=== PATIENT | male | born 1955 | race Caucasian/White ===

== ENCOUNTER 2020-02-08 23:04 | Emergency (ER) | payer MEDICARE, BC, SELFPAY ==
[2020-02-08 23:09] VITALS: BP 148/80; PULSE 70; RESP 20; TEMP 36.4; O2SAT 95; BMI 46.0
--- NOTE | 2020-02-08 23:14 | ED_ITS ---
HPI - Neck Pain/Injury General: Chief Complaint: Neck Pain/Injury Stated Complaint: neck pain Time Seen by Provider: 02/08/20 23:12 Source: patient Mode of arrival: ambulatory Limitations: no limitations History of Present Illness: HPI Narrative: Patient comes in today with guarded neck pain and right-sided paracervical muscle tenderness and tightness. Patient reports that he woke up this morning with pain in his right side of neck. Patient took ibuprofen this morning and then this evening with minimal to no relief. Patient went to go to bed tonight but had worsening pain when he rolled over in bed. Patient appears well. Patient appears in no acute distress. Review of Systems General: Reports: 10 or more systems reviewed and unremarkable except in HPI and below Musc: Reports: neck pain PFSH ED PFSH: Family History (Updated 02/04/20 @ 15:53 by Sigrid Guillen RN) Father Diabetes Social History (Updated 02/04/20 @ 15:54 by Sigrid Guillen RN) Smoking and tobacco status: former smoker Household members: spouse Marital status: Physical Exam Const: COMMON NORMALS: no acute distress and patient oriented x3 GENERAL APPEARANCE: cooperative HENMT: COMMON NORMALS: normocephalic and Normal external nose present HEAD & SCALP: normal to inspection and normocephalic NOSE: Normal external nose present MOUTH: Normal oral and palatal mucosa present THROAT: posterior oropharynx normal Eye: GENERAL EYE: appearance normal, both eyes and all related structures Neck/C-Spine: CERVICAL SPINE: Yes Paracervical muscle tenderness right, Yes Paracervical spasm right and Yes Trapezius muscle tenderness right Lymph: LYMPHATIC: no lymphadenopathy noted Chest: COMMONS NORMALS: normal inspection of the chest Resp: COMMON NORMALS: normal respiratory effort EFFORT & INSPECTION: Yes able to speak in complete sentences Cardio: COMMON NORMALS: regular rate and regular rhythm RATE: regular rate RHYTHM: regular rhythm GI: COMMON NORMALS: non-tender Back/Pelvis: COMMON NORMALS: thoracic and lumbar spine normal to inspection Extremity: COMMON NORMALS: normal to inspection Neuro: COMMON NORMALS: patient oriented x3 and moves all extremities Psych: COMMON NORMALS: mental status grossly normal and cooperative Skin: COMMON NORMALS: no rashes or lesions noted GENERAL SKIN EXAM: no rashes or lesions noted Course Vital Signs: Vital signs: Vital Signs Temperature 97.6 F 02/08/20 23:09 Pulse Rate 62 02/09/20 00:37 Respiratory Rate 18 02/09/20 00:37 Blood Pressure 131/64 02/09/20 00:37 Pulse Oximetry 97 02/09/20 00:37 MDM - Neck Pain/Injury MDM Narrative: Medical decision making narrative: Patient comes in today for complaints of right side neck pain. Patient reports awakening with the pain that is worsened throughout the day. Patient reports that movement of his neck brings on the pain and exacerbates it. Exam notes muscle tenderness and muscle spasms to the right side of the neck. No point tenderness along the vertebral spine. No carotid bruits are noted on auscultation. No carotid tenderness is noted on palpation. Vital signs are normal. Differential diagnosis includes but not limited to intervertebral disc disease, facet arthropathy, strain of the muscle, torticollis. Reviewed exam with patient recommended treatment for muscle strain. Recommend tizanidine for muscle spasticity and then Tylenol and ibuprofen otherwise for pain. Patient was medicated with hydrocodone and orphenadrine and ketorolac in the ER with some relief. Patient was also given 1 dose of morphine IM due to persistent pain and request from patient. I did discuss with patient further exercises such as stretching and range of motion exercises for the neck to help relieve some of the pain. Patient reported understanding and agreed with plan. Discharge Plan Discharge Patient Disposition: Home, Self-Care Clinical Impression: Strain of neck muscle Qualifiers: Encounter type: initial encounter Qualified Code(s): S16.1XXA - Strain of muscle, fascia and tendon at neck level, initial encounter Condition: Stable Prescriptions: New tizanidine 4 mg tablet 4 mg PO Q6H PRN (Reason: muscle spasticity) Qty: 20 RF: 0 No Action metoprolol tartrate 25 mg tablet 25 mg PO BID RF: 0 spironolactone 25 mg tablet 25 mg PO DAILY RF: 0 furosemide 40 mg tablet 40 mg PO DAILY RF: 0 clopidogrel 75 mg tablet 75 mg PO DAILY RF: 0 losartan 100 mg tablet 100 mg PO DAILY RF: 0 simvastatin 40 mg tablet 40 mg PO DAILY RF: 0 Xarelto 15 mg tablet 15 mg PO DAILY RF: 0 Farxiga 5 mg tablet 5 mg PO DAILY RF: 0 Humulin R Regular U-100 Insuln 100 unit/mL solution 10 unit SUBCUT TID RF: 0 nitroglycerin [Nitrostat] 0.4 mg tablet, sublingual 0.4 mg SUBLINGUAL Q5M PRNRF: 0 colchicine 0.6 mg capsule 0.6 mg PO DAILY RF: 0 Discharge Orders: Discharge Order (Routine); Ordered 02/09/20 Ordered By: Mina Gonzalez Discharge Diet: Usual diet Discharge Activity: Increase activity as tolerated Patient Instructions: Cervical Spine Strain (ED) Activity Restrictions/Additional Instructions: Drink plenty of fluids. Use acetaminophen or ibuprofen as needed for pain. Take muscle relaxer 4 times a day to help with muscle tension. Gently use range of motion and stretching exercises to help relax the neck muscles. Use a towel roll under the neck while sleeping. Follow-up with primary care for further treatment. Return to the ER for difficulty breathing or new concerns. Discharge Date/Time: 02/09/20 00:39 Coding Level of Care Code ED Robotics Testing Technician for Rupa Monique Exam Comprehensive
[2020-02-08] MEDS: HYDROcodone-acetaminophen 7.5-325 mg Tablet 1 TAB PO (23:26)
[2020-02-08] MEDS: ketorolac 30 mg/mL INJ IM (23:27)
[2020-02-08] MEDS: orphenadrine 30 mg/mL Inj 2 mL 60 MG IM (23:27)
[2020-02-09 00:32] VITALS: RESP 18; O2SAT 97
[2020-02-09] MEDS: morphine 4 mg/mL SDV 1 mL IM (00:32)
[2020-02-09 00:33] VITALS: BP 131/64; PULSE 64; RESP 18; O2SAT 97
[2020-02-09 00:37] VITALS: BP 131/64; PULSE 62; RESP 18; O2SAT 97
== END 2020-02-09 00:39 | disposition home or self-care (01) ==
PROVIDERS: Emergency Provider Nurse Practitioner Family
DX: S16.1XXA Strain of muscle, fascia and tendon at neck level, initial encounter (principal); X58.XXXA Exposure to other specified factors, initial encounter; Z79.02 Long term (current) use of antithrombotics/antiplatelets; Z87.891 Personal history of nicotine dependence
CPT/HCPCS: 12345; 96372; 99281; 99283; J1885; J2270; J2360

== ENCOUNTER 2020-05-07 22:36 | Emergency (ER) | payer MEDICARE, BC, SELFPAY ==
[2020-05-07 22:45] VITALS: BP 153/91; PULSE 77; RESP 14; TEMP 36.5; O2SAT 96; BMI 47.5
[2020-05-07 23:36] VITALS: BP 151/71; PULSE 76; RESP 17; O2SAT 97
--- NOTE | 2020-05-07 23:36 | W.ED.EXTPRO ---
HPI - Extremity Problem General: Chief complaint: Extremity Problem,Nontraumatic Stated complaint: leg cramps Time Seen by Provider: 05/07/20 23:35 History of Present Illness: HPI Narrative: Patient is a 64-year-old male who comes to the ED with right lower extremity leg cramp. Patient has a past medical history of morbid obesity, diabetes, hypertension, CKD, A. fib and diastolic dysfunction. Patient is on Xarelto. Patient states that last night he woke up in the middle night with a painful leg cramp in his right calf. Pain has now migrated down into the lower leg just above the ankle. Patient also endorses having some right lower extremity edema. Patient has taken ibuprofen at home to help with pain. Patient rates pain in the leg at 10 and 10. Denies past medical history of blood clots. Patient denies any recent injury or trauma to leg. Associated symptoms: Deny chest pain, fever(s) or rash Review of Systems Const: Denies: fever(s), chills or fatigue Eyes: Denies: change in vision or eye discomfort ENMT: Denies: throat pain, odynophagia, nasal discharge or nasal congestion Card: Denies: chest pain, palpitations, edema, swelling of feet/ankles, dyspnea on exertion or orthopnea Resp: Denies: dyspnea, productive cough or non-productive cough GI: Denies: abdominal pain, nausea, vomiting, diarrhea, constipation or hematochezia : Denies: flank pain, difficulty urinating, dysuria or hematuria Musc: Reports: extremity pain (Right lower extremity), extremity swelling (Right lower extremity) and muscle cramps (right calf); Denies: neck pain or back pain Skin/Breast: Denies: rash or new lesions Neuro: Denies: headache(s), numbness in extremities or weakness in extremities PFSH ED PFSH: Medical History Anticoagulant long-term use Atrial fibrillation CKD (chronic kidney disease) Diabetes Diastolic dysfunction HTN (hypertension) Morbid obesity ARELY on CPAP Surgical History S/P gastric bypass S/P PTCA (percutaneous transluminal coronary angioplasty) Family History Father Diabetes Social History Smoking and tobacco status: former smoker Household members: spouse Marital status: Physical Exam Const: COMMON NORMALS: patient oriented x3 and alert GENERAL APPEARANCE: cooperative; not comfortable (Patient appears uncomfortable due to pain right leg.) NUTRITIONAL APPEARANCE: obese morbidly obese HENMT: COMMON NORMALS: normocephalic HEAD & SCALP: normocephalic MOUTH: Normal oral and palatal mucosa present THROAT: posterior oropharynx normal and uvula midline Eye: COMMON NORMALS: Equal, round and reactive pupils present PUPIL: Yes Equal, round and reactive pupils present Neck/C-Spine: COMMON NORMALS: supple GENERAL: Yes normal visual inspection Resp: COMMON NORMALS: normal respiratory effort, No retractions, No use of accessory muscles and clear to auscultation bilaterally AUSCULTATION: clear to auscultation bilaterally Cardio: COMMON NORMALS: regular rate, regular rhythm, S1 normal heart sound present, S2 normal heart sound present, No gallops present (Cardio), No clicks present (Cardio) and No murmurs present (Cardio) RATE: regular rate RHYTHM: regular rhythm HEART SOUNDS: S1 normal heart sound present and S2 normal heart sound present PERIPHERAL PULSES: radial pulses present positive bilateral 2+ and dorsalis pedis present positive bilateral 1+ GI: COMMON NORMALS: Normal to inspection, nondistended, normoactive bowel sounds present, Soft to palpation, non-tender and no masses PALPATION: Yes Soft to palpation : COMMON NORMALS: Yes no CVA tenderness BLADDER/KIDNEY EXAM: Yes no CVA tenderness Back/Pelvis: COMMON NORMALS: no CVA tenderness Extremity: GENERAL: Yes normal exam except as noted and Yes edema (Right lower extremity has 1+ nonpitting edema.) RIGHT LOWER EXTREMITY: Yes lower leg Right lower leg: Yes inspection (No erythema or visible deformity seen.), Yes palpation (Tenderness upon palpation of the inferior aspect of right calf.) and Yes neurovascular exam (Pedal pulse 2+) Neuro: COMMON NORMALS: patient oriented x3 and moves all extremities SENSORIUM/ORIENTATION: Yes alert Skin: GENERAL SKIN EXAM: dry skin Course Vital Signs: Vital signs: Vital Signs Temperature 97.7 F 05/08/20 01:46 Pulse Rate 71 05/08/20 01:46 Respiratory Rate 18 05/08/20 01:46 Blood Pressure 136/71 05/08/20 01:46 Pulse Oximetry 93 05/08/20 01:46 MDM - Extremity (Nontraumatic) MDM Narrative: Medical decision making narrative: Patient is a 64-year-old male who comes to the ED with a cramp in right lower extremity. Patient denies any injury or trauma to cause pain. Patient has some tenderness upon palpation of the right calf with some mild edema of the right leg as well. Ultrasound venous duplex of right lower extremity showed no blood clot or DVT seen. Patient was given a muscle relaxer and some morphine while here in the ED and symptoms did improve. Glucose of 313 and rest of CMP was unremarkable. Patient was given 5 units of insulin Novalog. Patient was discharged and told to follow-up with PCP 7 to 10 days for reevaluation. Sent patient home with a prescription for Robaxin. Return to ED precautions given. Patient understood and agreed with plan Lab Data: Attestation: I reviewed the patient's lab results. Labs: Lab Results 05/08/20 Range/Units 00:10 Sodium 135 L (136-145) mmol/L Potassium 4.1 (3.5-5.1) mmol/L Chloride 97 L (98-107) mmol/L Carbon Dioxide 24 (22-29) mmol/L Anion Gap 18.1 (5-19) BUN 32 H (8-23) mg/dL Creatinine 1.2 (0.7-1.2) mg/dL GFR Calculation 61.1 L (90-130) mL/min Glucose 313 H (65-115) mg/dL Calculated Osmolal ity 299 H (285-295) mOsm/k g Calcium 10.1 (8.5-10.5) mg/dL Total Bilirubin 0.6 (0.15-1.2) mg/dL AST 23 (0-40) U/L ALT 23 (0-41) U/L Alkaline Phosphata se 76 (40-130) IU/L Total Protein 7.2 (6.6-8.7) g/dL Albumin 4.5 (3.5-5.2) g/dL Globulin 2.7 (1.3-4.6) g/dL Imaging Data^: US Vascular: Attestation: I personally reviewed and interpreted this imaging study as follows: Radiologist's impression: Ultrasound venous duplex of right lower extremity?prelim report shows no DVTs or blood clots seen. Discharge Plan Discharge Patient Disposition: Home Clinical Impression: Cramp in lower leg Condition: Stable Prescriptions: New methocarbamol 750 mg tablet 750 mg PO Q8H Qty: 15 RF: 0 No Action Humulin R Regular U-100 Insuln 100 unit/mL solution 10 unit SUBCUT TID RF: 0 Farxiga 5 mg tablet 10 mg PO DAILY RF: 0 clopidogrel 75 mg tablet 75 mg PO DAILY 90 Days Qty: 90 RF: 3 furosemide 40 mg tablet 40 mg PO DAILY 90 Days Qty: 90 RF: 3 losartan 100 mg tablet 100 mg PO DAILY 90 Days Qty: 90 RF: 3 metoprolol tartrate 25 mg tablet 25 mg PO BID 90 Days Qty: 180 RF: 3 Xarelto 15 mg tablet 15 mg PO DAILY 90 Days Qty: 90 RF: 3 simvastatin 40 mg tablet 40 mg PO DAILY 90 Days Qty: 90 RF: 3 nitroglycerin [Nitrostat] 0.4 mg tablet, sublingual 0.4 mg SUBLINGUAL Q5M PRN (Reason: chest pain) 90 Days Qty: 25 RF: 3 spironolactone 25 mg tablet 25 mg PO DAILY Qty: 90 RF: 3 tizanidine 4 mg tablet 4 mg PO Q6H PRN (Reason: muscle spasticity) Qty: 20 RF: 0 Discharge Orders: Discharge Order (Routine); Ordered 05/08/20 Ordered By: Rustam Venegas Referrals: Nam Mazariegos MD [Primary Care Provider] - Discharge Diet: Regular Discharge Activity: Increase activity as tolerated Patient Instructions: Leg Cramps (ED) Activity Restrictions/Additional Instructions: Follow-up with medical provider as directed in about 7 days. Take medications as prescribed. Sending you home with a prescription for muscle relaxer (methocarbamol). Muscle relaxer can cause some drowsiness so take at night before bed. If you do take during the day use with caution. Do not take tizanidine your other muscle relaxer along with methocarbamol. Take [id number] Tylenol for pain. Stretch right lower leg in place cold pack on lying down for symptoms. Return to the ER or your medical provider if condition worsens. Please read and understand discharge instructions. If any questions, please ask. Discharge Date/Time: 05/08/20 01:46 Coding Level of Care Code ED Parking Technician for Chg Fwd Exam Comprehensive
[2020-05-07] MEDS: HYDROcodone-acetaminophen 7.5-325 mg Tablet 1 TAB PO (23:58)
[2020-05-08] VITALS: BP 139/63; PULSE 73; RESP 18; O2SAT 95
[2020-05-08 00:30] VITALS: BP 137/71; PULSE 79; RESP 17; O2SAT 95
[2020-05-08] MEDS: methocarbamol 750 mg Tablet PO (00:33)
[2020-05-08 00:44] VITALS: RESP 17; O2SAT 97
[2020-05-08] MEDS: morphine 4 mg/mL SDV 1 mL IM (00:44)
[2020-05-08 01:05] VITALS: RESP 18; O2SAT 93
[2020-05-08 01:46] VITALS: BP 136/71; PULSE 71; RESP 18; TEMP 36.5; O2SAT 93
--- NOTE | 2020-05-08 23:42 | USCV_ITS ---
Adrian Hernandez Age: 64 Gender: M : 1955 Exam Date: 05/08/2020 01:09 Ordering Phys: Rustam Venegas Technologist: Asher Mcintyre Exam Location: [facility] – [place]_ Indication: RT LEG PAIN AND SWELLING HISTORY: Lower extremity pain. PROCEDURES: Venous duplex imaging was performed in only the right lower extremity. The following venous structures were evaluated: common femoral vein, profunda vein, proximal portion of the greater saphenous vein, superficial femoral vein, and the popliteal vein. In addition, the posterior tibial and peroneal trunk were evaluated. On the right side, the common femoral, superficial femoral, profunda femoral, popliteal, posterior tibial, greater saphenous veins and the peroneal trunk were identified and interrogated in the standard fashion. These veins were found to be easily compressible with spontaneous blood flow. No evidence of insufficiency or thrombus noted. FINDINGS: Normal 2-D Doppler and augmentation and compressibility throughout the lower extremity venous structures. Additional imaging through the proximal calf veins also reveals no thrombus. Limited evaluation of the greater saphenous vein is patent with no thrombus.. The veins were found to be easily compressible with spontaneous blood flow. Non pulsatile flow pattern. CONCLUSIONS No evidence of DVT in the above-mentioned identifiable veins. Dr Keesha Alfaro MD [facility] (Electronically Signed) Final Date: 08 May 2020 18:43 S
== END 2020-05-08 01:46 | disposition home or self-care (01) ==
PROVIDERS: Emergency Provider Physician Assistant; PCP Family Medicine
DX: R25.2 Cramp and spasm (principal); Z79.02 Long term (current) use of antithrombotics/antiplatelets; Z79.4 Long term (current) use of insulin; I48.91 Unspecified atrial fibrillation; I10 Essential (primary) hypertension; E11.9 Type 2 diabetes mellitus without complications; Z87.891 Personal history of nicotine dependence; M79.604 Pain in right leg
CPT/HCPCS: 12345; 80053; 93971; 96372; 99281; 99283; J1815; J2270

== ENCOUNTER 2021-01-21 16:18 | Emergency (ER) | payer MEDICARE, BC, SELFPAY ==
[2021-01-21 16:48] VITALS: BP 122/76; PULSE 77; RESP 16; TEMP 36.8; O2SAT 96; BMI 44.7
--- NOTE | 2021-01-21 17:48 | XRR_ITS ---
PROCEDURE INFORMATION: Exam: XR Right Foot Exam date and time: 01/21/2021 5:48 PM Age: 65 years old Clinical indication: Pain; Foot; Left; Prior surgery; Surgery date: 3-7 days post-operative; Additional info: Foot pain TECHNIQUE: Imaging protocol: XR Right foot. Views: 3 or more views. COMPARISON: No relevant prior studies available. FINDINGS: Bones/joints: Surgical resection at the level of the 3rd metatarsal head with expected postsurgical changes. Chronic bony remodeling and absence of the 1st metatarsal distally and 1st proximal phalanx proximally may reflect postsurgical changes. Medial subluxation of the 2nd proximal phalanx relative to the metatarsal head with severe osteoarthritis is likely chronic. 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 Moderate tibial talar joint osteoarthritis. Soft tissues: Soft tissue swelling about the forefoot. XR/XR foot RT min 3V* [id number] IMPRESSION: 1. Surgical resection at the level of the 3rd metatarsal head with expected postsurgical changes. 2. Chronic bony remodeling and absence of the 1st metatarsal distally and 1st proximal phalanx proximally may reflect postsurgical changes. 3. Medial subluxation of the 2nd proximal phalanx relative to the metatarsal head with severe osteoarthritis is likely chronic. 4. 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 5. Moderate tibial talar joint osteoarthritis. 6. Soft tissue swelling about the forefoot.
--- NOTE | 2021-01-21 18:01 | W.ED.EXTPRO ---
HPI - Extremity Problem General: Chief complaint: Extremity Injury, Lower Stated complaint: Left foot injury s/p surgery Time Seen by Provider: 01/21/21 17:47 Source: patient Mode of arrival: ambulatory Limitations: no limitations History of Present Illness: HPI Narrative: 65-year-old male who had surgery 2 days ago to have his second toe removed on his left foot. He states that his grandsons wrestling today and struck his foot and he noticed it was bleeding underneath the dressings. He has not taken his dressings off and is unsure what exactly happened. He denies any pain currently. Denies any worsening improving factors. Associated symptoms: Deny chest pain, fever(s) or rash Review of Systems Const: Denies: fever(s), chills, body aches or change in appetite Eyes: Denies: blurry vision or eye discomfort ENMT: Denies: throat pain or dental pain Card: Denies: chest pain Resp: Denies: dyspnea GI: Denies: abdominal pain, nausea, vomiting or diarrhea : Denies: dysuria Musc: Denies: neck pain or back pain Skin/Breast: Denies: rash Neuro: Denies: headache(s) Psych: Denies: depression Mateo/Lymph: Denies: easy bruising All/Imm: Denies: urticaria PFSH ED PFSH: Medical History (Updated 01/21/21 @ 18:02 by Luz Marina Ojeda MD) Anticoagulant long-term use Atrial fibrillation CKD (chronic kidney disease) Diabetes Diastolic dysfunction HTN (hypertension) Morbid obesity ARELY on CPAP Surgical History S/P gastric bypass S/P PTCA (percutaneous transluminal coronary angioplasty) Family History Father Diabetes Social History Smoking and tobacco status: former smoker Household members: spouse Marital status: Physical Exam Const: COMMON NORMALS: no acute distress, patient oriented x3 and healthy appearing HENMT: COMMON NORMALS: normocephalic and atraumatic HEAD & SCALP: normocephalic and atraumatic Eye: COMMON NORMALS: Equal, round and reactive pupils present and EOMs intact bilaterally PUPIL: Yes Equal, round and reactive pupils present Neck/C-Spine: COMMON NORMALS: full ROM and supple Chest: COMMONS NORMALS: normal inspection of the chest and normal palpation of entire chest wall Resp: COMMON NORMALS: normal respiratory effort, No retractions, No use of accessory muscles and clear to auscultation bilaterally AUSCULTATION: clear to auscultation bilaterally Cardio: COMMON NORMALS: regular rate, regular rhythm and No murmurs present (Cardio) RATE: regular rate RHYTHM: regular rhythm GI: COMMON NORMALS: Normal to inspection, nondistended, normoactive bowel sounds present, Soft to palpation, non-tender and no masses PALPATION: Yes Soft to palpation Extremity: COMMON NORMALS: full ROM NARRATIVE EXTREMITY EXAM: Post surgery for second toe removal on the left wound is clean dry and intact he has no bleeding at this time. Parents of may have popped one suture but is not entirely evident. Wound is not gaping and is not bleeding. Neuro: COMMON NORMALS: patient oriented x3, moves all extremities and no focal motor deficits Psych: COMMON NORMALS: mental status grossly normal, Normal thought process present and cooperative THOUGHT PROCESS: Normal thought process present Skin: COMMON NORMALS: no rashes or lesions noted and no wounds GENERAL SKIN EXAM: no rashes or lesions noted Course Vital Signs: Vital signs: Vital Signs Temperature 98.3 F 01/21/21 16:48 Pulse Rate 77 01/21/21 16:48 Respiratory Rate 16 01/21/21 16:48 Blood Pressure 122/76 01/21/21 16:48 Pulse Oximetry 96 01/21/21 16:48 MDM - Extremity (Nontraumatic) MDM Narrative: Medical decision making narrative: Patient presents with injury to his foot. He has had surgery on that foot 2 days ago appears like he may have popped one suture but wound is still held together very well and is no longer bleeding. We will place a Steri-Strip across and redress needs to follow-up with his foot surgeon next week as scheduled. Discharge Plan Discharge Patient Disposition: Home Clinical Impression: Visit for wound check Condition: Stable Prescriptions: No Action Humulin R Regular U-100 Insuln 100 unit/mL solution 10 unit SUBCUT TID RF: 0 Farxiga 5 mg tablet 10 mg PO DAILY RF: 0 clopidogrel 75 mg tablet 75 mg PO DAILY 90 Days Qty: 90 RF: 3 losartan 100 mg tablet 100 mg PO DAILY 90 Days Qty: 90 RF: 3 metoprolol tartrate 25 mg tablet 25 mg PO BID 90 Days Qty: 180 RF: 3 simvastatin 40 mg tablet 40 mg PO DAILY 90 Days Qty: 90 RF: 3 nitroglycerin [Nitrostat] 0.4 mg tablet, sublingual 0.4 mg SUBLINGUAL Q5M PRN (Reason: chest pain) 90 Days Qty: 25 RF: 3 allopurinol 100 mg tablet 100 mg PO DAILY RF: 0 Xarelto 15 mg tablet 15 mg PO DAILY 90 Days Qty: 90 RF: 3 furosemide 40 mg tablet 40 mg PO DAILY 90 Days Qty: 90 RF: 3 spironolactone 25 mg tablet 25 mg PO DAILY Qty: 90 RF: 3 tizanidine 4 mg tablet 4 mg PO Q6H PRN (Reason: muscle spasticity) Qty: 20 RF: 0 methocarbamol 750 mg tablet 750 mg PO Q8H Qty: 15 RF: 0 Discharge Orders: Discharge ED (Routine); Ordered 01/21/21 Ordered By: Luz Marina Ojeda Referrals: Nam Mazariegos MD [Primary Care Provider] - Discharge Diet: Advance as tolerated Discharge Activity: Resume usual activity Patient Instructions: Suture Care (ED) Coding Level of Care Code ED Party Plan Sales Consultant for Rupa Monique
[2021-01-21 19:29] VITALS: PULSE 62
[2021-01-21 19:34] VITALS: BP 117/76; PULSE 69; RESP 18; O2SAT 97
[2021-01-21 20:14] VITALS: BP 117/76; PULSE 80; RESP 18; O2SAT 99
--- NOTE | 2021-01-21 20:15 | PC.NURSE ---
Surgical wound cleaned and 3 steri stripes applied to open section wrapped with kerlex and all SMCs intact post and prior to dressing.
== END 2021-01-21 20:18 | disposition home or self-care (01) ==
PROVIDERS: Emergency Provider Emergency Medicine; PCP Family Medicine
DX: S99.922A Unspecified injury of left foot, initial encounter (principal); X58.XXXA Exposure to other specified factors, initial encounter
CPT/HCPCS: 73630; 99283

== ENCOUNTER 2021-04-07 12:19 | Outpatient (CLI) | payer MEDICARE, BC, SELFPAY ==
--- NOTE | 2021-04-07 12:45 | USCV_ITS ---
Adrian Hernandez Age: 65 Gender: M : 1955 Exam Date: 04/07/2021 12:34 Ordering Phys: Violeta Vacne MD ([email or web address]) Technologist: Exam Location: [facility] [place] Indication: LT TOE REMOVED Risk Factors: None Previous Vascular Surgery: RIGHT LEFT BP: 140.0 / 80.00 BP: 140.0/ 80.00 0 0 Waveform Velocity (cm/s) Velocity (cm/s) Waveform Triphasic 81.6 Iliac Prox 92.5 Triphasic Triphasic 85.3 Iliac Mid 76.7 Triphasic Triphasic 73.2 Iliac Distal 83.3 Triphasic Triphasic 61.9 WELDING MACHINE ASSEMBLER 93.8 Triphasic Triphasic 60.0 SFA Prox 84.6 Triphasic Biphasic 73.2 SFA Mid 70.0 Triphasic Triphasic 83.5 SFA Dist 73.3 Triphasic Triphasic 68.5 POP 54.2 Triphasic Triphasic 79.7 CHIEF OPERATING OFFICER 100.4 Triphasic Triphasic 54.0 DPA 64.7 Triphasic DARÍO 1.1 1.1 FINDINGS Normal resting ABIs bilaterally Normal Doppler flow velocities and Doppler waveforms. Intimal thickening and minimal plaques in the iliac and femoral arteries bilaterally CONCLUSIONS Intimal thickening and minimal plaques in the iliac and femoral arteries bilaterally. Normal resting ABIs bilaterally suggesting no significant stenosis. Dr Keesha Alfaro MD [facility] (Electronically Signed) Final Date: 10 April 2021 09:16 S
== END 2021-04-07 12:20 | disposition home or self-care (01) ==
LOC: RAD 12:25
PROVIDERS: PCP Family Medicine; Visit Provider Internal Medicine Cardiovascular Disease
DX: I73.9 Peripheral vascular disease, unspecified (principal); Z89.422 Acquired absence of other left toe(s)
CPT/HCPCS: 93925

== ENCOUNTER 2021-12-27 11:00 | Emergency (ER) | payer MEDICARE, SELFPAY ==
--- NOTE | 2021-12-27 11:05 | W.ED.GENADLT ---
Documented by User: Doroteo Levy DO 12/27/21 11:44 HPI - General Adult General: Chief complaint: Chest Pain Stated complaint: dizziness Time Seen by Provider: 12/27/21 11:03 Source: patient Mode of arrival: ambulatory Limitations: no limitations PFSH ED PFSH: Medical History (Updated 12/27/21 @ 13:48 by Sai Aponte) Anticoagulant long-term use Atrial fibrillation CKD (chronic kidney disease) Diabetes Diastolic dysfunction HTN (hypertension) Morbid obesity ARELY on CPAP Surgical History S/P gastric bypass S/P PTCA (percutaneous transluminal coronary angioplasty) Family History Father Diabetes Social History Household members: spouse Marital status: Course Vital Signs: Vital signs: Vital Signs Temperature 97.6 F 12/27/21 11:44 Pulse Rate 60 12/27/21 11:44 Respiratory Rate 18 12/27/21 11:44 Blood Pressure 143/74 12/27/21 11:44 Pulse Oximetry 100 12/27/21 11:44 MDM - General Adult Medical Decision Making Initially signed up for this patient he was instead placed in another physician spot it did not see the patient or participate in his care. Due to the patient's symptom condition IV was established lab work and imaging will be obtained we will continue to follow. Underlying concerns of benign positional vertigo versus other prominent we will continue to follow CT of the head without contrast will be obtained due to patient being having a known history atrial fibrillation anticoagulation due to underlying concerns of potential small stroke however that is less common especially with the patient has no other focal neurodeficits or any other associated symptoms. We will continue to follow. Lab Data : 12/27/21 11:36 12/27/21 11:36 Radiology Impressions Chest X-Ray 12/27/21 11:19 Impression: Cardiomegaly and atherosclerosis. Head CT 12/27/21 11:19 IMPRESSION: 1. No evidence of intracranial hemorrhage or mass effect. 2. Mild small vessel changes. Moderate parenchymal volume loss. 3. Intracranial vascular calcification. 4. No acute intracranial findings. Laboratory Results WBC 6.2 10^3/uL (4.0-10.0) 12/27/21 11:36 RBC 5.41 10^6/uL (4.1-5.3) H 12/27/21 11:36 Hgb 15.3 g/dL (11.7-16.6) 12/27/21 11:36 Hct 44.6 % (42.0-52.0) 12/27/21 11:36 MCV 82.4 fl (80-94) 12/27/21 11:36 MCH 28.3 pg (28.0-34.0) 12/27/21 11:36 MCHC 34.3 g/dL (30.0-36.0) 12/27/21 11:36 RDW 13.7 % (12.1-15.1) 12/27/21 11:36 Plt Count 174 10^3/cmm (130-400) 12/27/21 11:36 MPV 11.9 fL (7.4-10.4) H 12/27/21 11:36 Neut % (Auto) 51.4 % 12/27/21 11:36 Lymph % (Auto) 35.5 % 12/27/21 11:36 [place] % (Auto) 8.7 % 12/27/21 11:36 Eos % (Auto) 2.9 % 12/27/21 11:36 Baso % (Auto) 1.3 % 12/27/21 11:36 Neut # (Auto) 3.19 10^3/uL (1.8-7.7) 12/27/21 11:36 Lymph # (Auto) 2.2 10^3/uL (0.8-4.8) 12/27/21 11:36 [place] # (Auto) 0.5 10^3/uL (0.2-0.9) 12/27/21 11:36 Eos # (Auto) 0.2 10^3/uL (0.0-0.8) 12/27/21 11:36 Baso # (Auto) 0.1 10^3/uL (0.0-0.1) 12/27/21 11:36 Nucleated RBC % (auto) 0 % 12/27/21 11:36 Nucleated RBCs # 0.0 /100WBC 12/27/21 11:36 Sodium 139 mmol/L (136-145) 12/27/21 11:36 Potassium 4.2 mmol/L (3.5-5.1) 12/27/21 11:36 Chloride 101 mmol/L (98-107) 12/27/21 11:36 Carbon Dioxide 23 mmol/L (22-29) 12/27/21 11:36 Anion Gap 19.2 (5-19) H 12/27/21 11:36 BUN 15 mg/dL (8-23) 12/27/21 11:36 Creatinine 0.6 mg/dL (0.7-1.2) L 12/27/21 11:36 GFR Calculation 135.2 mL/min (90-130) H 12/27/21 11:36 Glucose 146 mg/dL (65-115) H 12/27/21 11:36 Calculated Osmolality 291 mOsm/kg (285-295) 12/27/21 11:36 Calcium 9.0 mg/dL (8.5-10.5) 12/27/21 11:36 Total Bilirubin 0.7 mg/dL (0.15-1.2) 12/27/21 11:36 AST 11 U/L (0-40) 12/27/21 11:36 ALT 13 U/L (0-41) 12/27/21 11:36 Alkaline Phosphatase 69 IU/L (40-130) 12/27/21 11:36 Troponin T Baseline 14 ng/L (0-15) 12/27/21 11:36 Troponin T 120 Minute 12.17 ng/L (0-15) 12/27/21 13:27 Total Protein 7.1 g/dL (6.6-8.7) 12/27/21 11:36 Albumin 4.4 g/dL (3.5-5.2) 12/27/21 11:36 Globulin 2.7 g/dL (1.3-4.6) 12/27/21 11:36 Urine Color Yellow (Yellow) 12/27/21 13:50 Urine Appearance Clear (CLEAR) 12/27/21 13:50 Urine pH 7 (5-7) 12/27/21 13:50 Ur Specific [place] 1.005 (1.005-1.030) 12/27/21 13:50 Urine Protein Neg (Negative) 12/27/21 13:50 Urine Glucose (UA) 2+ (Normal) H 12/27/21 13:50 Urine Ketones Negative (Negative) 12/27/21 13:50 Urine Blood Neg (Negative) 12/27/21 13:50 Urine Nitrate Negative (Negative) 12/27/21 13:50 Urine Bilirubin Neg (Negative) 12/27/21 13:50 Urine Urobilinogen Norm mg/dL (Negative) 12/27/21 13:50 Ur Leukocyte Esterase Negative (Negative) 12/27/21 13:50 Discharge Plan Discharge Clinical Impression: Vertigo, Nausea & vomiting Condition: Stable Prescriptions: New meclizine 25 mg tablet 25 mg PO QID PRN (Reason: vertigo) Qty: 30 0RF ondansetron 4 mg tablet,disintegrating 4 mg PO Q8H PRN (Reason: nausea and vomiting) Qty: 20 0RF prednisone 20 mg tablet 20 mg PO DAILY 3 Days Qty: 3 0RF No Action allopurinol 100 mg tablet 100 mg PO DAILY PRN (Reason: gout) 0RF nitroglycerin [Nitrostat] 0.4 mg tablet, sublingual 0.4 mg SUBLINGUAL Q5M PRN (Reason: chest pain) 90 Days Qty: 25 3RF Rx Instructions: do not exceed 3 doses per episode Ozempic 1 mg/dose (4 mg/3 mL) pen injector 1 mg SUBCUT Q7D 0RF Rx Instructions: on saturday multivitamin Tablet 1 tab PO DAILY 0RF Humulin R U-500 (Conc) Insulin 500 unit/mL solution See Rx Instructions .ROUTE .COMPLEX 0RF Rx Instructions: 90 units in the am and 50 units at bedtime Farxiga 10 mg tablet 10 mg PO QAM 0RF furosemide 40 mg tablet 40 mg PO QAM 0RF clopidogrel 75 mg tablet 75 mg PO QAM 0RF spironolactone 25 mg tablet 25 mg PO QAM 0RF simvastatin 40 mg tablet 40 mg PO QAM 0RF losartan 100 mg tablet 100 mg PO QAM 0RF metoprolol tartrate 25 mg tablet 25 mg PO QAM 0RF Xarelto 15 mg tablet 15 mg PO QAM 0RF Rx Instructions: must administer with evening meal Discharge Orders: Discharge ED (Routine); Ordered 12/27/21 Ordered By: Sai Aponte Referrals: Nam Mazariegos MD [Primary Care Provider] - 1-3 days Discharge Diet: Advance as tolerated Discharge Activity: Increase activity as tolerated Patient Instructions: Vertigo (ED), Acute Nausea and Vomiting (ED), Benign Paroxysmal Positional Vertigo (ED) Activity Restrictions/Additional Instructions: Follow-up with your primary care doctor in 2 to 3 days, take medications provided, return the interim if any of your symptoms persist or worse. Coding Level of Care Code ED Cage Maker Machine for Chg Fwd Exam Comprehensive Documented by User: Sai Aponte 12/27/21 14:24 HPI - General Adult General: Chief complaint: Chest Pain Stated complaint: dizziness Time Seen by Provider: 12/27/21 11:03 History of Present Illness: 66-year-old male presents to emergency department chief complaint of vertigo and dizziness is this been ongoing for about 630 this morning patient reports he has had significant spinning of the room when he opens his eyes he reports a known history of atrial fibrillation he is on Xarelto for. Patient reports no chest pain palpitations shortness of breath associated with his dizziness he reports he has a moderate nausea with no vomiting associated with it. Patient per his reports having a known history of vertigo previously. However it has been several years patient does not recall any other associated symptoms besides nausea and vomiting associated with his vertigo. Patient does not report any prior or recent head injuries reporting no other associated symptoms. Associated symptoms: Deny chest pain, dyspnea, malaise, nausea, rash, palpitations or vomiting Review of Systems General: Reports: 10 or more systems reviewed and unremarkable except in HPI and below Const: Denies: fever(s), chills, fatigue or malaise Eyes: Reports: blurry vision (Vertigo) Card: Denies: chest pain or palpitations Resp: Denies: dyspnea or productive cough GI: Denies: abdominal pain, nausea or vomiting : Denies: flank pain Musc: Denies: extremity pain or extremity swelling Skin/Breast: Denies: rash or pruritus Neuro: Reports: dizziness and vertigo Psych: Denies: anxiety or depression [place]/Lymph: Denies: easy bleeding All/Imm: Denies: urticaria, throat swelling or facial swelling PFSH ED PFSH: Medical History (Updated 12/27/21 @ 13:48 by Sai Aponte) Anticoagulant long-term use Atrial fibrillation CKD (chronic kidney disease) Diabetes Diastolic dysfunction HTN (hypertension) Morbid obesity ARELY on CPAP Surgical History S/P gastric bypass S/P PTCA (percutaneous transluminal coronary angioplasty) Family History Father Diabetes Social History Household members: spouse Marital status: Physical Exam Const: COMMON NORMALS: no acute distress, patient oriented x3 and healthy appearing HENMT: COMMON NORMALS: normocephalic and atraumatic HEAD & SCALP: normocephalic and atraumatic Eye: OTHER: Horizontal nystagmus noted to both eyes. Neck/C-Spine: COMMON NORMALS: full ROM, supple and no JVD Lymph: LYMPHATIC: no lymphadenopathy noted Chest: COMMONS NORMALS: normal inspection of the chest and normal palpation of entire chest wall Resp: COMMON NORMALS: normal respiratory effort, No retractions and clear to auscultation bilaterally EFFORT & INSPECTION: Yes able to speak in complete sentences and Yes symmetric chest movement AUSCULTATION: clear to auscultation bilaterally Cardio: COMMON NORMALS: no JVD, regular rate and regular rhythm RATE: regular rate RHYTHM: regular rhythm GI: COMMON NORMALS: Normal to inspection, nondistended, normoactive bowel sounds present, Soft to palpation and non-tender INSPECTION: Yes normal to inspection PALPATION: Yes Soft to palpation : COMMON NORMALS: Yes no CVA tenderness BLADDER/KIDNEY EXAM: Yes no CVA tenderness Back/Pelvis: COMMON NORMALS: no CVA tenderness Extremity: COMMON NORMALS: normal to inspection and full ROM Neuro: COMMON NORMALS: patient oriented x3, CN's II-XII intact bilaterally, moves all extremities and no focal motor deficits Psych: COMMON NORMALS: mental status grossly normal, Normal thought process present, cooperative and normal affect THOUGHT PROCESS: Normal thought process present Skin: COMMON NORMALS: no rashes or lesions noted GENERAL SKIN EXAM: no rashes or lesions noted Course Vital Signs: Vital signs: Vital Signs Temperature 97.6 F 12/27/21 11:44 Pulse Rate 60 12/27/21 11:44 Respiratory Rate 18 12/27/21 11:44 Blood Pressure 143/74 12/27/21 11:44 Pulse Oximetry 100 12/27/21 11:44 [facility] - General Adult Medical Decision Making Initially signed up for this patient he was instead placed in another physician spot it did not see the patient or participate in his care. Due to the patient's symptom condition IV was established lab work and imaging will be obtained we will continue to follow. Underlying concerns of benign positional vertigo versus other prominent we will continue to follow CT of the head without contrast will be obtained due to patient being having a known history atrial fibrillation anticoagulation due to underlying concerns of potential small stroke however that is less common especially with the patient has no other focal neurodeficits or any other associated symptoms. We will continue to follow. Patient's lab work imaging came back reassuring signatory troponin also came back unremarkable the patient be started on additional medication for the associated symptoms advised further follow-up primary care in 2 to 3 days in which is advised to return the interim if any of his symptoms persist or worse. Lab Data : 12/27/21 11:36 12/27/21 11:36 Radiology Impressions Chest X-Ray 12/27/21 11:19 Impression: Cardiomegaly and atherosclerosis. Head CT 12/27/21 11:19 IMPRESSION: 1. No evidence of intracranial hemorrhage or mass effect. 2. Mild small vessel changes. Moderate parenchymal volume loss. 3. Intracranial vascular calcification. 4. No acute intracranial findings. Laboratory Results WBC 6.2 10^3/uL (4.0-10.0) 12/27/21 11:36 RBC 5.41 10^6/uL (4.1-5.3) H 12/27/21 11:36 Hgb 15.3 g/dL (11.7-16.6) 12/27/21 11:36 Hct 44.6 % (42.0-52.0) 12/27/21 11:36 MCV 82.4 fl (80-94) 12/27/21 11:36 MCH 28.3 pg (28.0-34.0) 12/27/21 11:36 MCHC 34.3 g/dL (30.0-36.0) 12/27/21 11:36 RDW 13.7 % (12.1-15.1) 12/27/21 11:36 Plt Count 174 10^3/cmm (130-400) 12/27/21 11:36 MPV 11.9 fL (7.4-10.4) H 12/27/21 11:36 Neut % (Auto) 51.4 % 12/27/21 11:36 Lymph % (Auto) 35.5 % 12/27/21 11:36 [place] % (Auto) 8.7 % 12/27/21 11:36 Eos % (Auto) 2.9 % 12/27/21 11:36 Baso % (Auto) 1.3 % 12/27/21 11:36 Neut # (Auto) 3.19 10^3/uL (1.8-7.7) 12/27/21 11:36 Lymph # (Auto) 2.2 10^3/uL (0.8-4.8) 12/27/21 11:36 [place] # (Auto) 0.5 10^3/uL (0.2-0.9) 12/27/21 11:36 Eos # (Auto) 0.2 10^3/uL (0.0-0.8) 12/27/21 11:36 Baso # (Auto) 0.1 10^3/uL (0.0-0.1) 12/27/21 11:36 Nucleated RBC % (auto) 0 % 12/27/21 11:36 Nucleated RBCs # 0.0 /100WBC 12/27/21 11:36 Sodium 139 mmol/L (136-145) 12/27/21 11:36 Potassium 4.2 mmol/L (3.5-5.1) 12/27/21 11:36 Chloride 101 mmol/L (98-107) 12/27/21 11:36 Carbon Dioxide 23 mmol/L (22-29) 12/27/21 11:36 Anion Gap 19.2 (5-19) H 12/27/21 11:36 BUN 15 mg/dL (8-23) 12/27/21 11:36 Creatinine 0.6 mg/dL (0.7-1.2) L 12/27/21 11:36 GFR Calculation 135.2 mL/min (90-130) H 12/27/21 11:36 Glucose 146 mg/dL (65-115) H 12/27/21 11:36 Calculated Osmolality 291 mOsm/kg (285-295) 12/27/21 11:36 Calcium 9.0 mg/dL (8.5-10.5) 12/27/21 11:36 Total Bilirubin 0.7 mg/dL (0.15-1.2) 12/27/21 11:36 AST 11 U/L (0-40) 12/27/21 11:36 ALT 13 U/L (0-41) 12/27/21 11:36 Alkaline Phosphatase 69 IU/L (40-130) 12/27/21 11:36 Troponin T Baseline 14 ng/L (0-15) 12/27/21 11:36 Troponin T 120 Minute 12.17 ng/L (0-15) 12/27/21 13:27 Total Protein 7.1 g/dL (6.6-8.7) 12/27/21 11:36 Albumin 4.4 g/dL (3.5-5.2) 12/27/21 11:36 Globulin 2.7 g/dL (1.3-4.6) 12/27/21 11:36 Urine Color Yellow (Yellow) 12/27/21 13:50 Urine Appearance Clear (CLEAR) 12/27/21 13:50 Urine pH 7 (5-7) 12/27/21 13:50 Ur Specific [place] 1.005 (1.005-1.030) 12/27/21 13:50 Urine Protein Neg (Negative) 12/27/21 13:50 Urine Glucose (UA) 2+ (Normal) H 12/27/21 13:50 Urine Ketones Negative (Negative) 12/27/21 13:50 Urine Blood Neg (Negative) 12/27/21 13:50 Urine Nitrate Negative (Negative) 12/27/21 13:50 Urine Bilirubin Neg (Negative) 12/27/21 13:50 Urine Urobilinogen Norm mg/dL (Negative) 12/27/21 13:50 Ur Leukocyte Esterase Negative (Negative) 12/27/21 13:50 Discharge Plan Discharge Clinical Impression: Vertigo, Nausea & vomiting Condition: Stable Prescriptions: New meclizine 25 mg tablet 25 mg PO QID PRN (Reason: vertigo) Qty: 30 0RF ondansetron 4 mg tablet,disintegrating 4 mg PO Q8H PRN (Reason: nausea and vomiting) Qty: 20 0RF prednisone 20 mg tablet 20 mg PO DAILY 3 Days Qty: 3 0RF No Action allopurinol 100 mg tablet 100 mg PO DAILY PRN (Reason: gout) 0RF nitroglycerin [Nitrostat] 0.4 mg tablet, sublingual 0.4 mg SUBLINGUAL Q5M PRN (Reason: chest pain) 90 Days Qty: 25 3RF Rx Instructions: do not exceed 3 doses per episode Ozempic 1 mg/dose (4 mg/3 mL) pen injector 1 mg SUBCUT Q7D 0RF Rx Instructions: on saturday multivitamin Tablet 1 tab PO DAILY 0RF Humulin R U-500 (Conc) Insulin 500 unit/mL solution See Rx Instructions .ROUTE .COMPLEX 0RF Rx Instructions: 90 units in the am and 50 units at bedtime Farxiga 10 mg tablet 10 mg PO QAM 0RF furosemide 40 mg tablet 40 mg PO QAM 0RF clopidogrel 75 mg tablet 75 mg PO QAM 0RF spironolactone 25 mg tablet 25 mg PO QAM 0RF simvastatin 40 mg tablet 40 mg PO QAM 0RF losartan 100 mg tablet 100 mg PO QAM 0RF metoprolol tartrate 25 mg tablet 25 mg PO QAM 0RF Xarelto 15 mg tablet 15 mg PO QAM 0RF Rx Instructions: must administer with evening meal Discharge Orders: Discharge ED (Routine); Ordered 12/27/21 Ordered By: Sai Aponte Referrals: Nam Mazariegos MD [Primary Care Provider] - 1-3 days Discharge Diet: Advance as tolerated Discharge Activity: Increase activity as tolerated Patient Instructions: Vertigo (ED), Acute Nausea and Vomiting (ED), Benign Paroxysmal Positional Vertigo (ED) Activity Restrictions/Additional Instructions: Follow-up with your primary care doctor in 2 to 3 days, take medications provided, return the interim if any of your symptoms persist or worse. Coding Level of Care Code ED Cage Maker Machine for Rupa Fwd Exam Comprehensive
--- NOTE | 2021-12-27 11:19 | XR_ITS ---
WS: [id number] Portable AP upright chest, 12/27/2021 Clinical Data: dizziness Comparison: Portable chest, 07/04/2017. Findings: No nodules, masses or effusions are seen. The heart is slightly enlarged. The pulmonary vas cularity is not increased. No pneumonia or pneumothorax is seen. The aortic arch and descending thora cic aorta show calcification and tortuosity. Monitor leads are on the chest wall. XR/XR chest 1V portable [id number] Impression: Cardiomegaly and atherosclerosis.
--- NOTE | 2021-12-27 11:19 | CT_ITS ---
WS: [id number] CT HEAD TECHNIQUE: Noncontrast CT of the head obtained from the skullbase to the vertex. CLINICAL INFORMATION: dizziness COMPARISON: CT February 2017 DLP: 1030.[address] scans at [facility] use at least one of these dose optimization techniques: automated e xposure control; mA and/or kV adjustment per patient size (includes targeted exams where dose is matc hed to clinical indication); or iterative reconstruction. FINDINGS: No evidence of intracranial hemorrhage or mass effect. Ventricular system and basal cisterns are collazo nt. Mild small vessel changes with moderate parenchymal volume loss. No extra-axial fluid collections . No evidence of mass or mass effect. Incidental cavum septum pellucidum and vergae. Paranasal sinuses and mastoid air cells are well aerated. .Normal visualized soft tissues. CT/CT head wo con* [id number] IMPRESSION: 1. No evidence of intracranial hemorrhage or mass effect. 2. Mild small vessel changes. Moderate parenchymal volume loss. 3. Intracranial vascular calcification. 4. No acute intracranial findings.
--- NOTE | 2021-12-27 11:22 | ECG_ITS ---
[facility] Test Date: 2021-12-27 Pat Name: Adrian Hernandez Department: Room: Gender: Male Director Of Quality: : 1955 Requested By: Sai Aponte Order Number: [id number] Taurus MD: Violeta Vance M.D. Measurements Intervals [place] Rate: 62 P: [place]: QRS: 63 QRSD: 89 T: 56 QT: 411 QTc: 419 Interpretive Statements ATRIAL FIBRILLATION LOW QRS VOLTAGE IN PRECORDIAL LEADS [QRS DEFLECTION < 1.0 mV IN CHEST LEADS] NONSPECIFIC T-WAVE ABNORMALITY Compared to ECG 07/04/2017 21:32:29 Low QRS voltage now present T-wave abnormality now present Electronically Signed On 12-27-2021 20:19:21 CDT by Violeta Vance M.D. [id number]
[2021-12-27 11:42] LABS: Basophils # 0.1 10^3/uL (0.0-0.1); Basophils % 1.3 %; Eosinophils # 0.2 10^3/uL (0.0-0.8); Eosinophils % 2.9 %; Hematocrit 44.6 % (42.0-52.0); Hemoglobin 15.3 g/dL (11.7-16.6); Lymphocytes # 2.2 10^3/uL (0.8-4.8); Lymphocytes % 35.5 %; Mean Corpuscular HGB Conc 34.3 g/dL (30.0-36.0); Mean Corpuscular Hemoglobin 28.3 pg (28.0-34.0); Mean Corpuscular Volume 82.4 fl (80-94); Mean Platelet Volume 11.9 fL (7.4-10.4); Monocytes # 0.5 10^3/uL (0.2-0.9); Monocytes % 8.7 %; Neutrophils # 3.19 10^3/uL (1.8-7.7); Neutrophils % 51.4 %; Nucleated Red Blood Cells % 0 %; Platelet Count 174 10^3/cmm (130-400); Red Blood Count 5.41 10^6/uL (4.1-5.3); Red Cell Distribution Width 13.7 % (12.1-15.1); White Blood Count 6.2 10^3/uL (4.0-10.0)
[2021-12-27 11:44] VITALS: BP 143/74; PULSE 60; RESP 18; TEMP 36.4; O2SAT 100; BMI 42.5
[2021-12-27] MEDS: sodium chloride 0.9% 1,000 ML 999 ML IV (11:54)
[2021-12-27] MEDS: ondansetron 2 mg/ML SDV 2 mL 4 MG IVP (11:54)
[2021-12-27] MEDS: meclizine 25 mg tablet 50 MG PO (11:54)
[2021-12-27] MEDS: dexamethasone 10 mg/mL INJ IVP (11:54)
[2021-12-27 12:05] LABS: Troponin(5th) Baseline 14 ng/L (0-15)
[2021-12-27 12:07] LABS: Alanine Aminotransferase 13 U/L (0-41); Albumin Level 4.4 g/dL (3.5-5.2); Alkaline Phosphatase 69 IU/L (40-130); Anion Gap 19.2 (5-19); Aspartate Amino Transferase 11 U/L (0-40); Blood Urea Nitrogen 15 mg/dL (8-23); Carbon Dioxide 23 mmol/L (22-29); Chloride 101 mmol/L (98-107); Globulin 2.7 g/dL (1.3-4.6); Glomerular Filtration Rate 135.2 mL/min (90-130); Glucose 146 mg/dL (65-115); Osmolality Calculated 291 mOsm/kg (285-295); Potassium 4.2 mmol/L (3.5-5.1); Sodium 139 mmol/L (136-145); Total Bilirubin 0.7 mg/dL (0.15-1.2); Total Protein 7.1 g/dL (6.6-8.7)
[2021-12-27] MEDS: LORazepam 2 mg/mL INJ 1 mL 1 MG IVP (12:35)
--- NOTE | 2021-12-27 13:22 | ECG_ITS ---
[facility] Test Date: 2021-12-27 Pat Name: Adrian Hernandez Department: Room: Gender: Male Forming Roll Operator: : 1955 Requested By: Sai Aponte Order Number: [id number] Taurus MD: Violeta Vance M.D. Measurements Intervals [place] Rate: 57 P: [place]: QRS: 66 QRSD: 106 T: 46 QT: 424 QTc: 415 Interpretive Statements ATRIAL FIBRILLATION WITH SLOW VENTRICULAR RESPONSE LOW QRS VOLTAGE IN PRECORDIAL LEADS [QRS DEFLECTION < 1.0 mV IN CHEST LEADS] SEPTAL MYOCARDIAL INFARCTION , PROBABLY OLD [40+ ms Q WAVE IN V1/V2] Compared to ECG 12/27/2021 11:55:14 Myocardial infarct finding now present T-wave abnormality no longer present Electronically Signed On 12-27-2021 20:27:23 CDT by Violeta Vance M.D. [id number]
[2021-12-27 13:55] LABS: Add Urine Microscopic? NO; Charge for UA Resulting for Rev
[2021-12-27 13:59] LABS: Troponin 5 2HR 12.17 ng/L (0-15)
[2021-12-27 13:59] LABS: Bilirubin Urine Neg (Negative); Blood Urine Neg (Negative); Glucose Urine UA 2+ (Normal); Ketones Urine Negative (Negative); Leukocyte Esterase Urine Negative (Negative); Nitrate Urine Negative (Negative); Protein Urine Neg (Negative); Specific Gravity, Urine 1.005 (1.005-1.030); Urine Appearance Clear (CLEAR); Urine Color Yellow (Yellow); Urobilinogen Urine Norm (Negative); pH Urine 7 (5-7)
[2021-12-27 14:29] LABS: Troponin 5 2HR Delta -1.3 ABS# (0-10)
[2021-12-27 14:40] VITALS: BP 118/73; PULSE 77; RESP 20; O2SAT 97
== END 2021-12-27 14:42 | disposition home or self-care (01) ==
PROVIDERS: Emergency Provider Emergency Medicine; PCP Family Medicine
DX: R42 Dizziness and giddiness (principal); R11.2 Nausea with vomiting, unspecified; I51.7 Cardiomegaly; I48.91 Unspecified atrial fibrillation; I12.9 Hypertensive chronic kidney disease with stage 1 through stage 4 chronic kidney disease, or unspecified chronic kidney disease; E11.22 Type 2 diabetes mellitus with diabetic chronic kidney disease; N18.9 Chronic kidney disease, unspecified; E66.01 Morbid (severe) obesity due to excess calories; Z68.41 Body mass index [BMI] 40.0-44.9, adult
CPT/HCPCS: 36415; 70450; 71045; 80053; 81003; 84484; 85025; 93005; 96361; 96374; 96375; 99285; J1100; J2060; J2405; J7030; J8597

== ENCOUNTER → 2022-03-28 14:54 | Outpatient (BNVA) | payer MEDICARE, SELFPAY | PROVIDERS: PCP Family Medicine; Visit Provider Internal Medicine Cardiovascular Disease | DX: I25.10 Atherosclerotic heart disease of native coronary artery without angina pectoris (principal); I48.11 Longstanding persistent atrial fibrillation; Z79.01 Long term (current) use of anticoagulants; I13.10 Hypertensive heart and chronic kidney disease without heart failure, with stage 1 through stage 4 chronic kidney disease, or unspecified chronic kidney disease; E11.22 Type 2 diabetes mellitus with diabetic chronic kidney disease; N18.9 Chronic kidney disease, unspecified; Z79.4 Long term (current) use of insulin; Z87.891 Personal history of nicotine dependence | CPT/HCPCS: 99214 ==

== ENCOUNTER → 2022-07-18 12:12 | Outpatient (BNVA) | payer MEDICARE, SELFPAY | PROVIDERS: PCP Family Medicine; Visit Provider Family Medicine | DX: N40.0 Benign prostatic hyperplasia without lower urinary tract symptoms (principal) | CPT/HCPCS: 84153 ==

== ENCOUNTER 2022-08-18 09:56 | Emergency (ER) | payer MEDICARE, SELFPAY ==
[2022-08-18 10:07] VITALS: BP 155/85; PULSE 87; RESP 14; O2SAT 96
--- NOTE | 2022-08-18 10:10 | XRR_ITS ---
PROCEDURE INFORMATION: Exam: XR Right Shoulder Exam date and time: 08/18/2022 10:18 AM Age: 67 years old Clinical indication: Injury or trauma; Fall; Blunt trauma (contusions or hematomas); Shoulder; Right; Additional info: Fall with pain TECHNIQUE: Imaging protocol: Radiologic exam of the Right shoulder. Views: 2 or more views. AP INT/ EXT ROTATION, SCAPULAR Y COMPARISON: CR XR chest 1V portable [id number] 12/27/2021 11:33 AM FINDINGS: Bones/joints: There is normal alignment at the glenohumeral joint. Mild glenohumeral joint space narrowing is seen with small osteophytes, suggestive of osteoarthritic change. There are no fractures or dislocations. Moderate acromioclavicular degenerative changes. The visualized scapula and clavicle are unremarkable. There is osteopenia. Soft tissues: There are no radiopaque foreign bodies or soft tissue swelling. Notes: If there is further concern, follow-up radiographs or MRI of the shoulder may be performed for complete assessment. XR/XR shoulder RT min 2V* [id number] IMPRESSION: No fractures or dislocations of right shoulder. Degenerative changes, as noted above.
--- NOTE | 2022-08-18 10:10 | XRR_ITS ---
PROCEDURE INFORMATION: Exam: XR Right Humerus Exam date and time: 08/18/2022 10:18 AM Age: 67 years old Clinical indication: Injury or trauma; Fall; Blunt trauma (contusions or hematomas); Arm, upper; Right; Additional info: Fall with pain and swelling TECHNIQUE: Imaging protocol: Radiologic exam of the Right humerus. Views: 2 or more views. AP and Lateral COMPARISON: CR XR chest 1V portable [id number] 12/27/2021 11:33 AM FINDINGS: Bones/joints: The limited right humeral radiographs show no definite fracture deformities. Mild glenohumeral joint degenerative changes are seen. Degenerative changes of the elbow are seen with medium-sized degenerative osteophytes. Elbow joint space narrowing is seen, suggestive of osteoarthritic change. Soft tissues: Mild elbow region soft tissue swelling. No definite elbow joint effusion. Notes: Followup radiographs may be obtained for complete assessment. XR/[place] [id number] IMPRESSION: No definite fractures seen on the limited humerus radiographs. Degenerative changes, as noted above.
[2022-08-18 10:13] VITALS: BP 155/85; PULSE 108; RESP 14; O2SAT 98
--- NOTE | 2022-08-18 10:18 | W.ED.EXTPRO ---
Documented by User: MICHELLE Redd 08/18/22 13:34 HPI - Extremity Problem General: Chief complaint: Extremity Injury, Upper Stated complaint: fall, arm pain Time Seen by Provider: 08/18/22 09:57 History of Present Illness: Patient is in today for right arm pain. 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 He reports that he hit the ground on his right shoulder and arm. He thought yesterday it was just banged up but it started bruising today and so he thought he should come in. He reports pain 9 out of 10 on a 0-to-10 scale in his right arm. He denies that he hit his head in the fall. He denies loss of consciousness. He denies injury anywhere else on his body. Associated symptoms: Deny chest pain or fever(s) Review of Systems Const: Denies: fever(s) or chills Card: Denies: chest pain, palpitations or irregular heart rhythm Resp: Denies: dyspnea, productive cough or non-productive cough GI: Denies: abdominal pain, nausea or vomiting : Denies: flank pain, difficulty urinating or dysuria Musc: Reports: extremity pain, extremity swelling and joint pain Neuro: Denies: headache(s), numbness in extremities, weakness in extremities, sensory changes, lack of coordination or difficulty walking [facility] ED PFSH: Medical History (Updated 08/18/22 @ 12:07 by MICHELLE Redd) Anticoagulant long-term use Atrial fibrillation CKD (chronic kidney disease) Diabetes Diastolic dysfunction HTN (hypertension) Morbid obesity ARELY on CPAP Surgical History S/P gastric bypass S/P PTCA (percutaneous transluminal coronary angioplasty) Family History Father Diabetes Social History Smoking and tobacco status: former smoker Household members: spouse Marital status: Physical Exam Const: COMMON NORMALS: patient oriented x3 and alert OTHER: Patient is in obvious pain however pleasant and cooperative Neck/C-Spine: COMMON NORMALS: no JVD Resp: COMMON NORMALS: normal respiratory effort, No use of accessory muscles and clear to auscultation bilaterally AUSCULTATION: clear to auscultation bilaterally Cardio: COMMON NORMALS: no JVD, regular rate, regular rhythm, S1 normal heart sound present, S2 normal heart sound present and No murmurs present (Cardio) RATE: regular rate RHYTHM: regular rhythm HEART SOUNDS: S1 normal heart sound present and S2 normal heart sound present Extremity: NARRATIVE EXTREMITY EXAM: Right shoulder and upper arm tender to palpation. No obvious bony deformity. There is some bruising just above the medial AC s. range of motion limited by pain. Distal fingers CSM intact. Patient reports he is not able to abduct the arm laterally or frontally. There is tenderness to palpation to the anterior shoulder. Neuro: COMMON NORMALS: patient oriented x3 SENSORIUM/ORIENTATION: Yes alert Course Vital Signs: Vital signs: Vital Signs Pulse Rate 73 08/18/22 12:34 Respiratory Rate 14 08/18/22 12:34 Blood Pressure 129/81 08/18/22 12:34 Pulse Oximetry 96 08/18/22 12:34 Oxygen Delivery Me thod 08/18/22 10:13 MDM - Extremity (Nontraumatic) Medical Decision Making Consider contusion, strain, fracture, traumatic rotator cuff injury of the right shoulder and arm. Pain medication is administered X-ray shoulder, humerus, and elbow negative for acute osseous deformity Sent referral to case management to set patient up for an outpatient MRI of the shoulder to evaluate for traumatic rotator cuff injury. Advised patient of conservative treatment at home. Consulted with Dr. Levy for outpatient pain control. [place] 5 mg / 325 mg 1 p.o. every 6 hours as needed pain #20 no refills provided by Dr. Cruz. Follow-up with primary care provider. Return to ER as needed for new or worsening symptoms Lab Data Radiology Impressions Humerus X-Ray 08/18/22 10:10 IMPRESSION: No definite fractures seen on the limited humerus radiographs. Degenerative changes, as noted above. Shoulder X-Ray 08/18/22 10:10 IMPRESSION: No fractures or dislocations of right shoulder. Degenerative changes, as noted above. Elbow X-Ray 08/18/22 10:55 IMPRESSION: No acute findings. Bone spur posterior olecranon Discharge Plan Discharge Patient Disposition: Home Clinical Impression: Right shoulder injury, Contusion of arm, right Condition: Stable Prescriptions: No Action aspirin [Adult Aspirin Regimen] 81 mg tablet,delayed release (DR/EC) 81 mg PO DAILY Qty: 90 3RF allopurinol 100 mg tablet 100 mg PO DAILY PRN (Reason: gout) nitroglycerin [Nitrostat] 0.4 mg tablet, sublingual 0.4 mg SUBLINGUAL Q5M PRN (Reason: chest pain) 90 Days Qty: 25 3RF Rx Instructions: do not exceed 3 doses per episode Farxiga 10 mg tablet 10 mg PO QAM 30 Days Qty: 90 1RF Ozempic 1 mg/dose (4 mg/3 mL) pen injector 0.5 mg SUBCUT ONCE Qty: 3 5RF Rx Instructions: 0.5mg sub-q weekly x 4 weeks, then increase to 1mg weekly. Humulin R U-500 (Conc) Insulin 500 unit/mL solution See Rx Instructions .ROUTE .COMPLEX Qty: 20 6RF Rx Instructions: 90 units in the am, 20 units at noon and 90 units at bedtime furosemide 40 mg tablet 40 mg PO QAM Qty: 90 1RF miscellaneous medical supply Misc See Rx Instructions miscellaneous .COMPLEX Qty: 1 4RF Rx Instructions: Please issue CPAP supplies including mask, tubing, filters, water reservoirs, and any other necessary supplies. Xarelto 20 mg tablet 20 mg PO DAILY Qty: 90 3RF Rx Instructions: must administer with evening meal multivitamin Tablet 1 tab PO DAILY spironolactone 25 mg tablet 25 mg PO QAM simvastatin 40 mg tablet 40 mg PO QAM losartan 100 mg tablet 100 mg PO QAM metoprolol tartrate 25 mg tablet 25 mg PO QAM ondansetron 4 mg tablet,disintegrating 4 mg PO Q8H PRN (Reason: nausea and vomiting) Qty: 20 0RF meclizine 25 mg tablet 25 mg PO QID PRN (Reason: vertigo) Qty: 30 0RF Discharge Orders: Discharge ED (Routine); Ordered 08/18/22 Ordered By: Aaliyah Miranda Referrals: Kermit Fields DO [Primary Care Provider] - Discharge Diet: Usual diet Discharge Activity: Increase activity as tolerated Patient Instructions: Contusion in Adults (ED), Shoulder Pain (ED), Opioid Safety, Pain Management Activity Restrictions/Additional Instructions: Order was sent to case management to arrange an MRI outpatient for your right shoulder as I suspect that you have a traumatic injury to your rotator cuff. I recommend conservative treatment at home including ice, rest, elevation of the extremity. Use pain medication hydrocodone as prescribed as needed. Do not drive after taking this medication. Do not take any other medication that makes you sleepy with this medication. Follow-up with your primary care provider. Return to the ER as needed for new or worsening symptoms Coding Level of Care Code ED Dispatcher Automobile Rental for Chg Fwd Exam Expanded Problem Focused Documented by User: Doroteo Levy DO 08/18/22 14:06 HPI - Extremity Problem General: Chief complaint: Extremity Injury, Upper Stated complaint: fall, arm pain Time Seen by Provider: 08/18/22 09:57 [facility] ED PFSH: Medical History (Updated 08/18/22 @ 12:07 by MICHELLE Redd) Anticoagulant long-term use Atrial fibrillation CKD (chronic kidney disease) Diabetes Diastolic dysfunction HTN (hypertension) Morbid obesity ARELY on CPAP Surgical History S/P gastric bypass S/P PTCA (percutaneous transluminal coronary angioplasty) Family History Father Diabetes Social History Smoking and tobacco status: former smoker Household members: spouse Marital status: Course Vital Signs: Vital signs: Vital Signs Pulse Rate 73 08/18/22 12:34 Respiratory Rate 14 08/18/22 12:34 Blood Pressure 129/81 08/18/22 12:34 Pulse Oximetry 96 08/18/22 12:34 Oxygen Delivery Me thod 08/18/22 10:13 MDM - Extremity (Nontraumatic) Medical Decision Making Consider contusion, strain, fracture, traumatic rotator cuff injury of the right shoulder and arm. Pain medication is administered X-ray shoulder, humerus, and elbow negative for acute osseous deformity Sent referral to case management to set patient up for an outpatient MRI of the shoulder to evaluate for traumatic rotator cuff injury. Advised patient of conservative treatment at home. Consulted with Dr. Levy for outpatient pain control. [place] 5 mg / 325 mg 1 p.o. every 6 hours as needed pain #20 no refills provided by Dr. Cruz. Follow-up with primary care provider. Return to ER as needed for new or worsening symptoms Chart reviewed and patient discussed with midlevel. Agree with assessment and plan. Lab Data Radiology Impressions Humerus X-Ray 08/18/22 10:10 IMPRESSION: No definite fractures seen on the limited humerus radiographs. Degenerative changes, as noted above. Shoulder X-Ray 08/18/22 10:10 IMPRESSION: No fractures or dislocations of right shoulder. Degenerative changes, as noted above. Elbow X-Ray 08/18/22 10:55 IMPRESSION: No acute findings. Bone spur posterior olecranon Discharge Plan Discharge Patient Disposition: Home Clinical Impression: Right shoulder injury, Contusion of arm, right Condition: Stable Prescriptions: No Action aspirin [Adult Aspirin Regimen] 81 mg tablet,delayed release (DR/EC) 81 mg PO DAILY Qty: 90 3RF allopurinol 100 mg tablet 100 mg PO DAILY PRN (Reason: gout) nitroglycerin [Nitrostat] 0.4 mg tablet, sublingual 0.4 mg SUBLINGUAL Q5M PRN (Reason: chest pain) 90 Days Qty: 25 3RF Rx Instructions: do not exceed 3 doses per episode Farxiga 10 mg tablet 10 mg PO QAM 30 Days Qty: 90 1RF Ozempic 1 mg/dose (4 mg/3 mL) pen injector 0.5 mg SUBCUT ONCE Qty: 3 5RF Rx Instructions: 0.5mg sub-q weekly x 4 weeks, then increase to 1mg weekly. Humulin R U-500 (Conc) Insulin 500 unit/mL solution See Rx Instructions .ROUTE .COMPLEX Qty: 20 6RF Rx Instructions: 90 units in the am, 20 units at noon and 90 units at bedtime furosemide 40 mg tablet 40 mg PO QAM Qty: 90 1RF miscellaneous medical supply Misc See Rx Instructions miscellaneous .COMPLEX Qty: 1 4RF Rx Instructions: Please issue CPAP supplies including mask, tubing, filters, water reservoirs, and any other necessary supplies. Xarelto 20 mg tablet 20 mg PO DAILY Qty: 90 3RF Rx Instructions: must administer with evening meal multivitamin Tablet 1 tab PO DAILY spironolactone 25 mg tablet 25 mg PO QAM simvastatin 40 mg tablet 40 mg PO QAM losartan 100 mg tablet 100 mg PO QAM metoprolol tartrate 25 mg tablet 25 mg PO QAM ondansetron 4 mg tablet,disintegrating 4 mg PO Q8H PRN (Reason: nausea and vomiting) Qty: 20 0RF meclizine 25 mg tablet 25 mg PO QID PRN (Reason: vertigo) Qty: 30 0RF Discharge Orders: Discharge ED (Routine); Ordered 08/18/22 Ordered By: Aaliyah Miranda Referrals: Kermit Fields DO [Primary Care Provider] - Discharge Diet: Usual diet Discharge Activity: Increase activity as tolerated Patient Instructions: Contusion in Adults (ED), Shoulder Pain (ED), Opioid Safety, Pain Management Activity Restrictions/Additional Instructions: Order was sent to case management to arrange an MRI outpatient for your right shoulder as I suspect that you have a traumatic injury to your rotator cuff. I recommend conservative treatment at home including ice, rest, elevation of the extremity. Use pain medication hydrocodone as prescribed as needed. Do not drive after taking this medication. Do not take any other medication that makes you sleepy with this medication. Follow-up with your primary care provider. Return to the ER as needed for new or worsening symptoms Coding Level of Care Code ED Dispatcher Automobile Rental for Rupa Monique Exam Expanded Problem Focused
[2022-08-18 10:26] VITALS: RESP 16; O2SAT 98
[2022-08-18] MEDS: morphine 4 mg/mL SDV 1 mL IM (10:26)
[2022-08-18] MEDS: ondansetron 4 MG Tablet PO (10:26)
--- NOTE | 2022-08-18 10:55 | XRR_ITS ---
PROCEDURE INFORMATION: Exam: XR Right Elbow Exam date and time: 08/18/2022 10:58 AM Age: 67 years old Clinical indication: Injury or trauma; Fall; Blunt trauma (contusions or hematomas); Elbow; Right; Additional info: Pain and swelling TECHNIQUE: Imaging protocol: Radiologic exam of the Right elbow. Views: 1 or 2 views. COMPARISON: CR (CHEST, ) 08/18/2022 10:18 AM FINDINGS: Bones/joints: Negative for acute bony abnormality.. A bone spurs present on the inferior aspect of the olecranon Soft tissues: Unremarkable XR/XR elbow RT 2V [id number] IMPRESSION: No acute findings. Bone spur posterior olecranon
[2022-08-18 11:08] VITALS: RESP 14; O2SAT 98
[2022-08-18] MEDS: oxyCODONE-APAP 5-325 mg Tablet 1 TAB PO (11:08)
[2022-08-18 12:34] VITALS: BP 129/81; PULSE 73; RESP 14; O2SAT 96
--- NOTE | 2022-08-22 10:18 | DCPLANNER ---
Addendum entered by Tatiana Jones 08/31/22 14:23: Patient had an out patient MRI scheduled - patient did attend appointment. Addendum entered by Tatiana Jones 08/23/22 12:40: Patient has an outpatient MRI scheduled for Sunday, August 28, 2022 at 11:00. Centralized scheduling will call patient with appointment information. Original Note: human resources project manager had message to schedule an outpatient MRI for patient. human resources project manager faxed signed order to centralized scheduling, who will call patient with appointment information.
== END 2022-08-18 12:36 | disposition home or self-care (01) ==
PROVIDERS: Emergency Provider Nurse Practitioner Family; PCP Family Medicine
DX: S40.021A Contusion of right upper arm, initial encounter (principal); S46.001A Unspecified injury of muscle(s) and tendon(s) of the rotator cuff of right shoulder, initial encounter; Z79.82 Long term (current) use of aspirin; Z79.4 Long term (current) use of insulin; E11.22 Type 2 diabetes mellitus with diabetic chronic kidney disease; I12.9 Hypertensive chronic kidney disease with stage 1 through stage 4 chronic kidney disease, or unspecified chronic kidney disease; N18.9 Chronic kidney disease, unspecified; Z87.891 Personal history of nicotine dependence; W19.XXXA Unspecified fall, initial encounter
CPT/HCPCS: 73030; 73060; 73070; 96372; 99284; J2270; Q0162

== ENCOUNTER 2022-09-12 09:08 | Outpatient (CLI) | payer MEDICARE, SELFPAY ==
[2022-09-12 09:40] LABS: Basophils # 0.1 10^3/uL (0.0-0.1); Basophils % 0.9 %; Eosinophils # 0.2 10^3/uL (0.0-0.8); Eosinophils % 2.3 %; Hematocrit 45.9 % (42.0-52.0); Hemoglobin 15.5 g/dL (11.7-16.6); Lymphocytes # 1.8 10^3/uL (0.8-4.8); Mean Corpuscular HGB Conc 33.8 g/dL (30.0-36.0); Mean Corpuscular Hemoglobin 28.3 pg (28.0-34.0); Mean Corpuscular Volume 83.8 fl (80-94); Mean Platelet Volume 12.4 fL (7.4-10.4); Monocytes # 0.5 10^3/uL (0.2-0.9); Monocytes % 6.3 %; Neutrophils % 66.1 %; Nucleated Red Blood Cells % 0 %; Platelet Count 157 10^3/cmm (130-400); Red Blood Count 5.48 10^6/uL (4.1-5.3); Red Cell Distribution Width 13.1 % (12.1-15.1); White Blood Count 7.4 10^3/uL (4.0-10.0)
[2022-09-12 09:59] LABS: Troponin T (5th) Once 15 ng/L (0-15)
[2022-09-12 10:01] LABS: Estmated Average Glucose 197; Hemoglobin A1C 8.5 % (4.0-6.0)
[2022-09-12 10:08] LABS: Alanine Aminotransferase 18 U/L (0-41); Albumin Level 4.2 g/dL (3.5-5.2); Alkaline Phosphatase 69 U/L (40-130); Anion Gap 14.8 (5-19); Aspartate Amino Transferase 22 U/L (0-40); Blood Urea Nitrogen 22 mg/dL (8-23); Calcium 9.3 mg/dL (8.5-10.5); Carbon Dioxide 24 mmol/L (22-29); Chloride 100 mmol/L (98-107); Chol HDL Ratio 2.87 mg/dL (1.0-5.00); Cholesterol 112 mg/dL (0-200); Globulin 2.9 g/dL (1.3-4.6); Glomerular Filtration Rate 112.8 mL/min (90-130); Glucose 328 mg/dL (65-115); HDL Cholesterol 39 mg/dL (60-100); LDL Cholesterol Calculated 41 mg/dL (50-129); LDL HDL Ratio 1.05 RATIO (0.00-3.22); NT Pro B Type Natriuretic Pept 489 pg/mL (0-125); Osmolality Calculated 296 mOsm/kg (285-295); Potassium 3.8 mmol/L (3.5-5.1); Sodium 135 mmol/L (136-145); Total Bilirubin 0.7 mg/dL (0.15-1.2); Total Protein 7.1 g/dL (6.6-8.7); Triglycerides 162 mg/dL (0-150)
== END 2022-09-12 09:09 | disposition home or self-care (01) ==
LOC: RAD 09:13 → LAB 09:29
PROVIDERS: PCP Family Medicine; Visit Provider Family Medicine
DX: I48.11 Longstanding persistent atrial fibrillation (principal); R07.9 Chest pain, unspecified; Z98.61 Coronary angioplasty status; E11.9 Type 2 diabetes mellitus without complications
CPT/HCPCS: 36415; 80053; 80061; 83036; 83880; 84484; 85025

== ENCOUNTER → 2022-09-21 08:55 | Outpatient (BNVA) | payer MEDICARE, SELFPAY | PROVIDERS: PCP Family Medicine; Visit Provider Internal Medicine Cardiovascular Disease | DX: I20.0 Unstable angina (principal); Z98.61 Coronary angioplasty status; E66.01 Morbid (severe) obesity due to excess calories; Z68.41 Body mass index [BMI] 40.0-44.9, adult; I48.11 Longstanding persistent atrial fibrillation; Z79.01 Long term (current) use of anticoagulants; Z98.84 Bariatric surgery status; I12.9 Hypertensive chronic kidney disease with stage 1 through stage 4 chronic kidney disease, or unspecified chronic kidney disease; E11.22 Type 2 diabetes mellitus with diabetic chronic kidney disease; E11.65 Type 2 diabetes mellitus with hyperglycemia; N18.9 Chronic kidney disease, unspecified; Z87.891 Personal history of nicotine dependence; Z79.4 Long term (current) use of insulin | CPT/HCPCS: 99213 ==

== ENCOUNTER 2022-10-01 05:48 | Outpatient (CLI) | payer MEDICARE, SELFPAY ==
[2022-10-01] VITALS (14 sets, daily range): BP systolic 113–146; BP diastolic 62–90; PULSE 56–75; RESP 6–22; TEMP 36.7; O2SAT 93–99; BMI 40.9
--- NOTE | 2022-10-01 06:00 | XACV_ITS ---
Ht: 183 cm Wt: 137 kg BSA: 2.70 m2 Gender: Male : 1955 Any Known Allergies: No known allergies Exam Priority: Routine Indication(s): - Angina Procedure(s): Procedure Description: Diagnostic procedure Procedure Description: Left Heart Catheterization Procedure Description: Left ventriculography Procedure Description: Coronary Angiography Jules BRADLEY; Diagnostic Cath Status: Elective Diagnostic Findings * No significant disease noted in the Left Main, Left Anterior Descending, Right, or Circumflex coronary arteries. * Small sized diagonal artery has ostial 70% stenosis. * Coronary angiography shows left dominance. Conclusions 1. No significant disease noted in the Left Main, Left Anterior Descending, Right, or Circumflex coronary arteries. 2. Normal left ventricular systolic function. Ejection fraction of 50%. Recommendations * Aggressive risk factor modification. * Outpatient cardiology follow up in 4 weeks. Interventional RX Recommendation: medical therapy and/or counseling Diagnostic RX Recommendation: medical therapy and/or counseling Anticoagulation: Heparin Ventriculography Ejection Fraction: 50.0 % Pressures Phase:Rest AO : 113 / 76 ( 95 ) @ 7:14:00 AM 105 / 73 ( 89 ) @ 7:16:00 AM 130 / 65 ( 99 ) @ 7:23:00 AM 129 / 72 ( 95 ) @ 7:23:00 AM LV : 129 / 1 / 21 @ 7:22:00 AM 137 / 2 / 21 @ 7:22:00 AM 140 / -2 / 22 @ 7:23:00 AM Valves Phase:DefaultPhase AV : 9.0 @ 8:16:28 AM 9.0 @ 8:16:28 AM AV Mean Gradient: 20.0 @ 8:16:28 AM 20.0 @ 8:16:28 AM Clinical Evaluation EBL: 5mL-10mL Procedural Details Pre-Procedure Time Out. Identified patient by full name and date of as verbalized by the patient/guarantor. Does the consent match the physician's order: Yes. Accurate & Complete Informed Consent: Yes. Inpatient/Outpatient History & Physical on Chart: Yes. If H&P is completed, is and addenduem needed: No; If yes, is the addendum complete: N/A. Visualize and Verify Site with Patient/Guarantor: N/A. Relevant Radiology Images available: N/A. Pre-op teaching completed and patient verbalized understanding. The risks, benefits, and alternatives of sedation and/or procedure were discussed by physician. The patient agrees to continue. Procedure started. [facility] Clinical Fraility Score: 3: Managing Well. 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 Chest Pain Symptom Assessment: Typical Angina Symptoms. Cardiovascular Instability: No, stable. Correct patient, site and procedure confirmed by cath team. Current diagnosis: Chest Pain; Worsening Angina. PERRLA. Strong, equal hand sugar trucker bilaterally. Lungs clear x 5 lobes. IV Site on Arrival: 20 gauge in the right forearm. IV Fluids: 0.9% NaCl at KVO. 0 mL infused prior to receiver/laborer. Pre Procedural Pulses: bilateral radial was 3+. Pre Procedural Pulses: bilateral posterior tibial was 2+. Pre Procedural Pulses: bilateral dorsalis pedis was 2+. Oxygen started at 3liters/min via nasal canula. right groin was prepped with chloroprep then draped in the usual sterile fashion. right radial was prepped with chloroprep then draped in the usual sterile fashion. Physician notified. Baseline sample Acquired. HR: 60 BPM. Family updated by MD prior to the start of the procedure. Physician arrived. Physician scrubbed in. Current Diagnosis : Chest Pain. Equipment: 6F - Radial. Cardiac Cath Pack. ACIST Manifold Kit Model BT 2000. Heparinized Saline (2 units/mL), 1000 mL bag. Equipment: 5F - Femoral. Equipment: 6F - Femoral. Immediate Pre-Procedure Time Out. Correct Patient: Yes; Correct Procedure: Yes; Correct Site: Yes; Correct Patient Position: Yes; Correct Supplies: Yes; Dried Flammable Prep: Yes; Blood Products Available: N/A;. Lidocaine 1% infiltrated to the right radial. Arterial access obtained. A 5 nigerien TIG catheter in over wire. Multiple views taken of right coronary artery. Catheter redirected to the LCA. Multiple views taken of left coronary artery. Catheter removed over the exchange wire. A 5 nigerien Angled Pig catheter in over wire. EDP Sample taken: LV 129/1,21; HR: 65 BPM; SpO2: 96%. LV gram performed in HUTSON @ 10 mL/second for a total of 30 mL. Patient EF: Normal. EDP Sample taken: LV 137/2,21; HR: 71 BPM; SpO2: 97%. Pullback taken: LV 140/-3,22; AO 130/65(99); Mean: 20mmHg, Peak to Peak: 9mmHg, SEP: 8sec/min; HR: 70 BPM; SpO2: 97%. Catheter removed over the exchange wire. Physician review of films. Physician scrubbed out. A TR Band was successful obtaining hemostatsis at the Right Radial artery insertion site. TR band placed. Hemostasis obtained. Post Procedure: Pulses reassessed and unchanged. PERRLA. Strong, equal hand sugar trucker bilaterally. No VTE prophylaxis required. Medication waste: Fentanyl- 50 mcg, Heparin- 1000 units, Nitro- 49.8 mg. Total IV fluids: 25.2 mL. Fluoro: 2:09. Contrast type used: Omnipaque 300 mg/mL, 150 mL bottle. [id number]. Post-op diagnosis: Severe Significant Ostial Diagol stenosis; Small caliber vessel to be managed by Medication. Complications: None. Estimated blood loss: 5mL-10mL. Responsiveness - Normal response to verbal stimuli; alert and oriented, PERRLA. Airway - Unaffected, no intervention required; spontaneous ventilation. Circulation: W/N/L, pulses unchanged. Nausea/Vomiting: No. Procedure completed. Patient transferred by wheelchair to CPRU. Vital chart was stopped. Procedure started. Access Site Site: Right Radial artery Sheath Size: 5 Fr Hemostasis Method: TR Band Hemostasis Success: Successful Procedure Medications Start: 7:08 AM Stop: 7:08 AM Medication: Versed Amount: 1 mg Route: I.V. Start: 7:08 AM Stop: 7:08 AM Medication: Fentanyl Amount: 50 mcg Route: I.V. Start: 7:11 AM Stop: 7:11 AM Medication: Versed Amount: 1 mg Route: I.V. Start: 7:12 AM Stop: 7:12 AM Medication: Nitrogylcerin Amount: 200 mcg Route: I.A. Start: 7:13 AM Stop: 7:13 AM Medication: Heparin Amount: 5000 units Route: I.V. I, the attending physician, have reviewed and verified all procedure medications. Yes, all medications given per verbal order History/Risk Factors Hypertension: Yes Dyslipidemia: No Peripheral Arterial Disease (PAD): No Myocardial Infarction (RI): No Obesity: No Renal Disease: No Prior Interventions PCI: Yes CABG: No Valve Surgery: No Date of PCI: 06/21/2014 Report Signatures Finalized by Jayjay Smith MD on 10/07/2022 01:28 PM
[2022-10-01] MEDS: aspirin 325 mg Tablet PO (06:30)
[2022-10-01] MEDS: diphenhydrAMINE 50 mg Capsule PO (06:30)
--- NOTE | 2022-10-01 06:59 | P.HPUD_ITS ---
Surgery/Procedure H&P Update DATE OF PROCEDURE: October 01, 2022 DATE H&P PERFORMED: 09/21/22 H&P UPDATE INFORMATION: I have reviewed H&P completed within last 30 days, I have examined patient prior to procedure and No changes to prior documentation PREOP DIAGNOSIS: Worsening angina PRIMARY INDICATION FOR PROCEDURE: Worsening angina PLANNED PROCEDURE: Operation Date: 10/01/22 07:[address] [facility] w/wo 46914 R07.9 R07.9(Left) - Jayjay Smith MD Possible percutaneous coronary intervention PATIENT REASSESSED PRIOR TO SEDATION, WITH NO CHANGE NOTED: Yes PHYSICAL EXAM: alert, oriented x 3, clear to auscultation bilaterally and regular rate & rhythm AIRWAY EVAL/ANESTHESIA PLAN: normal airway, ASA III, Local Anesthesia, Risks, benefits & alternatives of sedation and/or procedure discussed and Patient agrees to continue as planned ADDITIONAL INFORMATION: Moderate sedation
[2022-10-01 09:29] LABS: Glucose Point of Care 269 mg/dL (70-110)
--- NOTE | 2022-10-01 10:28 | PC.NURSE ---
Around 0800: Patient returned to CPRU post procedure. IV site to patients right forearm infiltrated. IV removed. Covered site with 4x4, wrapped with coban. Around 1000: TR Band removed from patients right wrist. No drainage or hematoma noted. Vitals stable, no c/o pain or discomfort. Cleaned around site with soap and water, covered puncture site with band-aid. Will continue to monitor.
--- NOTE | 2022-10-01 11:53 | PC.NURSE ---
Discharge orders received. Dressing to patients right wrist clean, dry, et intact. No drainage or hematoma noted. Vitals stable, no c/o pain or discomfort. IV removed. Post cardiac catheterization instructions reviewed with patient and spouse. Patient verbalized understanding of all teaching. Follow-up appointments made. Patient discharged to home via wheelchair in private vehicle with spouse.
== END 2022-10-01 12:00 | disposition home or self-care (01) ==
PROVIDERS: Internal Medicine; PCP Family Medicine; Visit Provider Internal Medicine Cardiovascular Disease
DX: I20.0 Unstable angina (principal); Z79.01 Long term (current) use of anticoagulants; I48.11 Longstanding persistent atrial fibrillation; E11.22 Type 2 diabetes mellitus with diabetic chronic kidney disease; I12.9 Hypertensive chronic kidney disease with stage 1 through stage 4 chronic kidney disease, or unspecified chronic kidney disease; N18.9 Chronic kidney disease, unspecified; G47.30 Sleep apnea, unspecified; Z79.82 Long term (current) use of aspirin; E66.01 Morbid (severe) obesity due to excess calories; Z68.41 Body mass index [BMI] 40.0-44.9, adult; Z98.61 Coronary angioplasty status; Z98.84 Bariatric surgery status
CPT/HCPCS: 36415; 36416; 82962; 93458; 96365; 99152; 99153; C1769; C1887; C1894; J1644; J2250; J3010; J3490; J7030; Q0163; Q9967

== ENCOUNTER → 2022-10-08 09:05 | Outpatient (BNVA) | payer MEDICARE, SELFPAY | PROVIDERS: PCP Family Medicine; Visit Provider Nurse Practitioner Family | DX: I20.0 Unstable angina (principal); I13.0 Hypertensive heart and chronic kidney disease with heart failure and stage 1 through stage 4 chronic kidney disease, or unspecified chronic kidney disease; E11.22 Type 2 diabetes mellitus with diabetic chronic kidney disease; N18.9 Chronic kidney disease, unspecified; Z87.891 Personal history of nicotine dependence; Z79.4 Long term (current) use of insulin | CPT/HCPCS: 36415; 80048; 99214 ==

== ENCOUNTER → 2022-11-26 13:06 | Outpatient (BNVA) | payer MEDICARE, SELFPAY | PROVIDERS: PCP Family Medicine; Visit Provider Internal Medicine Cardiovascular Disease | DX: I20.0 Unstable angina (principal); E66.01 Morbid (severe) obesity due to excess calories; I48.11 Longstanding persistent atrial fibrillation; G47.33 Obstructive sleep apnea (adult) (pediatric); Z99.89 Dependence on other enabling machines and devices; Z98.61 Coronary angioplasty status; Z98.84 Bariatric surgery status; Z79.01 Long term (current) use of anticoagulants; I12.9 Hypertensive chronic kidney disease with stage 1 through stage 4 chronic kidney disease, or unspecified chronic kidney disease; E11.22 Type 2 diabetes mellitus with diabetic chronic kidney disease; E11.65 Type 2 diabetes mellitus with hyperglycemia; N18.9 Chronic kidney disease, unspecified; Z87.891 Personal history of nicotine dependence; Z79.4 Long term (current) use of insulin; Z68.41 Body mass index [BMI] 40.0-44.9, adult; Z79.82 Long term (current) use of aspirin | CPT/HCPCS: 99213 ==

== ENCOUNTER → 2023-01-10 09:51 | Outpatient (BNVA) | payer MEDICARE, SELFPAY | PROVIDERS: PCP Family Medicine; Referring Provider Family Medicine; Visit Provider Physician Assistant | DX: M25.511 Pain in right shoulder (principal); M25.512 Pain in left shoulder | CPT/HCPCS: 73030; 99203 ==

== ENCOUNTER 2023-03-06 13:35 | Emergency (ER) | payer MEDICARE, SELFPAY ==
[2023-03-06 13:37] VITALS: BP 168/100; PULSE 84; RESP 18; TEMP 36.6; O2SAT 95
--- NOTE | 2023-03-06 14:00 | CT_ITS ---
WS: [id number] CT CERVICAL TRAUMA TECHNIQUE: Noncontrast CT of the cervical spine with coronal and sagittal reformatted images. CLINICAL INFORMATION: trauma COMPARISON: None. DLP: 1686.[address] scans at [facility] use at least one of these dose optimization techniques: automated e xposure control; mA and/or kV adjustment per patient size (includes targeted exams where dose is matc hed to clinical indication); or iterative reconstruction. FINDINGS: Straightening of the normal cervical lordosis. Moderate spondylitic changes. Mild cervical curve. Ant erior hypertrophic changes C4-C6. Slight anterolisthesis C4 on C5. Endplate Schmorl's node at C7. Dis c space narrowing worse at C5-C7. Normal craniocervical junction. Normal C1-C2 articulation. Dens is normal in appearance. Normal occipital condyles. No high-grade spinal canal narrowing. Normal C1 ring . No evidence of acute fracture or dislocation. Normal prevertebral soft tissues. Mastoids air cells are well aerated. CT/CT cervical spin wo con* [id number] IMPRESSION: No evidence of acute fracture or dislocation.
--- NOTE | 2023-03-06 14:00 | CT_ITS ---
WS: [id number] CT HEAD TECHNIQUE: Noncontrast CT of the head obtained from the skullbase to the vertex. CLINICAL INFORMATION: trauma COMPARISON: December 27, 2021 DLP: 1686.[address] scans at [facility] use at least one of these dose optimization techniques: automated e xposure control; mA and/or kV adjustment per patient size (includes targeted exams where dose is matc hed to clinical indication); or iterative reconstruction. FINDINGS: No evidence of intracranial hemorrhage or mass effect. Ventricular system and basal cisterns are collazo nt. Mild small vessel changes with moderate parenchymal volume loss. Intracranial vascular calcificat ion. Incidental cavum septum pellucidum and vergae Mild mucosal thickening in the ethmoid air cells. Mastoid air cells well aerated. Normal posterior na sopharynx and parapharyngeal fat. IMPRESSION: 1. No evidence of intracranial hemorrhage or mass effect. 2. . Mild small vessel changes with moderate parenchymal volume loss. 3. Intracranial vascular calcification. 4. No acute intracranial findings.
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
--- NOTE | 2023-03-06 14:00 | ECG_ITS ---
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 Measurements Intervals Glenn Rate: 81 P: 0 AK: 0 QRS: 60 QRSD: 102 T: 37 QT: 356 QTc: 415 Interpretive Statements ATRIAL FIBRILLATION ABNORMAL RHYTHM ECG Compared to ECG 12/27/2021 13:32:07 Myocardial infarct finding no longer present Electronically Signed On 03-06-2023 20:29:45 CDT by Keesha Alfaro M.D. [id number]
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
[2023-03-06] MEDS: ketorolac 30 mg/mL INJ IVP (14:39)
[2023-03-06 14:44] LABS: Basophils # 0.1 10^3/uL (0.0-0.1); Eosinophils # 0.1 10^3/uL (0.0-0.8); Eosinophils % 1.7 %; Hemoglobin 13.2 g/dL (11.7-16.6); Lymphocytes # 1.5 10^3/uL (0.8-4.8); Lymphocytes % 26.3 %; Mean Corpuscular HGB Conc 34.7 g/dL (30.0-36.0); Mean Corpuscular Volume 83.5 fl (80-94); Monocytes # 0.4 10^3/uL (0.2-0.9); Monocytes % 7.6 %; Neutrophils # 3.65 10^3/uL (1.8-7.7); Neutrophils % 63.1 %; Nucleated Red Blood Cells % 0 %; Platelet Count 156 10^3/cmm (130-400); Red Blood Count 4.55 10^6/uL (4.1-5.3); Red Cell Distribution Width 13.3 % (12.1-15.1); White Blood Count 5.8 10^3/uL (4.0-10.0)
[2023-03-06] MEDS: iohexol 350 mg/mL 500 mL Btl (per mL) IV (15:03)
[2023-03-06 15:07] LABS: Alanine Aminotransferase 20 U/L (0-41); Albumin Level 4.4 g/dL (3.5-5.2); Alkaline Phosphatase 65 U/L (40-130); Anion Gap 19.2 (5-19); Aspartate Amino Transferase 20 U/L (0-40); Blood Urea Nitrogen 19 mg/dL (8-23); Calcium 9.9 mg/dL (8.5-10.5); Carbon Dioxide 23 mmol/L (22-29); Chloride 102 mmol/L (98-107); Globulin 3.1 g/dL (1.3-4.6); Glomerular Filtration Rate 112.8 mL/min (90-130); Glucose 177 mg/dL (65-115); Osmolality Calculated 297 mOsm/kg (285-295); Potassium 4.2 mmol/L (3.5-5.1); Sodium 140 mmol/L (136-145); Total Bilirubin 0.8 mg/dL (0.15-1.2); Total Protein 7.5 g/dL (6.6-8.7)
--- NOTE | 2023-03-06 15:48 | PC.PHAR ---
pt states his takes care of his medication-pts verified pts medications-states the pt is still taking losartan 100mg daily (states had build up ext doesnt show when last filled)-metoprolol tartrate 25mg qam (ext shows last filled 07/12/22 90d/s 25mg bid)-spironolactone 25mg qam (ext doesnt show when last filled pts states the pt has a build up)-pts states the dr diop the imdur er 30mg ext shows last filled 09/18/22 15mg bid and rx written 11/26/22 15mg daily-
== END 2023-03-06 16:02 | disposition home or self-care (01) ==
PROVIDERS: Emergency Provider Family Medicine; PCP Family Medicine
DX: M25.512 Pain in left shoulder (principal); M25.511 Pain in right shoulder; I12.9 Hypertensive chronic kidney disease with stage 1 through stage 4 chronic kidney disease, or unspecified chronic kidney disease; E11.22 Type 2 diabetes mellitus with diabetic chronic kidney disease; N18.9 Chronic kidney disease, unspecified; E66.01 Morbid (severe) obesity due to excess calories; Z68.41 Body mass index [BMI] 40.0-44.9, adult; Z87.891 Personal history of nicotine dependence; Z79.4 Long term (current) use of insulin; Z79.01 Long term (current) use of anticoagulants; Z79.85 Long-term (current) use of injectable non-insulin antidiabetic drugs; Z79.899 Other long term (current) drug therapy; V89.2XXA Person injured in unspecified motor-vehicle accident, traffic, initial encounter; Y92.411 Interstate highway as the place of occurrence of the external cause
CPT/HCPCS: 70450; 71260; 72125; 73030; 74177; 80053; 85025; 93005; 96374; 99285; J1885; Q9967

== ENCOUNTER → 2023-03-13 13:36 | Outpatient (BNVA) | payer MEDICARE, SELFPAY | PROVIDERS: PCP Family Medicine; Visit Provider Physician Assistant | DX: S46.012A Strain of muscle(s) and tendon(s) of the rotator cuff of left shoulder, initial encounter; S46.011A Strain of muscle(s) and tendon(s) of the rotator cuff of right shoulder, initial encounter; W17.89XA Other fall from one level to another, initial encounter | CPT/HCPCS: 99213 ==

== ENCOUNTER → 2023-04-02 06:53 | Outpatient (BNVA) | payer MEDICARE, SELFPAY | PROVIDERS: PCP Family Medicine; Visit Provider Student in an Organized Health Care Education/Training Program | DX: M75.41 Impingement syndrome of right shoulder; M75.121 Complete rotator cuff tear or rupture of right shoulder, not specified as traumatic; M19.011 Primary osteoarthritis, right shoulder; S46.211A Strain of muscle, fascia and tendon of other parts of biceps, right arm, initial encounter; V89.2XXA Person injured in unspecified motor-vehicle accident, traffic, initial encounter | CPT/HCPCS: 99204 ==

== ENCOUNTER → 2023-04-11 08:57 | Outpatient (BNVA) | payer MEDICARE, SELFPAY | PROVIDERS: PCP Family Medicine; Visit Provider Family Medicine | DX: E11.9 Type 2 diabetes mellitus without complications (principal); Z01.818 Encounter for other preprocedural examination | CPT/HCPCS: 80053; 81000; 83036; 85025 ==

== ENCOUNTER 2023-04-22 08:15 | Day surgery (SDC) | payer MEDICARE, SELFPAY ==
[2023-04-19 15:19] VITALS: BMI 40.6
[2023-04-22] VITALS (13 sets, daily range): BP systolic 125–164; BP diastolic 59–107; PULSE 83–104; RESP 12–18; TEMP 36.1–36.2; O2SAT 91–98
[2023-04-22] MEDS: acetaminophen 1,000 MG/100 ML PIGGYBACK 400 MG IV (09:25)
[2023-04-22] MEDS: ketorolac 30 mg/mL INJ IVP (09:28)
--- NOTE | 2023-04-22 09:35 | P.HPUD_ITS ---
Surgery/Procedure H&P Update DATE OF PROCEDURE: April 22, 2023 DATE H&P PERFORMED: 04/02/23 CHANGES TO PREVIOUS DOCUMENTATION: None. No change in HPI visit from 04/02/2023. Patient understands risk benefits complication alternatives surgery and elects proceed with surgical intervention all questions answered. We will proceed with right shoulder diagnostic and surgical arthroscopy with subacromial decompression biceps tenotomy acromioclavicular joint resection and rotator cuff repair. All questions answered. PREOP DIAGNOSIS: right shoulder rotator cuff tear, AC joint arthritis subacromial impingeme PRIMARY INDICATION FOR PROCEDURE: Right shoulder rotator cuff tear, AC joint arthritis, subacromial impingement, biceps tendon tearing and subluxation PLANNED PROCEDURE: Operation Date: 04/22/23 09:50 Proposed Procedures p Right shoulder diagnostic and surgical arthroscopy [id number] tenoto mysubacromial decompression 52604, acromioclavicular resection , rotator cuff repair 86763, M75.101 M12.811(Right) - Han Theo, DO s Bicep Tenotomy(Right) - Han Theo, DO s Subacromial Decompression(Right) - Han Theo, DO s AC Joint Resection Acromioclavicular Joint Resection(Right) - Han Rincon, DO s Rotator Cuff Repair - Arthroscopy(Right) - Han Rincon, DO
[2023-04-22 09:39] LABS: Glucose Point of Care 193 mg/dL (70-110)
[2023-04-22] MEDS: sodium chloride 0.9% 1,000 ML 30 ML IV (09:46)
[2023-04-22] MEDS: HYDROmorphone 1 mg/mL INJ 1 mL 0.5 MG IVP (10:14)
--- NOTE | 2023-04-22 10:22 | PC.NURSE ---
1014 Dilaudid 0.5mg ivp given per dr. newton pre nerve block
[2023-04-22] MEDS: ceFAZolin 2,000 MG in sodium chloride 0.9% (plus) 50 ML 100 MG IV (10:49)
--- NOTE | 2023-04-22 11:41 | P.ANESASSM_ITS ---
Pre-Anesthetic Assessment Height/Weight: Height 1.83 m Weight 136.078 kg Temp Pulse Resp BP Pulse Ox O2 Del Method 97 F L 85 18 125/76 97 Room Air 04/22/23 08:44 04/22/23 08:44 04/22/23 08:44 04/22/23 08:44 04/22/23 08:44 04/22/23 09:34 Preop Diagnosis: right shoulder rotator cuff tear, AC joint arthritis subacromial impingeme Operation Date: 04/22/23 09:50 Proposed Procedures p Right shoulder diagnostic and surgical arthroscopy [id number] tenotomysubacromial decompression 35435, acromioclavicular resection , rotator cuff repair 02905, M75.101 M12.811(Right) - Han Orleans, DO s Bicep Tenotomy(Right) - Han Theo, DO s Subacromial Decompression(Right) - Han Orleans, DO s AC Joint Resection Acromioclavicular Joint Resection(Right) - Han Theo, DO s Rotator Cuff Repair - Arthroscopy(Right) - Han Orleans, DO Familial anesthetic complications: none Was Beta Monica taken within 24 hours: Yes Was Clonidine taken within 24 hours: N/A Last intake: Intake Last Liquid Date 04/21/23 Last Liquid Time 22:00 Last Solid Date 04/21/23 Last Solid Time 18:00 Social No alcohol and No tobacco Exam alert, oriented x 3, clear to auscultation bilaterally and regular rate & rhythm Airway Submandibular: within normal limits Cervical ROM: within normal limits Mallampati: Class II Dentition: false Pulmonary Sleep Apnea CV/HEM Atrial Fibrillation, Coronary Artery Disease (stents) and Hypertension Chronic Renal Insufficiency Metabolic Diabetes Mellitus, Hyperlipidemia and Morbid Obesity Anesthetic Plan ASA status: 3 Anesthesia: General and Regional (specify below) (right interscalene nerve blk) Medications/Allergies Home Medications Medication Instructions Recorded Confirmed Last Taken Type nitroglycerin 0.4 mg sublingual 0.4 mg sublingual Q5M PRN chest 02/15/21 04/19/23 Unknown Rx tablet (Nitrostat) pain 3 months #25 tabs losartan 100 mg tablet 100 mg PO QAM 12/27/21 04/19/23 04/21/23 History metoprolol tartrate 25 mg tablet 25 mg PO QAM 12/27/21 04/19/23 04/21/23 History spironolactone 25 mg tablet 25 mg PO QAM 12/27/21 04/19/23 04/21/23 History miscellaneous medical supply See Rx Instructions miscellaneous 05/09/22 04/02/23 Unknown Rx .COMPLEX #1 ea insulin regular hum U-500 conc 500 See Rx Instructions .Route 07/18/22 04/19/23 04/21/23 Rx unit/mL subcutaneous soln (Humulin .COMPLEX #20 mL R U-500 (Concentrated) Insulin) rivaroxaban 20 mg tablet (Xarelto) 20 mg PO QAM 09/21/22 04/22/23 04/18/23 History furosemide 40 mg tablet 40 mg PO QAM #90 tabs 11/13/22 04/19/23 04/21/23 Rx simvastatin 40 mg tablet 40 mg PO QAM #90 tabs 12/10/22 04/19/23 04/21/23 Rx aspirin 81 mg tablet,delayed 81 mg PO DAILY PRN unknown 03/06/23 04/19/23 04/08/23 History release (Adult Aspirin Regimen) dapagliflozin propanediol 10 mg 10 mg PO QAM 03/06/23 04/19/23 04/21/23 History tablet (Farxiga) ibuprofen 200 mg tablet 400 - 600 mg PO Q6H PRN Pain 03/06/23 04/19/23 04/08/23 History semaglutide 0.25 mg or 0.5 mg (2 0.5 mg SUBCUT Q7D 03/06/23 04/19/23 04/14/23 History mg/3 mL) subcutaneous pen injector (Ozempic) tramadol 50 mg tablet 50 mg PO Q4-5H PRN Pain, Moderate 04/22/23 04/22/23 04/16/23 History Allergies Allergy/AdvReac Type Severity Reaction Status Date / Time No Known Allergies Allergy Verified 04/11/23 09:06 Current Medications Generic Name Dose Route Start Last Admin Trade Name Freq PRN Reason Stop Dose Admin Sodium Chloride 1,000 mls @ 30 mls/hr 04/22/23 08:30 04/22/23 09:46 Sodium Chloride 0.9% IV 04/23/23 08:29 30 mls/hr .Q24H LEI Administration PFSH Anesthesia Medical History (Updated 04/06/23 @ 10:02 by Han Venegas DO) Anticoagulant long-term use Atrial fibrillation CKD (chronic kidney disease) Diabetes Diastolic dysfunction HTN (hypertension) Morbid obesity ARELY on CPAP Surgical History S/P gastric bypass S/P PTCA (percutaneous transluminal coronary angioplasty) Family History Father Diabetes Social History (Updated 04/02/23 @ 07:04 by Antonia Deng LPN) Smoking and tobacco status: former smoker Alcohol intake: never Household members: spouse Marital status: Data Anesthesia Cardiac Studies: No Data to Display Anesthesia Procedures Nerve Block Nerve Block 1: Main Anesthesia: general anesthesia Time Out Performed: Yes Consent: requested by attending/covering physician, from patient, risks and benefits reviewed and patient agrees to proceed Nerve block location: interscalene (right) Anesthesia monitors applied: pulse oximetry, EKG, BP cuff and oxygen Nerve block position: semi sitting Anesthetic Used: ropivicaine 0.5% Amount of anesthesia used (mL): 30 Ultrasound used to: recognize landmarks and visualize and ID brachial plexus Nerve Stimulator Used?: No Interscalene/Femoral BLK: 2 stimuplex 22 g needle used for position and inplane approach Injection: neg aspiration of heme Patient Tolerated Procedure: well Complications: none
[2023-04-22] MEDS: EPINEPHrine 1 mg/mL INJ 2 MG XX (11:45)
--- NOTE | 2023-04-22 14:49 | PM.OP2 ---
Brief Operative Note Date of procedure: 04/22/23 Pre-op diagnosis: Right shoulder rotator cuff tear, AC joint arthritis, biceps tendon Post-op diagnosis: same Procedure Done: Right shoulder diagnostic and surgical arthroscopy Biceps tendon anatomy Subacromial decompression Acromioclavicular resection Open rotator cuff repair Surgeon: Han Venegas Estimated blood loss (mL): 25 Complications: none Post-op Plan: Keep left arm and shoulder sling and limit activity for the next 2 weeks until your follow-up appointment. To prevent frozen shoulder you can take arm out of sling and let it hang down and do pendulum swings. No weight-bear to the operative extremity. Ice and elevate as needed for pain and swelling Take pain medication as prescribed Take antinausea medication as needed May supplement for pain with ibuprofen [id number] as needed Patient should leave dressing on in place for 72 hours, at that time may remove all dressings leave sutures in place may rinse incisions with warm soapy water pat dry and redress with dry dressing. No baths or soaks Follow-up in the orthopedic office in 2 weeks Contact the office for any questions or concerns Condition: stable Disposition: PACU Coding Level of Care Code Acute Code for Phongg Eneida
--- NOTE | 2023-04-22 14:52 | PM.PACU ---
PACU note Narrative: Patient is a 67-year-old male just underwent a right shoulder diagnostic and surgical arthroscopy with a rotator cuff repair. Patient transferred to PACU in stable condition. Pain is well controlled. Patient was somnolent but arousable. Dressing on shoulder is dry and intact and patient is in a ultra sling of right arm. Patient's fingers are warm and well-perfused. Patient can wiggle fingers. normal cap refill under 2 seconds. Unable to assess sensation due to regional block to the arm. Exam: somnolent, arousable Disposition: discharged
[2023-04-22 15:51] LABS: Glucose Point of Care 233 mg/dL (70-110)
--- NOTE | 2023-04-22 17:05 | ANE.PACU2 ---
Inpatient post-anesthesia follow up: Airway intact: Yes Vital signs: Temperature 97 F Pulse Rate 83 Respiratory Rate 18 Blood Pressure 164/88 Pulse Oximetry 97 Oxygen Delivery Me thod Room Air Oxygen Flow Rate 6 Fraction of Inspir ed Oxygen Hydration adequate: Yes Nausea and vomiting: No Pain level: 1 Mental status: Baseline
--- NOTE | 2023-04-22 18:52 | P.OP_ITS ---
Operative Report Date of procedure: April 22, 2023 Surgeon: Han Venegas DO Procedure: Preoperative diagnosis: Right shoulder AC joint arthritis, biceps tendinitis and tearing, rotator cuff tear, AC joint arthritis, subacromial impingement Post-op diagnosis:? Right shoulder?labral tear Right?shoulder?biceps tendon tear Right?shoulder?rotator cuff tear of supraspinatus and infraspinatus Right?shoulder?AC joint arthritis Right?shoulder?subacromial bursitis/impingement Procedure done: Right?shoulder?diagnostic and surgical arthroscopy with open rotator cuff repair of supraspinatus tendon (massive rotator cuff tear) Right shoulder diagnostic and surgical arthroscopy with open rotator cuff repair of infraspinatus tendon (medium tear) Right?shoulder?diagnostic and surgical arthroscopy biceps tenotomy Right?shoulder?diagnostic and surgical arthroscopy?labral debridement Right?shoulder?diagnostic and surgical arthroscopy acromioclavicular joint resection Right?shoulder?diagnostic and surgical arthroscopy subacromial decompression (acromioplasty and bursectomy) Surgeon: Han Venegas DO Estimated blood?loss: 20 mL IV fluids: See anesthesia record Implants: Arthrex 4.75 swivel?lock x5 Arthrex scorpion and suture tape Complications: None Condition: stable Disposition: same day Brief History: Patient been seen and worked up in the outpatient setting for?right?shoulder?pain.? Pt had an MRI which showed full-thickness rotator cuff tendon tear as well as AC joint arthritis, subacromial impingement, biceps tendinitis/tearing. Patient's failed conservative treatment and has weakness.? We talked about treatment options far as nonoperative and operative intervention..? We talked about risk benefits complication alternatives surgical nonsurgical treatment options.? Understanding risk of surgery pt agrees to proceed with surgical intervention.? All questions have been answered at this time.? Patient elects proceed with surgery and consent obtained in office. Procedure: Patient seen evaluated in the preoperative holding area.? Consent reviewed and signed with patient.? Once again reviewed patient's MRI results as well as? planned surgical intervention.? Correct extremity marked.? Patient seen evaluated by anesthesia department received regional anesthesia.? Once ready for surgery was taken back to the operative suite.? Patient then subsequently underwent anesthesia per the anesthesia department was transported onto the OR table.? Patient was then placed into a?lateral decubitus position with a beanbag and was appropriately secured to the bed.? All bony prominences well-padded.? Patient then had the?right upper extremity was then prepped and draped in standard orthopedic fashion.? Patient received appropriate preoperative antibiotics.? Final timeout performed. The?right upper extremity was then held in hanging from traction utilizing sterile technique.? Next started with standard diagnostic and surgical arthroscopy with posterior portal position introduced arthroscope into the glenohumeral joint.? Visualized the glenohumeral joint I then introduced a spinal needle within the rotator cuff interval to confirm appropriate anterior portal placement.? Once this was confirmed I then made my small incision and then introduced my arthroscopic shaver into the glenohumeral joint.? After thorough debridement was clearly evident patient had a significant erythema as well as positive?liftoff sign of the biceps anchor and biceps tendon tear as it was pulled within the joint.? Decision at this time was made to perform a biceps tenotomy.? Introduced a thermal wand and a biceps tenotomy was performed to completion With appropriate release.? Next I evaluated the subscapularis tendon which was intact and no evidence of tear. ?Next there was significant?labral tearing at biceps anchor and circumferential.? ? I then subsequently utilized a a arthroscopic shaver and thermal wand to perform a?labral debridement.? This point time I then visualized the glenohumeral joint.? 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 Infrapatellar pouch was free of?loose bodies from viewing the posterior portal.? Next a visualized the rotator cuff superiorly and there was found to be a massive supraspinatus tendon tear.? I utilized a spinal needle to vickie this?location.? ?This completed my work within the glenohumeral joint all fluid was suctioned free of the joint.? ?Next I reintroduced the arthroscope posteriorly.? And went to the subacromial space.? I established my?lateral working portal at the site of which my spinal needle was marking of the rotator cuff tear.? Thermal wand was then introduced?laterally and then I subsequently performed extensive bursectomy of the subacromial space.? Patient had a?large anterior bone spur.? At this point time I proceeded with my AC joint resection thermal wand was used and track to the anterior edge of the acromion and then tracked all the way to the AC joint.? Once identified the AC joint this was very arthritic in nature.? Thermal wand was placed anteriorly to establish appropriate plane for AC joint resection.? Once appropriate margins and anterior inferior and anterior capsule was released I then introduced arthroscopic shaver and a bur and performed AC joint resection of both the acromion to cope plane at the AC joint and a distal clavicle resection was then performed totaling 1 cm in size and was confirmed.? This completed my AC joint resection and I then introduced the arthroscopic shaver?laterally while continuing to view posteriorly.? Then performed an acromioplasty to complete subacromial decompression Next the arthroscopic shaver was then used previous spinal needle spot that is marked the rotator cuff this was insistent with a massive full-thickness rotator cuff tear with retraction of the supraspinatus tendon there also was a medium sized tear of the infraspinatus tendon in addition. Given the complex city of this injury and tear pattern I determined this was going to be a significant challenge and repair through standard arthroscopy and as result elected to perform an open rotator cuff repair. All fluid and trocars instrumentation was suctioned from the shoulder joint. I then extended my lateral incision in standard rotator cuff repair fashion split the deltoid fascia and utilized my assistant men's lacrosse coach for retraction. All fluid was suctioned and I remove the bursa. Next I had direct visualization of the rotator cuff tendon tear. I first put my attention towards the smaller of the 2 tears of the infraspinatus tendon as this had a standard medium sized tear and would be amendable to a single medial row anchor and a lateral row anchor. I then subsequently utilized my punch a 475 swivel lock which was loaded with Arthrex suture tape this was then advanced and had excellent fixation I utilized a scorpion to pass through the medium size rotator cuff tear and then utilizing a knotless repair speed bridge technique I then subsequently set my footprint for bilateral anchor for the infraspinatus tendon tear my punch was then set my 4.75 mm Arthrex swivel lock was then loaded had appropriate tension was made for the infraspinatus tendon tear and this swivel lock was then advanced with excellent fixation all excess suture was then cut. At this point in time I then turned my attention towards the massive rotator cuff tear I to fiber link stitches and luggage tag fashion to obtain control of the retracted supraspinatus tendon tear. Once I had excellent control of this I was able to pull appropriate tension and it did appear that this would actually have excellent coverage of the humeral head and near close to the rotator cuff footprint. The rotator cuff footprint was then subsequently debrided and prepped. I utilized my to excess sutures from my initial medial row anchor of the infraspinatus tendon and brought these up through the massive rotator cuff tear of the supraspinatus tendon. Both of the sutures were then passed through the supraspinatus tendon with the Arthrex scorpion. I then placed an additional medial row anchor which was then set with 4 individual sutures of FiberWire and fiber tape. These were then subsequently passed in sequential fashion throughout the supraspinatus tendon to have excellent control I then utilizing 3 limbs of each I then subsequently loaded these on 2 additional 4.75 swivel locks for my lateral row anchors and a standard double row fashion. I was able to incorporate the luggage tag sutures as well within the swivel locks. I then identified my appropriate tube placements for my lateral row footprint I started with my posterior of the 2 first punch was advanced I then loaded the 475 swivel lock with suture and then keeping this under appropriate tension which was held by my assistant men's lacrosse coach I was able to advance the 475 swivel lock with excellent fixation. All excess suture was then cut. I then performed the same fashion for the anterior anchor for the lateral row. Sutures were held under appropriate tension for 7 5 swivel lock was advanced after appropriately being punched and had excellent fixation all excess suture was removed. I was able to this point time to have excellent visualization of the rotator cuff repair was much moved as a single unit. Repair was found to be satisfactory?shoulder?was taken through range of motion and the repair moved as a unit with no evidence of?loss of fixation. ?Next I then introduced the arthroscopic shaver posteriorly to complete my subacromial decompression appropriate complaining all the way up to the?lateral edge of the acromion.? This completed the surgery.? All fluid was suctioned from the?shoulder.? All instruments were removed.? The?lateral incision was then closed with nylon stitches.? As well as the portal sites closed with portal nylon stitches.? Xeroform 4 x 4's ABD and tape was then applied to the?right?shoulder?and was placed into a?shoulder?abduction pillow sling for rotator cuff repair.? Patient was then awakened from anesthesia and then taken back to PACU in stable condition.? Patient tolerated procedure without any issues. Disposition: Patient taken back in stable condition recovering well.? Dressings on in place clean dry and intact.? Will be nonweightbearing to the?right upper extremity.? Follow rotator cuff repair protocol.? Patient to follow-up with me in the office in 2 weeks.? Patient will receive appropriate discharge instruction as well as pain medication postoperatively.? All questions answered.? We will contact the office for any questions or concerns.
== END 2023-04-22 17:13 | disposition home or self-care (01) ==
PROVIDERS: PCP Family Medicine; Visit Provider Student in an Organized Health Care Education/Training Program
PROC: (CPT 29805; principal; 2023-04-22 09:40)
PROC: (CPT 24310; 2023-04-22 09:40)
PROC: (CPT 29826; 2023-04-22 09:40)
DX: M75.101 Unspecified rotator cuff tear or rupture of right shoulder, not specified as traumatic (principal); M13.811 Other specified arthritis, right shoulder; I48.91 Unspecified atrial fibrillation; I25.10 Atherosclerotic heart disease of native coronary artery without angina pectoris; Z95.5 Presence of coronary angioplasty implant and graft; E78.5 Hyperlipidemia, unspecified; E66.01 Morbid (severe) obesity due to excess calories; Z68.41 Body mass index [BMI] 40.0-44.9, adult; G47.33 Obstructive sleep apnea (adult) (pediatric); E11.22 Type 2 diabetes mellitus with diabetic chronic kidney disease; I12.9 Hypertensive chronic kidney disease with stage 1 through stage 4 chronic kidney disease, or unspecified chronic kidney disease; N18.9 Chronic kidney disease, unspecified
CPT/HCPCS: 29826; 29827; 29828; 36416; 82962; 87086; C1713; J0131; J0171; J0690; J1100; J1170; J1885; J2405; J2704; J2795; J3010; J3490; J7030

== ENCOUNTER → 2023-04-29 10:49 | Outpatient (BNVA) | payer MEDICARE, SELFPAY | PROVIDERS: PCP Family Medicine; Visit Provider Internal Medicine Cardiovascular Disease | DX: I48.11 Longstanding persistent atrial fibrillation (principal); Z79.01 Long term (current) use of anticoagulants; Z98.84 Bariatric surgery status; Z98.61 Coronary angioplasty status; G47.33 Obstructive sleep apnea (adult) (pediatric); Z99.89 Dependence on other enabling machines and devices; E66.01 Morbid (severe) obesity due to excess calories; Z68.41 Body mass index [BMI] 40.0-44.9, adult; I13.10 Hypertensive heart and chronic kidney disease without heart failure, with stage 1 through stage 4 chronic kidney disease, or unspecified chronic kidney disease; E11.22 Type 2 diabetes mellitus with diabetic chronic kidney disease; N18.9 Chronic kidney disease, unspecified; Z87.891 Personal history of nicotine dependence; Z79.4 Long term (current) use of insulin | CPT/HCPCS: 99213 ==

== ENCOUNTER → 2023-05-07 07:59 | Outpatient (BNVA) | payer MEDICARE, SELFPAY | PROVIDERS: PCP Family Medicine; Visit Provider Student in an Organized Health Care Education/Training Program | DX: M75.101 Unspecified rotator cuff tear or rupture of right shoulder, not specified as traumatic (principal); M75.41 Impingement syndrome of right shoulder; S46.211A Strain of muscle, fascia and tendon of other parts of biceps, right arm, initial encounter; M19.011 Primary osteoarthritis, right shoulder; X58.XXXA Exposure to other specified factors, initial encounter | CPT/HCPCS: 99024 ==

== ENCOUNTER → 2023-06-14 10:33 | Outpatient (BNVA) | payer MEDICARE, SELFPAY | PROVIDERS: PCP Family Medicine; Visit Provider Physician Assistant | DX: Z98.890 Other specified postprocedural states | CPT/HCPCS: 99024 ==

== ENCOUNTER → 2023-08-15 12:49 | Outpatient (BNVA) | payer MEDICARE, SELFPAY | PROVIDERS: PCP Family Medicine; Visit Provider Physician Assistant | DX: Z98.890 Other specified postprocedural states (principal) | CPT/HCPCS: 99213 ==

== ENCOUNTER → 2023-10-10 12:51 | Outpatient (BNVA) | payer MEDICARE, SELFPAY | PROVIDERS: PCP Family Medicine; Visit Provider Physician Assistant | DX: Z98.890 Other specified postprocedural states (principal) | CPT/HCPCS: 99213 ==

== ENCOUNTER → 2023-11-25 11:03 | Outpatient (BNVA) | payer MEDICARE, SELFPAY | PROVIDERS: PCP Family Medicine; Visit Provider Internal Medicine Cardiovascular Disease | DX: I48.11 Longstanding persistent atrial fibrillation (principal); Z98.61 Coronary angioplasty status; I13.10 Hypertensive heart and chronic kidney disease without heart failure, with stage 1 through stage 4 chronic kidney disease, or unspecified chronic kidney disease; N18.9 Chronic kidney disease, unspecified; E11.22 Type 2 diabetes mellitus with diabetic chronic kidney disease; Z87.891 Personal history of nicotine dependence; Z79.4 Long term (current) use of insulin; Z79.01 Long term (current) use of anticoagulants; Z98.84 Bariatric surgery status; E66.01 Morbid (severe) obesity due to excess calories; G47.33 Obstructive sleep apnea (adult) (pediatric); Z99.89 Dependence on other enabling machines and devices; Z68.41 Body mass index [BMI] 40.0-44.9, adult | CPT/HCPCS: 99213 ==

== ENCOUNTER 2024-02-10 11:06 | Outpatient (CLI) | payer MEDICARE, SELFPAY ==
--- NOTE | 2024-02-10 11:11 | XRR_ITS ---
PROCEDURE INFORMATION: Exam: XR Left Foot Exam date and time: 02/10/2024 11:17 AM Age: 68 years old Clinical indication: Condition or disease; Other: Foot ulcer; Prior surgery; Surgery date: 6+ months; Surgery type: Middle toe amputation; Additional info: Dfu; Rule out osteomyelitis TECHNIQUE: Imaging protocol: Radiologic exam of the left foot. Views: 3 or more views. COMPARISON: No relevant prior studies available. FINDINGS: Bones/joints: No acute fracture or dislocation. 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 Chronic appearing erosion of the distal 1st metatarsal and proximal phalanx. Degenerative changes of the 2nd MTP joint with lateral angulation at the joint. Midfoot spurring noted. Plantar and Achilles insertion enthesophytes. No acute cortical erosion or periostitis to suggest osteomyelitis. Soft tissues: See Bones/joints finding. XR/XR foot LT min 3V* [id number] IMPRESSION: 1. No acute fracture or dislocation. 2. No acute cortical erosion or periostitis to suggest osteomyelitis. Recommend correlation with MRI if there is continued clinical concern.
== END 2024-02-10 11:07 | disposition home or self-care (01) ==
LOC: RAD 11:08
PROVIDERS: PCP Family Medicine; Visit Provider Nurse Practitioner Family
DX: E11.621 Type 2 diabetes mellitus with foot ulcer (principal); L97.529 Non-pressure chronic ulcer of other part of left foot with unspecified severity; M77.8 Other enthesopathies, not elsewhere classified
CPT/HCPCS: 11042; 73630; 99213; A6210; A6251

== ENCOUNTER → 2024-02-19 08:48 | Outpatient (BNVA) | payer MEDICARE, SELFPAY | PROVIDERS: PCP Family Medicine; Visit Provider Thoracic Surgery (Cardiothoracic Vascular Surgery) | DX: E11.52 Type 2 diabetes mellitus with diabetic peripheral angiopathy with gangrene (principal); E11.621 Type 2 diabetes mellitus with foot ulcer; L97.521 Non-pressure chronic ulcer of other part of left foot limited to breakdown of skin | CPT/HCPCS: 97597 ==

== ENCOUNTER → 2024-02-26 09:06 | Outpatient (BNVA) | payer MEDICARE, SELFPAY | PROVIDERS: PCP Family Medicine; Visit Provider Thoracic Surgery (Cardiothoracic Vascular Surgery) | DX: E11.52 Type 2 diabetes mellitus with diabetic peripheral angiopathy with gangrene (principal); E11.621 Type 2 diabetes mellitus with foot ulcer; L97.521 Non-pressure chronic ulcer of other part of left foot limited to breakdown of skin | CPT/HCPCS: 97597 ==

== ENCOUNTER → 2024-03-04 09:04 | Outpatient (BNVA) | payer MEDICARE, SELFPAY | PROVIDERS: PCP Family Medicine; Visit Provider Thoracic Surgery (Cardiothoracic Vascular Surgery) | DX: E11.52 Type 2 diabetes mellitus with diabetic peripheral angiopathy with gangrene (principal); E11.621 Type 2 diabetes mellitus with foot ulcer; L97.521 Non-pressure chronic ulcer of other part of left foot limited to breakdown of skin | CPT/HCPCS: 97597 ==

== ENCOUNTER → 2024-03-11 08:59 | Outpatient (BNVA) | payer MEDICARE, SELFPAY | PROVIDERS: PCP Family Medicine; Visit Provider Thoracic Surgery (Cardiothoracic Vascular Surgery) | DX: E11.52 Type 2 diabetes mellitus with diabetic peripheral angiopathy with gangrene (principal); E11.621 Type 2 diabetes mellitus with foot ulcer; L97.521 Non-pressure chronic ulcer of other part of left foot limited to breakdown of skin | CPT/HCPCS: 97597; A6210 ==

== ENCOUNTER → 2024-03-18 08:35 | Outpatient (BNVA) | payer MEDICARE, SELFPAY | PROVIDERS: PCP Family Medicine; Visit Provider Thoracic Surgery (Cardiothoracic Vascular Surgery) | DX: E11.52 Type 2 diabetes mellitus with diabetic peripheral angiopathy with gangrene (principal); E11.621 Type 2 diabetes mellitus with foot ulcer; L97.521 Non-pressure chronic ulcer of other part of left foot limited to breakdown of skin | CPT/HCPCS: 97597 ==

== ENCOUNTER → 2024-03-25 09:38 | Outpatient (BNVA) | payer MEDICARE, SELFPAY | PROVIDERS: PCP Family Medicine; Visit Provider Thoracic Surgery (Cardiothoracic Vascular Surgery) | DX: Z09 Encounter for follow-up examination after completed treatment for conditions other than malignant neoplasm (principal); Z87.2 Personal history of diseases of the skin and subcutaneous tissue | CPT/HCPCS: 99212; A6219 ==

== ENCOUNTER 2024-04-01 20:19 | Emergency (ER) | payer MEDICARE, SELFPAY ==
[2024-04-01 20:44] VITALS: BP 148/89; PULSE 78; RESP 18; TEMP 36.5; O2SAT 99; BMI 40.6
--- NOTE | 2024-04-01 21:02 | CTR_ITS ---
PROCEDURE INFORMATION: Exam: CT Head Without Contrast Exam date and time: 04/01/2024 9:22 PM Age: 68 years old Clinical indication: Pain; Headache; Additional info: Headache, sudden onset dizziness TECHNIQUE: Imaging protocol: Computed tomography of the head without contrast. Radiation optimization: All CT scans at this facility use at least one of these dose optimization techniques: automated exposure control; mA and/or kV adjustment per patient size (includes targeted exams where dose is matched to clinical indication); or iterative reconstruction. COMPARISON: CT head wo con* [id number] 03/06/2023 2:48 PM RADIATION DOSE METRICS: Total DLP (mGy-cm): 1209 FINDINGS: Brain: Bilateral periventricular white matter hypodensities, with chronic ischemic small vessel disease. No recent infarct, intracranial bleed or mass effect. Cerebral ventricles: Cavum septum pellucidum. Paranasal sinuses: Visualized sinuses are unremarkable. No fluid levels. Mastoid air cells: Visualized mastoid air cells are well aerated. Bones: Unremarkable. No acute fracture. Soft tissues: Unremarkable. Vasculature: Vascular calcifications. CT/CT head wo con* [id number] IMPRESSION: No large territorial infarct or intracranial bleed.
--- NOTE | 2024-04-01 21:02 | XRR_ITS ---
PROCEDURE INFORMATION: Exam: XR Chest Exam date and time: 04/01/2024 9:19 PM Age: 68 years old Clinical indication: Other: Hypertension; Additional info: HTN TECHNIQUE: Imaging protocol: Radiologic exam of the chest. Views: 1 view. COMPARISON: CT chest abdpel w/*[id number] 03/06/2023 2:54 PM FINDINGS: Lungs: Unremarkable. No consolidation. Pleural spaces: Unremarkable. No pleural effusion. No pneumothorax. Heart/Mediastinum: Unremarkable. No cardiomegaly. Vasculature: Unfolding of the thoracic aorta. Bones/joints: Mild degenerative disease of bilateral acromioclavicular joints. XR/XR chest 1V portable [id number] IMPRESSION: No acute cardiopulmonary process.
--- NOTE | 2024-04-01 21:03 | ECG_ITS ---
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 Measurements Intervals Mikana Rate: 68 P: 0 HI: 0 QRS: 44 QRSD: 97 T: 34 QT: 391 QTc: 417 Interpretive Statements ATRIAL FIBRILLATION ABNORMAL RHYTHM ECG Compared to ECG 03/06/2023 14:16:53 No significant changes Electronically Signed On 04-02-2024 0:25:00 CDT by Keesha Alfaro M.D. [email or web address] [id number]
--- NOTE | 2024-04-01 21:06 | W.ED.DIZZY ---
HPI - Dizziness General: Chief Complaint: Dizziness Stated Complaint: dizzy headache eye pain no balance Time Seen by Provider: 04/01/24 20:57 History of Present Illness: HPI Narrative: Presents to the ER with complaints of a frontal type headache pressure in nature along with severe dizziness that started yesterday morning. Dizziness causes nausea and vomiting when he opens his eyes. Keeping his eyes closed and sitting upright makes his dizziness better however laying down or moving his head or opening his eyes all make this worse. He has had this once before many years ago but does not remember much about it. Patient is currently on Xarelto and Plavix. He has a history of A-fib and cardiac disease with stents. Patient has no focal localizing neurologic deficits. Patient denies any coughs colds fevers chills signs of overt sickness. Related Data Home Medications Medication Instructions Recorded Confirmed aspirin 81 mg tablet,delayed 81 mg PO DAILY PRN unknown 03/06/23 02/03/24 release (Adult Aspirin Regimen) ibuprofen 200 mg tablet 400 - 600 mg PO Q6H PRN Pain 03/06/23 02/03/24 semaglutide 0.25 mg or 0.5 mg (2 0.5 mg SUBCUT Q7D 03/06/23 02/03/24 mg/3 mL) subcutaneous pen injector (Ozempic) tramadol 50 mg tablet 50 mg PO Q4-5H PRN Pain, Moderate 04/22/23 02/03/24 Previous Rx's Medication Instructions Recorded miscellaneous medical supply See Rx Instructions miscellaneous 05/09/22 .COMPLEX #1 ea insulin regular hum U-500 conc 500 See Rx Instructions .Route 08/15/23 unit/mL subcutaneous soln (Humulin .COMPLEX #20 mL R U-500 (Concentrated) Insulin) dapagliflozin propanediol 10 mg See Rx Instructions .Route 11/08/23 tablet (Farxiga) .COMPLEX #90 tabs clopidogrel 75 mg tablet 75 mg PO DAILY #90 tabs 11/25/23 furosemide 40 mg tablet 40 mg PO QAM #90 tabs 11/25/23 losartan 100 mg tablet 100 mg PO QAM #90 tabs 11/25/23 metoprolol tartrate 25 mg tablet 25 mg PO QAM #90 tabs 11/25/23 nitroglycerin 0.4 mg sublingual 0.4 mg sublingual Q5M PRN chest 11/25/23 tablet (Nitrostat) pain 3 months #25 tabs rivaroxaban 20 mg tablet (Xarelto) 20 mg PO QAM #90 tabs 11/25/23 simvastatin 40 mg tablet 40 mg PO QAM #90 tabs 11/25/23 spironolactone 25 mg tablet 25 mg PO QAM #90 tabs 11/25/23 cephalexin 500 mg capsule 500 mg PO BID #14 caps 02/03/24 ciprofloxacin HCl 500 mg tablet 500 mg PO Q12H #14 tabs 02/03/24 Allergies Allergy/AdvReac Type Severity Reaction Status Date / Time No Known Allergies Allergy Verified 11/25/23 11:13 Review of Systems General: Reports: 10 or more systems reviewed and unremarkable except in HPI and below PFSH ED PFSH: Medical History (Updated 04/02/24 @ 00:48 by Josh Neri DO) Morbid obesity Diabetes HTN (hypertension) CKD (chronic kidney disease) Atrial fibrillation Diastolic dysfunction ARELY on CPAP Anticoagulant long-term use Surgical History S/P PTCA (percutaneous transluminal coronary angioplasty) S/P gastric bypass Family History Father Diabetes Social History Smoking and tobacco/nicotine status: former use of tobacco/nicotine Alcohol intake: never Household members: spouse Marital status: Physical Exam Const: COMMON NORMALS: no acute distress, average body habitus, patient oriented x3, no limitations, healthy appearing, alert and well nourished HENMT: COMMON NORMALS: normocephalic, atraumatic, hearing grossly normal bilaterally, external ears normal, Normal external nose present and moist oral mucous membranes HEAD & SCALP: normocephalic and atraumatic NOSE: Normal external nose present EXTERNAL EAR: Yes external ears normal Eye: COMMON NORMALS: Equal, round and reactive pupils present, EOMs intact bilaterally, conjunctivae normal and no scleral icterus CONJUNCTIVA: Yes conjunctivae normal PUPIL: Yes Equal, round and reactive pupils present Neck/C-Spine: COMMON NORMALS: full ROM, no lymphadenopathy, supple, no meningeal signs, no JVD and Thyroid normal THYROID: Thyroid normal Chest: COMMONS NORMALS: normal inspection of the chest and normal palpation of entire chest wall Resp: COMMON NORMALS: normal respiratory effort, No retractions, No use of accessory muscles and clear to auscultation bilaterally AUSCULTATION: clear to auscultation bilaterally Cardio: COMMON NORMALS: no JVD, regular rate, regular rhythm, S1 normal heart sound present, S2 normal heart sound present, No gallops present (Cardio), No clicks present (Cardio), No murmurs present (Cardio) and No rub (Cardio) RATE: regular rate RHYTHM: regular rhythm HEART SOUNDS: S1 normal heart sound present and S2 normal heart sound present GI: COMMON NORMALS: Normal to inspection, nondistended, normoactive bowel sounds present, Soft to palpation, non-tender, No hepatosplenomegaly present and no masses PALPATION: Yes Soft to palpation and Yes No hepatosplenomegaly present Neuro: COMMON NORMALS: patient oriented x3 SENSORIUM/ORIENTATION: Yes alert MENINGEAL SIGNS: Yes no meningeal signs Course Vital Signs: Vital signs: Vital Signs Temperature 97.7 F 04/01/24 20:44 Pulse Rate 75 04/02/24 00:26 Respiratory Rate 18 04/01/24 20:44 Blood Pressure 126/66 04/02/24 00:26 Pulse Oximetry 99 04/02/24 00:26 Oxygen Delivery Me thod Room Air 04/01/24 20:44 MDM - Dizziness Medical Decision Making Patient had extensive workup including lab work, chest x-ray, head CT all of which was essentially benign. Patient was given meclizine, Ativan and Decadron, patient did say that this did improve his dizziness. Patient be discharged home to follow-up with his PCP. Medical Records I reviewed the patient's medical records. Lab Data I reviewed the patient's lab results. 04/01/24 21:17 04/01/24 21:17 Radiology Impressions Chest X-Ray 04/01/24 21:02 IMPRESSION: No acute cardiopulmonary process. Head CT 04/01/24 21:02 IMPRESSION: No large territorial infarct or intracranial bleed. Laboratory Results WBC 9.11 10^3/uL (3.29-11.43) 04/01/24 21:17 RBC 5.21 10^6/uL (3.85-5.65) 04/01/24 21:17 Hgb 15.30 g/dL (11.27-16.99) 04/01/24 21:17 Hct 43.9 % (37-53) 04/01/24 21:17 MCV 84.3 fl (82-101) 04/01/24 21:17 MCH 29.4 pg (27-33) 04/01/24 21:17 MCHC 34.9 g/dL (30-55) 04/01/24 21:17 RDW 13.2 % (12.1-15.1) 04/01/24 21:17 Plt Count 166 10^3/cmm (157-399) 04/01/24 21:17 MPV 11.8 fL (7.4-10.4) H 04/01/24 21:17 Neut % (Auto) 67.1 % 04/01/24 21:17 Lymph % (Auto) 23.1 % 04/01/24 21:17 [place] % (Auto) 6.5 % 04/01/24 21:17 Eos % (Auto) 2.2 % 04/01/24 21:17 Baso % (Auto) 0.9 % 04/01/24 21:17 Neut # (Auto) 6.12 10^3/uL (1.8-7.7) 04/01/24 21:17 Lymph # (Auto) 2.1 10^3/uL (0.8-4.8) 04/01/24 21:17 [place] # (Auto) 0.6 10^3/uL (0.2-0.9) 04/01/24 21:17 Eos # (Auto) 0.2 10^3/uL (0.0-0.8) 04/01/24 21:17 Baso # (Auto) 0.1 10^3/uL (0.0-0.1) 04/01/24 21:17 Nucleated RBC % (auto) 0 % 04/01/24 21:17 Nucleated RBCs # 0.0 /100WBC 04/01/24 21:17 PT 14.90 SECONDS (12.1-14.9) 04/01/24 21:17 INR 1.13 (0.8-1.2) 04/01/24 21:17 Sodium 139 mmol/L (136-145) 04/01/24 21:17 Potassium 4.4 mmol/L (3.5-5.1) 04/01/24 21:17 Chloride 100 mmol/L (98-107) 04/01/24 21:17 Carbon Dioxide 25 mmol/L (22-29) 04/01/24 21:17 Anion Gap 18.4 (5-19) 04/01/24 21:17 BUN 25 mg/dL (8-23) H 04/01/24 21:17 Creatinine 0.8 mg/dL (0.7-1.2) 04/01/24 21:17 GFR Calculation 96.4 mL/min (90-130) 04/01/24 21:17 Glucose 163 mg/dL (65-115) H 04/01/24 21:17 Calculated Osmolality 296 mOsm/kg (285-295) H 04/01/24 21:17 Calcium 9.8 mg/dL (8.5-10.5) 04/01/24 21:17 Magnesium 2.0 mg/dL (1.7-2.3) 04/01/24 21:17 Total Bilirubin 0.6 mg/dL (0.15-1.2) 04/01/24 21:17 AST 12 U/L (0-40) 04/01/24 21:17 ALT 12 U/L (0-41) 04/01/24 21:17 Alkaline Phosphatase 88 U/L (40-130) 04/01/24 21:17 Troponin T Baseline 14 ng/L (0-15) 04/01/24 21:17 Troponin T 120 Minute 14.63 ng/L (0-15) 04/01/24 23:16 Delta Troponin T 0.63 ABS# (0-10) 04/01/24 23:16 Total Protein 7.0 g/dL (6.6-8.7) 04/01/24 21:17 Albumin 4.4 g/dL (3.5-5.2) 04/01/24 21:17 Globulin 2.6 g/dL (1.3-4.6) 04/01/24 21:17 All radiology interpretation(s) finalized by discharge Discharge Plan Discharge Patient Disposition: Home Clinical Impression: Vertigo Condition: Stable Prescriptions: No Action clopidogrel 75 mg tablet 75 mg PO DAILY Qty: 90 6RF furosemide 40 mg tablet 40 mg PO QAM Qty: 90 3RF Hold Instructions: Resume on 10/02/22. losartan 100 mg tablet 100 mg PO QAM Qty: 90 6RF metoprolol tartrate 25 mg tablet 25 mg PO QAM Qty: 90 6RF nitroglycerin [Nitrostat] 0.4 mg tablet, sublingual 0.4 mg SUBLINGUAL Q5M PRN (Reason: chest pain) 90 Days Qty: 25 3RF Rx Instructions: do not exceed 3 doses per episode Xarelto 20 mg tablet 20 mg PO QAM Qty: 90 6RF simvastatin 40 mg tablet 40 mg PO QAM Qty: 90 3RF spironolactone 25 mg tablet 25 mg PO QAM Qty: 90 1RF cephalexin 500 mg capsule 500 mg PO BID Qty: 14 0RF ciprofloxacin HCl 500 mg tablet 500 mg PO Q12H Qty: 14 0RF miscellaneous medical supply Misc See Rx Instructions miscellaneous .COMPLEX Qty: 1 4RF Rx Instructions: Please issue CPAP supplies including mask, tubing, filters, water reservoirs, and any other necessary supplies. Humulin R U-500 (Conc) Insulin 500 unit/mL solution See Rx Instructions .ROUTE .COMPLEX Qty: 20 6RF Rx Instructions: 90 units in the am, 20 units at noon and 90 units at bedtime Farxiga 10 mg tablet See Rx Instructions .ROUTE .COMPLEX Qty: 90 1RF Dose Instruction: TAKE 1 TABLET BY MOUTH every morning Rx Instructions: TAKE 1 TABLET BY MOUTH every morning aspirin [Adult Aspirin Regimen] 81 mg tablet,delayed release (DR/EC) 81 mg PO DAILY PRN (Reason: unknown) ibuprofen 200 mg Tablet 400 - 600 mg PO Q6H PRN (Reason: Pain) Ozempic 0.25 mg or 0.5 mg (2 mg/3 mL) pen injector 0.5 mg SUBCUT Q7D Rx Instructions: on saturday tramadol 50 mg tablet 50 mg PO Q4-5H PRN (Reason: Pain, Moderate) Discharge Orders: Discharge ED (Routine); Ordered 04/02/24 Ordered By: Josh Neri Referrals: Kermit Fields DO [Primary Care Provider] - 1 week Patient Instructions: Vertigo (ED) Activity Restrictions/Additional Instructions: Please follow-up with your family practitioner within next 7 to 10 days for further evaluation and testing. You may benefit from being referred to a neurologist and/or ear nose and throat doctor for your vertigo. Thank you for choosing [facility] for your healthcare needs today. Please realize that you were seen in the emergency department and that we are providing you with an emergency medical screening exam and this may not be a complete and all exclusive of all testing and/or medical workup we may need to determine your element or severity of your illness. It is very important that you follow-up as instructed with your primary care provider or specialist for the additional evaluation and to discuss your medical treatment plan. You may return to the emergency department should you have concerns or if your condition changes or worsens in any way. Coding Level of Care Code ED Level Glass Vial Filler for Rupa Monique
[2024-04-01] MEDS: sodium chloride 0.9% 1,000 ML 999 ML IV (21:11)
[2024-04-01] MEDS: ondansetron 2 mg/ML SDV 2 mL 4 MG IVP (21:11)
[2024-04-01 21:15] VITALS: BP 131/75; PULSE 73; O2SAT 96
[2024-04-01 21:24] LABS: Basophils # 0.1 10^3/uL (0.0-0.1); Basophils % 0.9 %; Eosinophils # 0.2 10^3/uL (0.0-0.8); Eosinophils % 2.2 %; Hematocrit 43.9 % (37-53); Lymphocytes # 2.1 10^3/uL (0.8-4.8); Lymphocytes % 23.1 %; Mean Corpuscular HGB Conc 34.9 g/dL (30-55); Mean Corpuscular Hemoglobin 29.4 pg (27-33); Mean Corpuscular Volume 84.3 fl (82-101); Mean Platelet Volume 11.8 fL (7.4-10.4); Monocytes # 0.6 10^3/uL (0.2-0.9); Monocytes % 6.5 %; Neutrophils # 6.12 10^3/uL (1.8-7.7); Neutrophils % 67.1 %; Nucleated Red Blood Cells % 0 %; Platelet Count 166 10^3/cmm (157-399); Red Blood Count 5.21 10^6/uL (3.85-5.65); Red Cell Distribution Width 13.2 % (12.1-15.1); White Blood Count 9.11 10^3/uL (3.29-11.43)
[2024-04-01 21:34] VITALS: BP 131/76; PULSE 63; O2SAT 97
[2024-04-01 21:36] LABS: INR 1.13 (0.8-1.2)
[2024-04-01 21:43] LABS: Troponin(5th) Baseline 14 ng/L (0-15)
[2024-04-01 21:57] LABS: Alanine Aminotransferase 12 U/L (0-41); Albumin Level 4.4 g/dL (3.5-5.2); Alkaline Phosphatase 88 U/L (40-130); Anion Gap 18.4 (5-19); Aspartate Amino Transferase 12 U/L (0-40); Blood Urea Nitrogen 25 mg/dL (8-23); Calcium 9.8 mg/dL (8.5-10.5); Carbon Dioxide 25 mmol/L (22-29); Chloride 100 mmol/L (98-107); Creatinine Clr Calc Pharmacy 127.9923; Globulin 2.6 g/dL (1.3-4.6); Glomerular Filtration Rate 96.4 mL/min (90-130); Glucose 163 mg/dL (65-115); Osmolality Calculated 296 mOsm/kg (285-295); Potassium 4.4 mmol/L (3.5-5.1); Sodium 139 mmol/L (136-145); Total Bilirubin 0.6 mg/dL (0.15-1.2)
[2024-04-01] MEDS: meclizine 25 mg tablet 50 MG PO (22:24)
[2024-04-01 22:27] VITALS: BP 127/91; PULSE 75; O2SAT 98
[2024-04-01 22:53] VITALS: BP 127/91; PULSE 65; O2SAT 98
--- NOTE | 2024-04-01 23:11 | ECG_ITS ---
[facility] Test Date: 2024-04-01 Pat Name: Adrian Hernandez Department: Room: Gender: Male Service Developer: : 1955 Requested By: Josh Neri Order Number: [id number] Condon MD: Jayjay Smith M.D. Measurements Intervals [place] Rate: 75 P: 0 AL: 0 QRS: 37 QRSD: 93 T: 36 QT: 382 QTc: 427 Interpretive Statements ATRIAL FIBRILLATION Compared to ECG 04/01/2024 21:10:14 No significant changes Electronically Signed On 04-02-2024 8:04:58 CDT by Jayjay Smith M.D. [id number]
[2024-04-01 23:40] LABS: Troponin 5 2HR 14.63 ng/L (0-15); Troponin 5 2HR Delta 0.63 ABS# (0-10)
[2024-04-01] MEDS: LORazepam 2 mg/mL INJ 1 mL 1 MG IVP (23:53)
[2024-04-01] MEDS: dexamethasone 10 mg/mL INJ IVP (23:54)
[2024-04-01 23:56] VITALS: BP 114/67; PULSE 67; O2SAT 98
[2024-04-02 00:26] VITALS: BP 126/66; PULSE 75; O2SAT 99
[2024-04-02 00:56] VITALS: BP 126/66; PULSE 85; O2SAT 99
== END 2024-04-02 01:00 | disposition home or self-care (01) ==
PROVIDERS: Emergency Provider Emergency Medicine; PCP Family Medicine
DX: R42 Dizziness and giddiness (principal); Z79.02 Long term (current) use of antithrombotics/antiplatelets; Z79.82 Long term (current) use of aspirin; Z79.85 Long-term (current) use of injectable non-insulin antidiabetic drugs; Z79.4 Long term (current) use of insulin; E11.22 Type 2 diabetes mellitus with diabetic chronic kidney disease; I12.9 Hypertensive chronic kidney disease with stage 1 through stage 4 chronic kidney disease, or unspecified chronic kidney disease; N18.9 Chronic kidney disease, unspecified; Z87.891 Personal history of nicotine dependence
CPT/HCPCS: 36415; 70450; 71045; 80053; 83735; 84484; 85025; 85610; 93005; 96361; 96374; 96375; 99285; J1100; J2060; J2405; J7030; J8597

== ENCOUNTER → 2024-04-21 14:12 | Outpatient (BNVA) | payer MEDICARE, SELFPAY | PROVIDERS: PCP Family Medicine; Visit Provider Podiatrist Foot & Ankle Surgery | DX: L60.3 Nail dystrophy (principal); L84 Corns and callosities; G62.9 Polyneuropathy, unspecified; E11.42 Type 2 diabetes mellitus with diabetic polyneuropathy; Z79.4 Long term (current) use of insulin | CPT/HCPCS: 11055; 11721; 99203 ==

== ENCOUNTER → 2024-06-05 10:02 | Outpatient (BNVA) | payer MEDICARE, SELFPAY | PROVIDERS: PCP Family Medicine; Visit Provider Nurse Practitioner Family | DX: I48.11 Longstanding persistent atrial fibrillation (principal); Z79.01 Long term (current) use of anticoagulants; I25.10 Atherosclerotic heart disease of native coronary artery without angina pectoris; Z87.891 Personal history of nicotine dependence; I13.10 Hypertensive heart and chronic kidney disease without heart failure, with stage 1 through stage 4 chronic kidney disease, or unspecified chronic kidney disease; E11.22 Type 2 diabetes mellitus with diabetic chronic kidney disease; Z79.4 Long term (current) use of insulin; N18.9 Chronic kidney disease, unspecified | CPT/HCPCS: 99214 ==

== ENCOUNTER → 2024-06-15 13:00 | Outpatient (BNVA) | payer MEDICARE, SELFPAY | PROVIDERS: PCP Family Medicine; Visit Provider Family Medicine | DX: Z12.5 Encounter for screening for malignant neoplasm of prostate (principal); R23.3 Spontaneous ecchymoses; Z79.01 Long term (current) use of anticoagulants | CPT/HCPCS: 85027; G0103 ==

== ENCOUNTER → 2024-06-23 13:57 | Outpatient (BNVA) | payer MEDICARE, SELFPAY | PROVIDERS: PCP Family Medicine; Visit Provider Podiatrist Foot & Ankle Surgery | DX: L60.3 Nail dystrophy (principal); L84 Corns and callosities; G62.9 Polyneuropathy, unspecified; E11.42 Type 2 diabetes mellitus with diabetic polyneuropathy; Z79.4 Long term (current) use of insulin | CPT/HCPCS: 11055; 11721 ==

== ENCOUNTER 2024-08-14 17:07 | Inpatient (IN) | payer MEDICARE, SELFPAY ==
[2024-08-14] VITALS (7 sets, daily range): BP systolic 103–146; BP diastolic 51–82; PULSE 79–101; RESP 12–26; TEMP 36.6; O2SAT 94–100; BMI 39.6
--- NOTE | 2024-08-14 17:17 | XRR_ITS ---
PROCEDURE INFORMATION: Exam: XR Chest Exam date and time: 08/14/2024 5:47 PM Age: 69 years old Clinical indication: Pain; Chest pressure; Prior surgery; Surgery date: 6+ months; Surgery type: Pacemaker; Additional info: Chest pain TECHNIQUE: Imaging protocol: Radiologic exam of the chest. Views: 1 view. COMPARISON: CR XR chest 1V portable [id number] 04/01/2024 9:19 PM FINDINGS: Lungs: Unremarkable. No consolidation. Pleural spaces: Unremarkable. No pleural effusion. No pneumothorax. Heart/Mediastinum: Aortic atherosclerotic calcifications. Bones/joints: Unremarkable. XR/XR chest 1V portable [id number] IMPRESSION: No acute findings.
--- NOTE | 2024-08-14 17:17 | ECG_ITS ---
[facility] Test Date: 2024-08-14 Pat Name: Adrian Hernandez Department: Room: Gender: Male Political Aide: : 1955 Requested By: Britt Gauthier Order Number: [id number] T[place] MD: Keesha Alfaro M.D. Measurements Intervals [place] Rate: 100 P: 0 FL: 0 QRS: 61 QRSD: 97 T: 55 QT: 357 QTc: 462 Interpretive Statements ATRIAL FIBRILLATION WITH RAPID VENTRICULAR RESPONSE WITH ABERRANT CONDUCTION OR VENTRICULAR PREMATURE COMPLEXES LOW QRS VOLTAGE IN PRECORDIAL LEADS [QRS DEFLECTION < 1.0 mV IN CHEST LEADS] ABNORMAL RHYTHM ECG Compared to ECG 04/01/2024 23:11:55 Ventricular premature complex(es) now present Aberrant conduction of supraventricular beat(s) now present Low QRS voltage now present Electronically Signed On 08-14-2024 21:43:27 MOLD STRIPPER by Keesha Alfaro M.D. [email or web address]
--- NOTE | 2024-08-14 17:21 | W.ED.CHESTPA ---
HPI - Chest Pain General: Chief Complaint: Chest Pain Stated Complaint: chest pain Time Seen by Provider: 08/14/24 17:14 History of Present Illness: 69-year-old female who with a history of obstructive sleep apnea, diastolic dysfunction, atrial fibrillation with chronic anticoagulation on Eliquis, hypertension and chronic kidney disease who presents emergency room with chest pain. Started about midday today. He has taken nitro without relief. He has a history of CHF and he does state he has had a stent in the past as well. Related Data Home Medications Medication Instructions Recorded Confirmed aspirin 81 mg tablet,delayed 81 mg PO DAILY PRN unknown 03/06/23 06/23/24 release (Adult Aspirin Regimen) ibuprofen 200 mg tablet 400 - 600 mg PO Q6H PRN Pain 03/06/23 06/23/24 semaglutide 0.25 mg or 0.5 mg (2 0.5 mg SUBCUT Q7D 03/06/23 06/23/24 mg/3 mL) subcutaneous pen injector (Ozempic) tramadol 50 mg tablet 50 mg PO Q4-5H PRN Pain, Moderate 04/22/23 06/23/24 Previous Rx's Medication Instructions Recorded miscellaneous medical supply See Rx Instructions miscellaneous 05/09/22 .COMPLEX #1 ea insulin regular hum U-500 conc 500 See Rx Instructions .Route 08/15/23 unit/mL subcutaneous soln (Humulin .COMPLEX #20 mL R U-500 (Concentrated) Insulin) dapagliflozin propanediol 10 mg See Rx Instructions .Route 11/08/23 tablet (Farxiga) .COMPLEX #90 tabs clopidogrel 75 mg tablet 75 mg PO DAILY #90 tabs 11/25/23 furosemide 40 mg tablet 40 mg PO QAM #90 tabs 11/25/23 losartan 100 mg tablet 100 mg PO QAM #90 tabs 11/25/23 rivaroxaban 20 mg tablet (Xarelto) 20 mg PO QAM #90 tabs 11/25/23 simvastatin 40 mg tablet 40 mg PO QAM #90 tabs 11/25/23 varicella-zoster glycoE [id number] 0.5 ml IM ONCE #1 ea 04/06/24 adj(PF) 50 mcg/0.5 mL IM susp, kit (Shingrix (PF)) diabetic shoes with 3 inserts #1 ea 04/21/24 metoprolol tartrate 25 mg tablet 25 mg PO BID #180 tabs 06/05/24 nitroglycerin 0.4 mg sublingual 0.4 mg sublingual Q5M PRN chest 06/15/24 tablet (Nitrostat) pain 3 months #25 tabs spironolactone 25 mg tablet 25 mg PO QAM #90 tabs 06/15/24 meclizine 25 mg tablet See Rx Instructions .Route 07/27/24 .COMPLEX #60 tabs Allergies Allergy/AdvReac Type Severity Reaction Status Date / Time No Known Allergies Allergy Verified 06/23/24 14:01 Review of Systems Narrative: Constitutional symptoms: Negative except as documented in HPI. Skin symptoms: Negative except as documented in HPI. Eye symptoms: Negative except as documented in HPI. ENMT symptoms: Negative except as documented in HPI. Respiratory symptoms: Negative except as documented in HPI. Cardiovascular symptoms: Negative except as documented in HPI. Gastrointestinal symptoms: Negative except as documented in HPI. Genitourinary symptoms: Negative except as documented in HPI. Musculoskeletal symptoms: Negative except as documented in HPI. Neurologic symptoms: Negative except as documented in HPI. Psychiatric symptoms: Negative except as documented in HPI. Endocrine symptoms: Negative except as documented in HPI. PFSH ED PFSH: Medical History Coronary artery disease Morbid obesity Diabetes HTN (hypertension) CKD (chronic kidney disease) Atrial fibrillation Diastolic dysfunction ARELY on CPAP Anticoagulant long-term use Surgical History S/P PTCA (percutaneous transluminal coronary angioplasty) S/P gastric bypass Family History Father Diabetes Social History Smoking and tobacco/nicotine status: former use of tobacco/nicotine Alcohol intake: never Household members: spouse Marital status: Physical Exam Narrative: EXAM NARRATIVE: General: Alert, no acute distress. Skin: Warm, dry. Head: Normocephalic, atraumatic. Neck: Supple, trachea midline. Eye: Extraocular movements are intact. Ears, nose, mouth and throat: mucosa moist. Cardiovascular: Regular, Normal peripheral perfusion. Respiratory: Lungs are clear to auscultation, respirations are non-labored, breath sounds are equal, Symmetrical chest wall expansion. Gastrointestinal: Soft, Nontender, Non distended Musculoskeletal: Normal ROM, no deformity. Neurological: Alert and oriented, No focal neurological deficit observed. Psychiatric: Cooperative, appropriate mood & affect. Course Vital Signs: Vital signs: Vital Signs Temperature 97.9 F 08/14/24 17:08 Pulse Rate 97 08/14/24 18:26 Respiratory Rate 22 H 08/14/24 20:28 Blood Pressure 126/71 08/14/24 18:26 Pulse Oximetry 98 08/14/24 18:48 Oxygen Delivery Me thod Room Air 08/14/24 17:08 MDM - Chest Pain Medical Decision Making Differential diagnosis for patient with chest pain includes but is not limited to and based on the above HPI, review of systems and physical exam: Pneumonia. unstable angina. angina. Acute coronary syndrome / PA. Pulmonary embolism. Costochondritis / musculoskeletal. Pleurisy. Pericarditis. Esophageal spasm. Pancreatis. Cholecystitis. Orders placed to evaluate differential diagnosis based on the above differential, HPI and physical exam EKG: Time 1708. Atrial fibrillation with controlled rate, No ST-T changes, no ectopy, This was reviewed and interpreted by myself the ER physician at 1710. Chest x-ray: No acute process. No infiltrate. No pneumothorax. This was reviewed and interpreted by myself the emergency room physician. I also reviewed the radiology report. Lab Review: Laboratory results were reviewed and interpreted by myself the emergency room physician. Mild leukocytosis with a white count of 13,000. Hemoglobin normal at 15. BUN and creatinine around baseline at 22 and 0.9. Initial troponin is slightly elevated at 17. Repeat is 21. Only if increase of 4 but given his symptoms and his history I believe he needs to be admitted for observation. He continues to have chest pain. I reviewed the patient's medical record. CT of the chest with PE protocol. Negative for PE. Scattered mediastinal lymph nodes. Coronary calcifications. Additional findings and radiology report. This was reviewed and interpreted by myself the emergency room physician. I also reviewed the radiology report. HEART Pathway for Early Discharge in Acute Chest Pain from [employer] on 08/14/2024 * All calculations should be rechecked by clinician prior to use RESULT SUMMARY: 7 points HEART Pathway Score High risk 12-65% 30-day MACE Cardiology consultation and admission recommended. Further testing indicated. INPUTS: History ?> 2 = Highly suspicious EKG ?> 0 = Normal Age ?> 2 = >=5 Risk factors ?> 2 = >= risk factors or history of atherosclerotic disease Initial troponin ?> 1 = 1-3x normal limit Reexamination: Patient has continued to have intermittent chest pain. Morphine has helped some. His blood pressure was too low to try nitro at the time he started having chest pain again. Morphine helped but at the time of admission he saying his chest pain is coming back. Consultation: I spoke with Dr. Neri who is on-call for the hospitalist service who agrees to admission. Adding heparin drip and Nitropaste per recommendations. Consultation: I spoke to Dr. Alfaro who is with cardiology and who will see the patient tomorrow. Assessment and plan: Chest pain Coronary artery disease Atrial fibrillation Chronic anticoagulation on Eliquis ?Morphine improved pain some but is dry pressure. Trying 0.5 mg Dilaudid. -I discussed the patient with the hospitalist on-call who is admitting the patient. - Discussed findings and plan with patient. Answered any questions. - All laboratory values were reviewed and interpreted personally by myself, the ER physician - All imaging was reviewed and interpreted personally by myself, the ER physician. - Evaluation and treatment of this problem were appropriate in the emergency setting Lab Data 08/14/24 17:30 08/14/24 17:30 Radiology Impressions Chest X-Ray 08/14/24 17:17 IMPRESSION: No acute findings. Chest CTA 08/14/24 18:24 IMPRESSION: 1. Negative for pulmonary embolus. 2. Scattered subcentimeter short axis nonspecific mediastinal lymph nodes. 3. Coronary artery atherosclerotic calcifications. 4. Hepatic steatosis. 5. Multilevel bridging degenerative calcifications throughout the spine. Laboratory Results WBC 13.57 10^3/uL (3.29-11.43) H 08/14/24 17:30 RBC 5.41 10^6/uL (3.85-5.65) 08/14/24 17:30 Hgb 15.70 g/dL (11.27-16.99) 08/14/24 17:30 Hct 44.9 % (37-53) 08/14/24 17:30 MCV 83.0 fl (82-101) 08/14/24 17:30 MCH 29.0 pg (27-33) 08/14/24 17:30 MCHC 35.0 g/dL (30-55) 08/14/24 17:30 RDW 13.1 % (12.1-15.1) 08/14/24 17:30 Plt Count 199 10^3/cmm (157-399) 08/14/24 17:30 MPV 11.3 fL (7.4-10.4) H 08/14/24 17:30 Neut % (Auto) 77.4 % 08/14/24 17:30 Lymph % (Auto) 13.8 % 08/14/24 17:30 [place] % (Auto) 7.0 % 08/14/24 17:30 Eos % (Auto) 0.7 % 08/14/24 17:30 Baso % (Auto) 0.7 % 08/14/24 17:30 Neut # (Auto) 10.49 10^3/uL (1.8-7.7) H 08/14/24 17:30 Lymph # (Auto) 1.9 10^3/uL (0.8-4.8) 08/14/24 17:30 [place] # (Auto) 1.0 10^3/uL (0.2-0.9) H 08/14/24 17:30 Eos # (Auto) 0.1 10^3/uL (0.0-0.8) 08/14/24 17:30 Baso # (Auto) 0.1 10^3/uL (0.0-0.1) 08/14/24 17:30 Nucleated RBC % (auto) 0 % 08/14/24 17: Nucleated RBCs # 0.0 /100WBC 08/14/24 17:30 Sodium 139 mmol/L (136-145) 08/14/24 17:30 Potassium 4.5 mmol/L (3.5-5.1) 08/14/24 17: Chloride 100 mmol/L (98-107) 08/14/24 17: Carbon Dioxide 26 mmol/L (22-29) 08/14/24 17:30 Anion Gap 17.5 (5-19) 08/14/24 17:30 BUN 22 mg/dL (8-23) 08/14/24 17:30 Creatinine 0.9 mg/dL (0.7-1.2) 08/14/24 17:30 GFR Calculation 83.9 mL/min (90-130) L 08/14/24 17:30 Glucose 115 mg/dL (65-115) 08/14/24 17:30 Calculated Osmolality 292 mOsm/kg (285-295) 08/14/24 17:30 Lactic Acid 2.5 mmol/L (0.5-2.2) H 08/14/24 17:30 Lactic Acid (Sepsis) 2.4 mmol/L (0.5-2.2) H 08/14/24 20:03 Calcium 10.2 mg/dL (8.5-10.5) 08/14/24 17:30 Total Bilirubin 0.9 mg/dL (0.15-1.2) 08/14/24 17:30 AST 21 U/L (0-40) 08/14/24 17:30 ALT 21 U/L (0-41) 08/14/24 17:30 Alkaline Phosphatase 93 U/L (40-130) 08/14/24 17:30 Troponin T Baseline 17 ng/L (0-15) H 08/14/24 17:30 Troponin T 120 Minute 21.60 ng/L (0-15) H 08/14/24 19:33 Delta Troponin T 4.60 ABS# (0-10) 08/14/24 19:33 NT-Pro-B Natriuret Pep 424 pg/mL (0-125) H 08/14/24 17:30 Total Protein 8.1 g/dL (6.6-8.7) 08/14/24 17:30 Albumin 4.5 g/dL (3.5-5.2) 08/14/24 17:30 Globulin 3.6 g/dL (1.3-4.6) 08/14/24 17:30 Coronavirus (PCR) Negative (Negative) 08/14/24 17:55 Influenza A (PCR) Negative (Negative) 08/14/24 17:55 Influenza Type B (PCR) Negative (Negative) 08/14/24 17:55 RSV (PCR) Negative (Negative) 08/14/24 17:55 All radiology interpretation(s) finalized by discharge Clincial Decision Support The following clinical decision support tools were used to aid in care of the patient HEART Score -> History: Highly Suspicious, EKG: Normal, Age: 65 or more yrs, Risk Factors: >/=3 Risk Factors, Troponin: Baseline Trop 16-45 ng/L. Resulting HEART Score: 7. Discharge Plan Discharge Patient Disposition: Placed in Observation Clinical Impression: Chest pain, Coronary artery disease Coding Level of Care Code ED Volcanology Professor for Rupa Monique
[2024-08-14] MEDS: aspirin 81 mg Chew Tablet 324 MG PO (17:31)
[2024-08-14] MEDS: ondansetron 2 mg/ML SDV 2 mL 4 MG IVP (17:32)
[2024-08-14 17:42] LABS: Basophils # 0.1 10^3/uL (0.0-0.1); Basophils % 0.7 %; Eosinophils # 0.1 10^3/uL (0.0-0.8); Eosinophils % 0.7 %; Hematocrit 44.9 % (37-53); Lymphocytes # 1.9 10^3/uL (0.8-4.8); Lymphocytes % 13.8 %; Mean Platelet Volume 11.3 fL (7.4-10.4); Neutrophils # 10.49 10^3/uL (1.8-7.7); Neutrophils % 77.4 %; Nucleated Red Blood Cells % 0 %; Platelet Count 199 10^3/cmm (157-399); Red Blood Count 5.41 10^6/uL (3.85-5.65); Red Cell Distribution Width 13.1 % (12.1-15.1); White Blood Count 13.57 10^3/uL (3.29-11.43)
[2024-08-14] MEDS: morphine 4 mg/mL SDV 1 mL 2 MG IVP (18:04)
[2024-08-14 18:07] LABS: Lactic Sepsis W/Reflex 2.5 mmol/L (0.5-2.2)
[2024-08-14 18:10] LABS: Troponin(5th) Baseline 17 ng/L (0-15)
[2024-08-14 18:18] LABS: Alanine Aminotransferase 21 U/L (0-41); Albumin Level 4.5 g/dL (3.5-5.2); Alkaline Phosphatase 93 U/L (40-130); Anion Gap 17.5 (5-19); Aspartate Amino Transferase 21 U/L (0-40); Blood Urea Nitrogen 22 mg/dL (8-23); Calcium 10.2 mg/dL (8.5-10.5); Carbon Dioxide 26 mmol/L (22-29); Chloride 100 mmol/L (98-107); Creatinine Clr Calc Pharmacy 110.5996; Globulin 3.6 g/dL (1.3-4.6); Glomerular Filtration Rate 83.9 mL/min (90-130); Glucose 115 mg/dL (65-115); NT Pro B Type Natriuretic Pept 424 pg/mL (0-125); Osmolality Calculated 292 mOsm/kg (285-295); Potassium 4.5 mmol/L (3.5-5.1); Sodium 139 mmol/L (136-145); Total Bilirubin 0.9 mg/dL (0.15-1.2); Total Protein 8.1 g/dL (6.6-8.7)
--- NOTE | 2024-08-14 18:24 | CTR_ITS ---
PROCEDURE INFORMATION: Exam: CTA Chest With Contrast Exam date and time: 08/14/2024 6:59 PM Age: 69 years old Clinical indication: Pain; Dyspnea and shortness of breath; Prior surgery; Surgery date: 6+ months; Surgery type: Coronary stents; Patient HX: C/O central chest pressure with SOB and dyspnea. ; Additional info: Chest pain TECHNIQUE: Imaging protocol: Computed tomographic angiography of the chest with contrast. Exam focused on the arteries. 3D rendering (Not supervised by radiologist): MIP and/or 3D reconstructed images were created by the technologist. Radiation optimization: All CT scans at this facility use at least one of these dose optimization techniques: automated exposure control; mA and/or kV adjustment per patient size (includes targeted exams where dose is matched to clinical indication); or iterative reconstruction. Contrast material: OMNI 350; Contrast volume: 80 ml; Contrast route: INTRAVENOUS (IV); COMPARISON: CT chest abdpel w/*[id number] 03/06/2023 2:54 PM RADIATION DOSE METRICS: Total DLP (mGy-cm): 532.08 FINDINGS: Pulmonary arteries: Normal. No pulmonary emboli. Aorta: Unremarkable. No aortic aneurysm. No aortic dissection. Lungs: Unremarkable. No consolidation. No masses. Pleural spaces: Unremarkable. No pneumothorax. No pleural effusion. Heart: Unremarkable. No cardiomegaly. No pericardial effusion. Coronary arteries: Coronary artery atherosclerotic calcifications. Lymph nodes: Scattered subcentimeter short axis nonspecific mediastinal lymph nodes. Liver: Hepatic steatosis. Bones/joints: Multilevel bridging degenerative calcifications throughout the spine. Soft tissues: Gastric surgical sutures. CT/CT angio chest PE protcl [id number] IMPRESSION: 1. Negative for pulmonary embolus. 2. Scattered subcentimeter short axis nonspecific mediastinal lymph nodes. 3. Coronary artery atherosclerotic calcifications. 4. Hepatic steatosis. 5. Multilevel bridging degenerative calcifications throughout the spine.
[2024-08-14 18:28] LABS: Reflex Lactate Order REFLEX LACTIC ORDERD
[2024-08-14] MEDS: morphine 4 mg/mL SDV 1 mL IVP (18:48)
[2024-08-14 19:00] LABS: Covid PCR NEGATIVE (Negative); Influenza A NEGATIVE (Negative); Influenza B NEGATIVE (Negative); Respiratory Syncytial Virus Ce NEGATIVE (Negative)
[2024-08-14] MEDS: iohexol 350 mg/mL 500 mL Btl (per mL) IV (19:01)
[2024-08-14] MEDS: HYDROmorphone 1 mg/mL INJ 1 mL 0.5 MG IVP (20:28)
[2024-08-14 20:30] LABS: Lactic Acid level (Lactate) 2.4 mmol/L (0.5-2.2)
--- NOTE | 2024-08-14 20:40 | P.HP_ITS ---
Providers/Chief Complaint 2 Primary Care Provider: Kermit Fields DO Chief Complaint: chest pain History of Present Illness Adrian Hernandez is a 69 year old male with history of salvage coronary to disease with previous template done by Dr. Vicente in the past, presenting with chief complaint chest pain. Patient is stating that he was sitting in a chair today around 2:30 PM when he start experiencing chest pain he describing his pain as pressure-like sensation, cramping in his chest radiating towards his left arm associated with nausea. He has not experienced vomiting, fever, diarrhea but he is endorsing shortness of breath. Workup in the ER is unremarkable EKG without acute changes however he is complaining of active chest pain required opioids to control his pain. I requested cardiology consult through the ER patient will need an angiogram. I have requested heparin drip and Nitropaste for now. Review of Systems 2 Const: Denies: fever(s) Eyes: Denies: change in vision ENMT: Denies: throat pain Card: Reports: chest pain Resp: Reports: dyspnea Medications/Allergies Home Medications Medication Instructions Recorded Confirmed Last Taken Type miscellaneous medical supply See Rx Instructions miscellaneous 05/09/22 06/23/24 Unknown Rx .COMPLEX #1 ea aspirin 81 mg tablet,delayed 81 mg PO DAILY PRN unknown 03/06/23 06/23/24 04/08/23 History release (Adult Aspirin Regimen) ibuprofen 200 mg tablet 400 - 600 mg PO Q6H PRN Pain 03/06/23 06/23/24 04/08/23 History semaglutide 0.25 mg or 0.5 mg (2 0.5 mg SUBCUT Q7D 03/06/23 06/23/24 04/14/23 History mg/3 mL) subcutaneous pen injector (Ozempic) tramadol 50 mg tablet 50 mg PO Q4-5H PRN Pain, Moderate 04/22/23 06/23/24 04/16/23 History insulin regular hum U-500 conc 500 See Rx Instructions .Route 08/15/23 06/23/24 Unknown Rx unit/mL subcutaneous soln (Humulin .COMPLEX #20 mL R U-500 (Concentrated) Insulin) dapagliflozin propanediol 10 mg See Rx Instructions .Route 11/08/23 06/23/24 Unknown Rx tablet (Farxiga) .COMPLEX #90 tabs clopidogrel 75 mg tablet 75 mg PO DAILY #90 tabs 11/25/23 06/23/24 Unknown Rx furosemide 40 mg tablet 40 mg PO QAM #90 tabs 11/25/23 06/23/24 Unknown Rx losartan 100 mg tablet 100 mg PO QAM #90 tabs 11/25/23 06/23/24 Unknown Rx rivaroxaban 20 mg tablet (Xarelto) 20 mg PO QAM #90 tabs 11/25/23 06/23/24 Unknown Rx simvastatin 40 mg tablet 40 mg PO QAM #90 tabs 11/25/23 06/23/24 Unknown Rx varicella-zoster glycoE [id number] 0.5 ml IM ONCE #1 ea 04/06/24 06/23/24 Unknown Rx adj(PF) 50 mcg/0.5 mL IM susp, kit (Shingrix (PF)) diabetic shoes with 3 inserts #1 ea 04/21/24 06/23/24 Unknown Rx metoprolol tartrate 25 mg tablet 25 mg PO BID #180 tabs 06/05/24 06/23/24 Unknown Rx nitroglycerin 0.4 mg sublingual 0.4 mg sublingual Q5M PRN chest 06/15/24 06/23/24 Unknown Rx tablet (Nitrostat) pain 3 months #25 tabs spironolactone 25 mg tablet 25 mg PO QAM #90 tabs 06/15/24 06/23/24 Unknown Rx meclizine 25 mg tablet See Rx Instructions .Route 07/27/24 Unknown Rx .COMPLEX #60 tabs Allergies Allergy/AdvReac Type Severity Reaction Status Date / Time No Known Allergies Allergy Verified 06/23/24 14:01 PFSH Acute 2 PFSH: Medical History Coronary artery disease Morbid obesity Diabetes HTN (hypertension) CKD (chronic kidney disease) Atrial fibrillation Diastolic dysfunction ARELY on CPAP Anticoagulant long-term use Surgical History S/P PTCA (percutaneous transluminal coronary angioplasty) S/P gastric bypass Family History Father Diabetes Social History Smoking and tobacco/nicotine status: former use of tobacco/nicotine Alcohol intake: never Household members: spouse Marital status: Vitals/I&O/Wt Last Vital Signs Temp 97.9 F 08/14/24 17:08 Pulse 97 08/14/24 18:26 Resp 22 H 08/14/24 20:28 BP 126/71 08/14/24 18:26 Pulse Ox 98 08/14/24 18:48 O2 Del Method Room Air 08/14/24 17:08 Weight last 48 hrs Weight 132.449 kg Physical Exam 2 Narrative: GCS 15 Nonfocal neuroexam Complaining of chest pain Currently on room air saturating 100% S1, S2 variable A-fib without RVR Awake and alert Morbidly obese Signs of mild fluid overload No active crackles, currently doing well on room air Data 08/14/24 17:30 08/14/24 17:30 A&P Assessment and plan (1) Diastolic dysfunction: (2) Atrial fibrillation: Qualifiers: Atrial fibrillation type: longstanding persistent Qualified Code(s): I 48.11 - Longstanding persistent atrial fibrillation (3) Unstable angina: (4) Anticoagulant long-term use: (5) Diabetes: (6) CKD (chronic kidney disease): Qualifiers: Chronic kidney disease stage: unspecified stage Qualified Code(s): N 18.9 - Chronic kidney disease, unspecified (7) ARELY on CPAP: Plan Unstable angina Typical chest pain considering underlying coronary disease with 1 stent in the past Patient is diabetic Considering patient's typical symptoms he will likely need an angiogram Dr. Alfaro consulted Will start patient on heparin drip Will put Nitropaste on Serial troponin and EKG Will keep patient n.p.o. for midnight Hypertension: Hypertensive urgency optimize antihypertensive regimen I am hoping with morphine and Nitropaste his blood pressure will improve Type II diabetic: Continue insulin sliding scale for now A-fib without RVR: Hold off on anticoagulating agent Chronic kidney disease No acute worsening Cardiac consistent carb diet for now and then n.p.o. after midnight Full code Attestations 2 Medical Necessity Statement*: More than 2 midnights anticipated Diagnoses Diastolic dysfunction I51.89 Longstanding persistent atrial fibrillation I48.11 Atrial fibrillation type: longstanding persistent Unstable angina I20.0 Anticoagulant long-term use Z79.01 Diabetes E11.9 Chronic kidney disease, unspecified CKD stage N18.9 Chronic kidney disease stage: unspecified stage ARELY on CPAP G47.33; Z99.89
--- NOTE | 2024-08-14 22:04 | P.CONIM_ITS ---
Providers/Reason For Consult 2 Consulting Physician/Specialty*: Storm Alfaro MD/cardiology Reason for Consult*: Patient with a chest pain/ASHD Requesting Physician: Dr. Neri Attending Physician: Valerie Neri MD Primary Care Provider: Kermit Fields DO History of Present Illness History of Present Illness Adrian Hernandez is a 69 year old male with a history of atherosclerotic heart disease, he is being admitted to hospital through the emergency room where he present with complaints of chest pain since 3:00 this afternoon. Cardiology consult is requested for further cardiac evaluation recommendations. Mr. Hernandez is has a longstanding history of atherosclerotic heart diseas. He had his initial PCI in the PLV branch of the right circumflex artery in 2014. He had a mid LAD stent couple of years later. He had a multiple angiograms and stress testing since then. Most recently, he had a cardiac irradiation in September 2022. At that time, he was found to have patent stented segments in the LAD and the PLV branch. Mild disease in the other vessels. Based on the angiogram findings, it was opted to treat him medically. According the patient, he was coyote hunting this morning. This afternoon around 3:00, he started having pain in the upper part of the chest the chest radiating across. He has an associated shortness of breath. No palpitation, dizziness, sweating or syncopal episodes. The pain is more or less persistent. According the patient, the for the last 7 hours or so, there is no complete relief of the pain. It seems to be Waxing and waning. He graded intensity of the pain a 7/10. Sometimes deep inspiration may cause some discomfort. No other associated symptoms. He has a history of intermittent atrial fibrillation, high blood pressure, dyslipidemia, type 2 diabetes, chronic kidney disease and sleep apnea. He also has a history of morbid obesity and lately lost some weight. Remote history of smoking abuse which she quit 30 years ago. No alcohol abuse or any other substance abuse. Review of Systems 2 Narrative: CONSTITUTIONAL: No fever or chills. EYES: No blurring of vision or other visual disturbances lately. ENT: No hoarseness of voice, auditory disturbances or sore throat. CARDIOVASCULAR: As mentioned above. RESPIRATORY: Sleep apnea GASTROINTESTINAL: No hematemesis or melena. GENITOURINARY: Chronic kidney disease INTEGUMENTARY: No skin rashes or history of skin cancer. NEURO: No transient ischemic attacks or amaurosis. PSYCHIATRIC: No history of psychosis or major depression. HEMATOLOGIC: On long-term oral anticoagulation ENDOCRINE: No history of polyuria or polydipsia. MUSCULOSKELETAL: No recent joint pain or swelling. ALLERGY/IMMUNOLOGY: As mentioned above. Medications/Allergies Home Medications Medication Instructions Recorded Confirmed Last Taken Type miscellaneous medical supply See Rx Instructions miscellaneous 05/09/22 06/23/24 Unknown Rx .COMPLEX #1 ea aspirin 81 mg tablet,delayed 81 mg PO DAILY PRN unknown 03/06/23 06/23/24 04/08/23 History release (Adult Aspirin Regimen) ibuprofen 200 mg tablet 400 - 600 mg PO Q6H PRN Pain 03/06/23 06/23/24 04/08/23 History semaglutide 0.25 mg or 0.5 mg (2 0.5 mg SUBCUT Q7D 03/06/23 06/23/24 04/14/23 History mg/3 mL) subcutaneous pen injector (Ozempic) tramadol 50 mg tablet 50 mg PO Q4-5H PRN Pain, Moderate 04/22/23 06/23/24 04/16/23 History insulin regular hum U-500 conc 500 See Rx Instructions .Route 08/15/23 06/23/24 Unknown Rx unit/mL subcutaneous soln (Humulin .COMPLEX #20 mL R U-500 (Concentrated) Insulin) dapagliflozin propanediol 10 mg See Rx Instructions .Route 11/08/23 06/23/24 Unknown Rx tablet (Farxiga) .COMPLEX #90 tabs clopidogrel 75 mg tablet 75 mg PO DAILY #90 tabs 11/25/23 06/23/24 Unknown Rx furosemide 40 mg tablet 40 mg PO QAM #90 tabs 11/25/23 06/23/24 Unknown Rx losartan 100 mg tablet 100 mg PO QAM #90 tabs 11/25/23 06/23/24 Unknown Rx rivaroxaban 20 mg tablet (Xarelto) 20 mg PO QAM #90 tabs 11/25/23 06/23/24 Unknown Rx simvastatin 40 mg tablet 40 mg PO QAM #90 tabs 11/25/23 06/23/24 Unknown Rx varicella-zoster glycoE vacc-AS01B 0.5 ml IM ONCE #1 ea 04/06/24 06/23/24 Unknown Rx adj(PF) 50 mcg/0.5 mL IM susp, kit (Shingrix (PF)) diabetic shoes with 3 inserts #1 ea 04/21/24 06/23/24 Unknown Rx metoprolol tartrate 25 mg tablet 25 mg PO BID #180 tabs 06/05/24 06/23/24 Unknown Rx nitroglycerin 0.4 mg sublingual 0.4 mg sublingual Q5M PRN chest 06/15/24 06/23/24 Unknown Rx tablet (Nitrostat) pain 3 months #25 tabs spironolactone 25 mg tablet 25 mg PO QAM #90 tabs 06/15/24 06/23/24 Unknown Rx meclizine 25 mg tablet See Rx Instructions .Route 07/27/24 Unknown Rx .COMPLEX #60 tabs Allergies Allergy/AdvReac Type Severity Reaction Status Date / Time No Known Allergies Allergy Verified 06/23/24 14:01 PFSH Acute 2 PFSH: Medical History Coronary artery disease Morbid obesity Diabetes HTN (hypertension) CKD (chronic kidney disease) Atrial fibrillation Diastolic dysfunction ARELY on CPAP Anticoagulant long-term use Surgical History S/P PTCA (percutaneous transluminal coronary angioplasty) S/P gastric bypass Family History Father Diabetes Social History Smoking and tobacco/nicotine status: former use of tobacco/nicotine Alcohol intake: never Household members: spouse Marital status: Vitals/I&O/Wt Last Vital Signs Temp 97.9 F 08/14/24 17:08 Pulse 79 08/14/24 21:54 Resp 12 08/14/24 21:54 BP 103/51 08/14/24 21:54 Pulse Ox 94 08/14/24 21:54 O2 Del Method Room Air 08/14/24 17:08 Weight last 48 hrs Weight 292 lb Physical Exam 2 Narrative: Chronic kidney disease chronic kidney disease GENERAL: The patient is alert and oriented times three. Not in any acute distress. HEENT: No significant pallor, icterus or lymphadenopathy.Oral cavity: There are no mucous membrane lesions. NECK: Trachea appears to be central. No masses noted. No JVD or thyromegaly appreciated. RESPIRATORY: Chest is symmetrical. No intercostals muscle retraction or any accessory muscle activation. There is some chest wall tenderness. Breath sounds are heard bilaterally. No rales or rhonchi heard. No evidence of any consolidation. BREASTS: Deferred. HEART: The heart sounds are normal. No S3 or S4. No significant murmurs. No pericardial rub ABDOMEN: No vessel pulsations or distention. No tenderness. No organomegaly appreciated. Bowel sounds are normally heard. : Deferred. RECTAL: Deferred. LYMPHATIC: No lymphadenopathy noted in the neck. EXTREMITIES: No edema or cyanosis. No clubbing. MUSCULOSKELETAL: No acute joint deformities or swelling SKIN: There are no significant rashes or ecchymosis NEUROPSYCHIATRIC: The patient is alert and oriented x3. Appears to be in a good mood. No tremors or rigidity noted. Data 08/14/24 17:30 08/14/24 17:30 Other Labs: Laboratory Last Values WBC 7.50 10^3/uL (3.29-11.43) 08/15/24 05:00 RBC 4.91 10^6/uL (3.85-5.65) 08/15/24 05:00 Hgb 14.10 g/dL (11.27-16.99) 08/15/24 05:00 Hct 41.1 % (37-53) 08/15/24 05:00 MCV 83.7 fl (82-101) 08/15/24 05:00 MCH 28.7 pg (27-33) 08/15/24 05:00 MCHC 34.3 g/dL (30-55) 08/15/24 05:00 RDW 13.2 % (12.1-15.1) 08/15/24 05:00 Plt Count 149 10^3/cmm (157-399) L 08/15/24 05:00 MPV 11.3 fL (7.4-10.4) H 08/15/24 05:00 Neut % (Auto) 84.8 % 08/15/24 05:00 Lymph % (Auto) 9.2 % 08/15/24 05:00 [place] % (Auto) 4.3 % 08/15/24 05:00 Eos % (Auto) 0.4 % 08/15/24 05:00 Baso % (Auto) 0.9 % 08/15/24 05:00 Neut # (Auto) 6.36 10^3/uL (1.8-7.7) 08/15/24 05:00 Lymph # (Auto) 0.7 10^3/uL (0.8-4.8) L 08/15/24 05:00 [place] # (Auto) 0.3 10^3/uL (0.2-0.9) 08/15/24 05:00 Eos # (Auto) 0.0 10^3/uL (0.0-0.8) 08/15/24 05:00 Baso # (Auto) 0.1 10^3/uL (0.0-0.1) 08/15/24 05:00 Nucleated RBC % (auto) 0 % 08/15/24 05:00 Nucleated RBCs # 0.0 /100WBC 08/15/24 05:00 APTT 90.9 SECONDS (23.9-36.7) H D 08/15/24 12:06 Sodium 136 mmol/L (136-145) 08/15/24 05:00 Potassium 4.3 mmol/L (3.5-5.1) 08/15/24 05:00 Chloride 102 mmol/L (98-107) 08/15/24 05:00 Carbon Dioxide 23 mmol/L (22-29) 08/15/24 05:00 Anion Gap 15.3 (5-19) 08/15/24 05:00 BUN 25 mg/dL (8-23) H 08/15/24 05:00 Creatinine 0.8 mg/dL (0.7-1.2) 08/15/24 05:00 GFR Calculation 96.1 mL/min (90-130) 08/15/24 05:00 Glucose 173 mg/dL (65-115) H 08/15/24 05:00 Calculated Osmolality 291 mOsm/kg (285-295) 08/15/24 05:00 Lactic Acid 2.5 mmol/L (0.5-2.2) H 08/14/24 17:30 Lactic Acid (Sepsis) 2.4 mmol/L (0.5-2.2) H 08/14/24 20:03 Calcium 8.9 mg/dL (8.5-10.5) 08/15/24 05:00 Magnesium 2.0 mg/dL (1.7-2.3) 08/15/24 05:00 Total Bilirubin 0.9 mg/dL (0.15-1.2) 08/14/24 17:30 AST 21 U/L (0-40) 08/14/24 17:30 ALT 21 U/L (0-41) 08/14/24 17:30 Alkaline Phosphatase 93 U/L (40-130) 08/14/24 17:30 Troponin T Baseline 17 ng/L (0-15) H 08/14/24 17:30 Troponin T 120 Minute 21.60 ng/L (0-15) H 08/14/24 19:33 Delta Troponin T 4.60 ABS# (0-10) 08/14/24 19:33 Troponin T Hi Sens 6Hr 17.24 ng/L (0-15) H 08/14/24 23:33 Troponin T Hi Sens 6Hr Delta 0.24 ng/L (0-12) 08/14/24 23:33 C-Reactive Protein 14.1 mg/L (0.0-4.9) H 08/15/24 05:00 NT-Pro-B Natriuret Pep 424 pg/mL (0-125) H 08/14/24 17:30 Total Protein 8.1 g/dL (6.6-8.7) 08/14/24 17:30 Albumin 4.5 g/dL (3.5-5.2) 08/14/24 17:30 Globulin 3.6 g/dL (1.3-4.6) 08/14/24 17:30 Coronavirus (PCR) Negative (Negative) 08/14/24 17:55 Influenza A (PCR) Negative (Negative) 08/14/24 17:55 Influenza Type B (PCR) Negative (Negative) 08/14/24 17:55 RSV (PCR) Negative (Negative) 08/14/24 17:55 Other data: Most recent categorization on 10/01/2022 Conclusions 1. No significant disease noted in the Left Main, Left Anterior Descending, Right, or Circumflex coronary arteries. 2. Normal left ventricular systolic function. Ejection fraction of 50%. A&P Assessment and plan (1) Atherosclerotic heart disease [place] coronary artery w/angina pectoris: Patient chest pain is somewhat atypical. However in view of the history of atherosclerotic heart disease and previous PCI's, possibility of worsening underlying CAD or restenosis of the standard areas are considerations. May continue on the serial cardiac enzymes and EKGs. Qualifiers: [place] vs. transplanted heart: [place] heart Qualified Code(s): I25.119 - Atherosclerotic heart disease of [place] coronary artery with unspecified angina pectoris (2) Anticoagulant long-term use: No bleeding complications. He has been taking the Xarelto. Currently it is on hold. Continue with IV heparin. (3) Atrial fibrillation: The ventricular response is under control. May continue on the current medications. Qualifiers: Atrial fibrillation type: longstanding persistent Qualified Code(s): I 48.11 - Longstanding persistent atrial fibrillation (4) HTN (hypertension): Currently the blood pressure is in the low normal side. May continue on the current management. Qualifiers: Hypertension type: essential hypertension Qualified Code(s): I10 - Essential (primary) hypertension (5) Diabetes: May be continued on the current management. 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 Need to closely monitor the BMP. Qualifiers: Chronic kidney disease stage: unspecified stage Qualified Code(s): N 18.9 - Chronic kidney disease, unspecified (7) ARELY on CPAP: The patient is on CPAP. May continue the same. Plan Hold off on the Xarelto and continue with IV heparin. In view of the ongoing symptoms, we may go ahead and do a cardiac catheterization to further evaluate the coronary status and decide on further management. Patient is reluctant to go for a Myocardial perfusion imaging. Based on the results, further recommendations will be made. Consult Attestations 2 Medical Necessity Statement: Patient requires continued hospital stay for close monitoring and further management Coding Level of Care Code 20180 Diagnoses Atherosclerosis of [place] coronary artery of [place] heart with angina pectoris I25.119 [place] vs. transplanted heart: [place] heart Anticoagulant long-term use Z79.01 Longstanding persistent atrial fibrillation I48.11 Atrial fibrillation type: longstanding persistent Essential hypertension I10 Hypertension type: essential hypertension Type 2 diabetes mellitus without complication, without long-term current use of insulin E11.9 Diabetes mellitus type: type 2 Diabetes mellitus nursing home insulin use: without nursing home use Diabetes mellitus complication status: without complication Chronic kidney disease, unspecified CKD stage N18.9 Chronic kidney disease stage: unspecified stage ARELY on CPAP G47.33; Z99.89
[2024-08-14] MEDS: nitroglycerin 1 gm/inch oint Pkt 0.5 INCH TOPICAL (22:13)
[2024-08-14] MEDS: heparin drip 25,000 UNIT/500 ML PREMIX 31.79 UNIT IV (22:45)
[2024-08-14 23:59] LABS: Troponin 5 6HR Delta 0.24 ng/L (0-12)
[2024-08-15] VITALS (11 sets, daily range): BP systolic 93–122; BP diastolic 58–71; PULSE 65–85; RESP 12–18; TEMP 36.5–36.7; O2SAT 94–98; BMI 39.6
[2024-08-15 00:04] LABS: Troponin 5 6HR 17.24 ng/L (0-15)
[2024-08-15 05:15] LABS: Basophils # 0.1 10^3/uL (0.0-0.1); Basophils % 0.9 %; Eosinophils % 0.4 %; Hematocrit 41.1 % (37-53); Lymphocytes # 0.7 10^3/uL (0.8-4.8); Lymphocytes % 9.2 %; Mean Corpuscular HGB Conc 34.3 g/dL (30-55); Mean Corpuscular Hemoglobin 28.7 pg (27-33); Mean Corpuscular Volume 83.7 fl (82-101); Mean Platelet Volume 11.3 fL (7.4-10.4); Monocytes # 0.3 10^3/uL (0.2-0.9); Monocytes % 4.3 %; Neutrophils # 6.36 10^3/uL (1.8-7.7); Neutrophils % 84.8 %; Nucleated Red Blood Cells % 0 %; Platelet Count 149 10^3/cmm (157-399); Red Blood Count 4.91 10^6/uL (3.85-5.65); Red Cell Distribution Width 13.2 % (12.1-15.1)
[2024-08-15 05:36] LABS: Partial Thromboplastin Time 33.2 SECONDS (23.9-36.7)
[2024-08-15 05:50] LABS: Anion Gap 15.3 (5-19); Blood Urea Nitrogen 25 mg/dL (8-23); C Reactive Protein 14.1 mg/L (0.0-4.9); Calcium 8.9 mg/dL (8.5-10.5); Carbon Dioxide 23 mmol/L (22-29); Chloride 102 mmol/L (98-107); Creatinine Clr Calc Pharmacy 124.4245; Glomerular Filtration Rate 96.1 mL/min (90-130); Glucose 173 mg/dL (65-115); Osmolality Calculated 291 mOsm/kg (285-295); Potassium 4.3 mmol/L (3.5-5.1); Sodium 136 mmol/L (136-145)
--- NOTE | 2024-08-15 06:30 | PC.NURSE ---
Patient order for heparin drip changed to weight based protocol this AM. Per doctor's order, titrate drip based on protocol and hold bolus.
[2024-08-15] MEDS: heparin drip 25,000 UNIT/500 ML PREMIX 40 UNIT IV (06:42)
--- NOTE | 2024-08-15 10:02 | PC.CHAP ---
Pastoral Care Encounter/Spiritual Assessment Type of Contact [] Declined tare worker visit [] Patient/Family/Request visit [] Outpatient visit [] Follow-up visit [] Physician referral [] Code/Alert [] Routine visit [] Staff referral [] Actively dying [] Patient sleeping [] Family support [] [x] Out of room [] Palliative care [] [] Receiving care in room [] Pre-surgical visit [] Trauma [] Long length of stay [] ICU visit [] Other: Relational/Emotional Strength [] Patient feels connected with others/family/visitors/staff [] Distress [] Loneliness/isolation [] Abandonment Spirituality of Patient [] Person of Ayse [] Attends Protestant of their Ayse [] Believes in Prayer [] Reads Bible or Sikh materials [] There are Spiritual issues to be addressed [place]cock Tester Interventions [] Prayer [] Active listening [] Non-anxious presence [] Spiritual/emotional support [] Crisis/trauma care [] Spiritual counseling [] Bereavement support [] Provided bereavement packet [] Provided Bible/devotional materials [] Provided toy/stuffed animal, coloring book to patient or family member [] Provided Communion [] Anointing/[place] [] Salvation [] Completed spiritual assessment [] Other: Impact on Illness or Injury [] Angry [] Fearful [] Anxious [] Often cries [] Exhaustion [] Unable to work [] Unable to attend cheondoism [] Unable to walk/stand [] Unable to read [] Unable to drive [] Unable to eat/drink [] Unable to sleep [] Unable to be with family [] Patient intubated [] Other: Summary Time spent with patient
[2024-08-15] MEDS: clopidogrel 75 mg Tablet PO (10:55)
[2024-08-15] MEDS: metoprolol tartrate 25 mg Tablet PO ×2 (10:55→17:10)
[2024-08-15] MEDS: atorvastatin 40 mg Tablet 80 MG PO (10:55)
[2024-08-15] MEDS: aspirin 81 mg EC Tablet PO (10:55)
[2024-08-15] MEDS: pantoprazole 40 mg SDV IVP ×2 (10:57→17:10)
[2024-08-15 12:36] LABS: Partial Thromboplastin Time 90.9 SECONDS (23.9-36.7)
[2024-08-15] MEDS: heparin drip 25,000 UNIT/500 ML PREMIX 35 UNIT IV (13:24)
--- NOTE | 2024-08-15 14:39 | PM.PN ---
Subjective Subjective: Patient continues to have chest pain but of less intense. He described as a constant pressure-like feeling in the chest. Even though the baseline troponin slightly elevated, there is no significant delta. The EKG also does not show any new changes. Medications: Medication Review Details: Current Medications Acetaminophen (Acetaminophen 500 Mg Tablet) 500 mg PO Q4H PRN PRN Reason: fever Albuterol/Ipratropium (Ipratropium-Albuterol 3 Ml Neb) 3 ml INHALATION Q6H PRN PRN Reason: SHORTNESS OF BREATH Aspirin (Aspirin 81 Mg Ec Tablet) 81 mg PO DAILY [facility] Last Admin: 08/15/24 10:55 Dose: 81 mg Atorvastatin Calcium (Atorvastatin 40 Mg Tablet) 80 mg PO DAILY [facility] Last Admin: 08/15/24 10:55 Dose: 80 mg Clopidogrel Bisulfate (Clopidogrel 75 Mg Tablet) 75 mg PO DAILY [facility] Last Admin: 08/15/24 10:55 Dose: 75 mg Glucagon (Glucagon 1 Mg/Ml Kit 1 Ml) 1 mg IM ONCE PRN; Protocol PRN Reason: Adult Acute Hypoglycemia Nursing Prot. Heparin Sodium (Porcine) (Heparin 5,000 Unit/Ml Inj 1 Ml) 0 unit IVP PRN PRN; Protocol PRN Reason: Heparin Weight Based Protocol -Subsequent Bolus Dextrose (D5w) 500 mls @ 0 mls/hr IV ONCE PRN; Protocol PRN Reason: Adult Acute Hypoglycemia Prot Dextrose (D10w) 125 mls @ 750 mls/hr IV PRN PRN; Protocol PRN Reason: Adult Acute Hypoglycemia Nursing Protocol Dextrose (D10w) 250 mls @ 1,000 mls/hr IV PRN PRN; Protocol PRN Reason: Adult Acute Hypoglycemia Nursing Protocol Heparin Sodium/Sodium Chloride (Heparin Drip) 25,000 unit in 500 mls @ 0 mls/hr IV CONT [facility]; Protocol Last Admin: 08/15/24 13:24 Dose: 13.21 unit/kg/hr, 35 mls/hr Insulin Human Lispro (Insulin Lispro 100 Unit/1 Ml) 0 unit SUBCUT TIDWM [facility]; Protocol Last Admin: 08/15/24 12:30 Dose: Not Given Losartan Potassium (Losartan 50 Mg Tablet) 100 mg PO QAM [facility] Last Admin: 08/15/24 07:34 Dose: Not Given Metoprolol Tartrate (Metoprolol Tartrate 25 Mg Tablet) 25 mg PO BID [facility] Last Admin: 08/15/24 10:55 Dose: 25 mg Morphine Sulfate (Morphine 4 Mg/Ml Sdv 1 Ml) 2 mg IVP Q3H PRN PRN Reason: SEVERE PAIN Ondansetron HCl (Ondansetron 2 Mg/Ml Sdv 2 Ml) 4 mg IVP Q6H PRN PRN Reason: NAUSEA AND VOMITING Pantoprazole Sodium (Pantoprazole 40 Mg Sdv) 40 mg IVP BID [facility] Last Admin: 08/15/24 10:57 Dose: 40 mg Vitals/I&O/Wt Last Vital Signs Temp 98.0 F 08/15/24 11:05 Pulse 73 08/15/24 13:48 Resp 15 08/15/24 11:05 BP 93/58 08/15/24 11:05 Pulse Ox 94 08/15/24 11:05 O2 Del Method Room Air 08/15/24 11:05 08/14/24 08/15/24 08/15/24 22:59 06:59 14:59 Intake Total 1245.584 / 1245.584 Output Total 900 / 900 Balance 345.584 / 345.584 Weight last 48 hrs Weight 286 lb 2 oz Weight 292 lb Weight 292 lb Physical Exam Narrative: Chronic kidney disease chronic kidney disease GENERAL: The patient is alert and oriented times three. Not in any acute distress. HEENT: No significant pallor, icterus or lymphadenopathy.Oral cavity: There are no mucous membrane lesions. NECK: Trachea appears to be central. No masses noted. No JVD or thyromegaly appreciated. RESPIRATORY: Chest is symmetrical. No intercostals muscle retraction or any accessory muscle activation. There is some chest wall tenderness. Breath sounds are heard bilaterally. No rales or rhonchi heard. No evidence of any consolidation. BREASTS: Deferred. HEART: The heart sounds are normal. No S3 or S4. No significant murmurs. No pericardial rub ABDOMEN: No vessel pulsations or distention. No tenderness. No organomegaly appreciated. Bowel sounds are normally heard. : Deferred. RECTAL: Deferred. LYMPHATIC: No lymphadenopathy noted in the neck. EXTREMITIES: No edema or cyanosis. No clubbing. MUSCULOSKELETAL: No acute joint deformities or swelling SKIN: There are no significant rashes or ecchymosis NEUROPSYCHIATRIC: The patient is alert and oriented x3. Appears to be in a good mood. No tremors or rigidity noted. Data 08/15/24 05:00 08/15/24 05:00 Other Labs: Laboratory Last Values WBC 7.50 10^3/uL (3.29-11.43) 08/15/24 05:00 RBC 4.91 10^6/uL (3.85-5.65) 08/15/24 05:00 Hgb 14.10 g/dL (11.27-16.99) 08/15/24 05:00 Hct 41.1 % (37-53) 08/15/24 05:00 MCV 83.7 fl (82-101) 08/15/24 05:00 MCH 28.7 pg (27-33) 08/15/24 05:00 MCHC 34.3 g/dL (30-55) 08/15/24 05:00 RDW 13.2 % (12.1-15.1) 08/15/24 05:00 Plt Count 149 10^3/cmm (157-399) L 08/15/24 05:00 MPV 11.3 fL (7.4-10.4) H 08/15/24 05:00 Neut % (Auto) 84.8 % 08/15/24 05:00 Lymph % (Auto) 9.2 % 08/15/24 05:00 [place] % (Auto) 4.3 % 08/15/24 05:00 Eos % (Auto) 0.4 % 08/15/24 05:00 Baso % (Auto) 0.9 % 08/15/24 05:00 Neut # (Auto) 6.36 10^3/uL (1.8-7.7) 08/15/24 05:00 Lymph # (Auto) 0.7 10^3/uL (0.8-4.8) L 08/15/24 05:00 [place] # (Auto) 0.3 10^3/uL (0.2-0.9) 08/15/24 05:00 Eos # (Auto) 0.0 10^3/uL (0.0-0.8) 08/15/24 05:00 Baso # (Auto) 0.1 10^3/uL (0.0-0.1) 08/15/24 05:00 Nucleated RBC % (auto) 0 % 08/15/24 05:00 Nucleated RBCs # 0.0 /100WBC 08/15/24 05:00 APTT 90.9 SECONDS (23.9-36.7) H D 08/15/24 12:06 Sodium 136 mmol/L (136-145) 08/15/24 05:00 Potassium 4.3 mmol/L (3.5-5.1) 08/15/24 05:00 Chloride 102 mmol/L (98-107) 08/15/24 05:00 Carbon Dioxide 23 mmol/L (22-29) 08/15/24 05:00 Anion Gap 15.3 (5-19) 08/15/24 05:00 BUN 25 mg/dL (8-23) H 08/15/24 05:00 Creatinine 0.8 mg/dL (0.7-1.2) 08/15/24 05:00 GFR Calculation 96.1 mL/min (90-130) 08/15/24 05:00 Glucose 173 mg/dL (65-115) H 08/15/24 05:00 Calculated Osmolality 291 mOsm/kg (285-295) 08/15/24 05:00 Lactic Acid 2.5 mmol/L (0.5-2.2) H 08/14/24 17:30 Lactic Acid (Sepsis) 2.4 mmol/L (0.5-2.2) H 08/14/24 20:03 Calcium 8.9 mg/dL (8.5-10.5) 08/15/24 05:00 Magnesium 2.0 mg/dL (1.7-2.3) 08/15/24 05:00 Total Bilirubin 0.9 mg/dL (0.15-1.2) 08/14/24 17:30 AST 21 U/L (0-40) 08/14/24 17:30 ALT 21 U/L (0-41) 08/14/24 17:30 Alkaline Phosphatase 93 U/L (40-130) 08/14/24 17:30 Troponin T Baseline 17 ng/L (0-15) H 08/14/24 17:30 Troponin T 120 Minute 21.60 ng/L (0-15) H 08/14/24 19:33 Delta Troponin T 4.60 ABS# (0-10) 08/14/24 19:33 Troponin T Hi Sens 6Hr 17.24 ng/L (0-15) H 08/14/24 23:33 Troponin T Hi Sens 6Hr Delta 0.24 ng/L (0-12) 08/14/24 23:33 C-Reactive Protein 14.1 mg/L (0.0-4.9) H 08/15/24 05:00 NT-Pro-B Natriuret Pep 424 pg/mL (0-125) H 08/14/24 17:30 Total Protein 8.1 g/dL (6.6-8.7) 08/14/24 17:30 Albumin 4.5 g/dL (3.5-5.2) 08/14/24 17:30 Globulin 3.6 g/dL (1.3-4.6) 08/14/24 17:30 Coronavirus (PCR) Negative (Negative) 08/14/24 17:55 Influenza A (PCR) Negative (Negative) 08/14/24 17:55 Influenza Type B (PCR) Negative (Negative) 08/14/24 17:55 RSV (PCR) Negative (Negative) 08/14/24 17:55 A&P Assessment and plan (1) Atherosclerotic heart disease [place] coronary artery w/angina pectoris: Patient chest pain is somewhat atypical. However in view of the history of atherosclerotic heart disease and previous PCI's, possibility of worsening underlying CAD or restenosis of the standard areas are considerations. May continue on the serial cardiac enzymes and EKGs. Patient may be continued on the IV heparin. Xarelto is on hold . In view of the ongoing symptoms, it may be appropriate to go ahead and do a cardiac catheterization to further evaluate the coronary status. We may consider that tomorrow. Qualifiers: [place] vs. transplanted heart: [place] heart Qualified Code(s): I25.119 - Atherosclerotic heart disease of [place] coronary artery with unspecified angina pectoris (2) Anticoagulant long-term use: No bleeding complications. He has been taking the Xarelto. Currently it is on hold. Continue with IV heparin. (3) Atrial fibrillation: The ventricular response is under control. May continue on the current medications. Qualifiers: Atrial fibrillation type: longstanding persistent Qualified Code(s): I48.11 - Longstanding persistent atrial fibrillation (4) HTN (hypertension): Currently the blood pressure is in the low normal side. May continue on the current management. Qualifiers: Hypertension type: essential hypertension Qualified Code(s): I10 - Essential (primary) hypertension (5) Diabetes: May be continued on the current management. 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 Need to closely monitor the BMP. Qualifiers: Chronic kidney disease stage: unspecified stage Qualified Code(s): N18.9 - Chronic kidney disease, unspecified (7) ARELY on CPAP: The patient is on CPAP. May continue the same. Plan If the patient continues to have the symptoms, we may consider the cardiac catheterization tomorrow. Will keep n.p.o. after midnight. Based on the angiogram findings, further recommendations will be made. Attestations Medical Necessity Statement*: Patient requires continued hospital stay for close monitoring and further management Coding Level of Care Code 67604 Diagnoses Atherosclerosis of [place] coronary artery of [place] heart with angina pectoris I25.119 [place] vs. 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
--- NOTE | 2024-08-15 15:11 | ECG_ITS ---
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 Measurements Intervals [place] Rate: 59 P: 0 [place]: 0 QRS: 64 QRSD: 143 T: 35 QT: 405 QTc: 402 Interpretive Statements ATRIAL FIBRILLATION WITH SLOW VENTRICULAR RESPONSE INTRAVENTRICULAR CONDUCTION DELAY [130+ ms QRS DURATION] Compared to ECG 08/14/2024 17:08:50 Intraventricular conduction delay now present Ventricular premature complex(es) no longer present Aberrant conduction of supraventricular beat(s) no longer present Electronically Signed On 08-16-2024 13:36:06 REGISTERED PRIVATE DUTY NURSE by Keesha Alfaro M.D. [email or web address]
[2024-08-15] MEDS: morphine 4 mg/mL SDV 1 mL 2 MG IVP (17:02)
[2024-08-15 19:21] LABS: Partial Thromboplastin Time 132.5 SECONDS (23.9-36.7)
--- NOTE | 2024-08-15 21:54 | P.PN_ITS ---
Subjective 2 Subjective: She is feeling tired. Having mild generalized pain. Awaiting cardiology assessment. Vitals/I&O/Wt Last Vital Signs Temp 97.7 F 08/15/24 19:00 Pulse 68 08/15/24 19:00 Resp 18 08/15/24 19:00 BP 103/65 08/15/24 19:00 Pulse Ox 96 08/15/24 19:00 O2 Del Method Room Air 08/15/24 19:00 08/15/24 08/15/24 08/15/24 06:59 14:59 22:59 Intake Total 1245.584 / 1245.584 331.167 / 1576.751 Output Total 900 / 900 675 / 1575 Balance 345.584 / 345.584 -343.833 / 1.751 Weight last 48 hrs Weight 129.784 kg Weight 132.449 kg Weight 132.449 kg Physical Exam 2 Const: COMMON NORMALS: patient oriented x3 and alert GENERAL APPEARANCE: c ooperative NUTRITIONAL APPEARANCE: obese ORIENTATION/CONSCIOUSNESS: Yes awake HENMT: COMMON NORMALS: oropharynx normal Neck/C-Spine: COMMON NORMALS: no JVD Resp: COMMON NORMALS: normal respiratory effort and clear to auscultation bilaterally AUSCULTATION: clear to auscultation bilaterally Cardio: COMMON NORMALS: no JVD, regular rhythm, S1 normal heart sound present, S2 normal heart sound present and No murmurs present (Cardio) RHYTHM: regular rhythm HEART SOUNDS: S1 normal heart sound present and S2 normal heart sound present GI: COMMON NORMALS: Normal to inspection, nondistended, normoactive bowel sounds present, Soft to palpation and non-tender PALPATION: Yes Soft to palpation Extremity: COMMON NORMALS: no joint enlargement and no pedal edema Neuro: COMMON NORMALS: patient oriented x3 and moves all extremities S ENSORIUM/ORIENTATION: Yes alert Skin: COMMON NORMALS: no rashes or lesions noted GENERAL SKIN EXAM: no rashes or lesions noted Data 08/15/24 05:00 08/15/24 05:00 A&P Assessment and plan (1) Diastolic dysfunction: (2) Atrial fibrillation: Qualifiers: Atrial fibrillation type: longstanding persistent Qualified Code(s): I 48.11 - Longstanding persistent atrial fibrillation (3) Unstable angina: (4) Anticoagulant long-term use: (5) Diabetes: Qualifiers: Diabetes mellitus type: type 2 Diabetes mellitus senior care insulin use: without senior care use Diabetes mellitus complication status: without complication Qualified Code(s): E11.9 - Type 2 diabetes mellitus without complications (6) CKD (chronic kidney disease): Qualifiers: Chronic kidney disease stage: unspecified stage Qualified Code(s): N 18.9 - Chronic kidney disease, unspecified (7) ARELY on CPAP: Plan Unstable angina Awaiting additional cardiac reassessment with consideration of further risk stratification, possible coronary angiogram. Reviewed troponin, EKG. Reviewed echocardiogram. Discussed with petal cutter. CTA chest reviewed, no PE. Scattered subcentimeter short axis nonspecific mediastinal lymph nodes. Hepatic steatosis. Coronary artery atherosclerotic classifications. Underlying coronary disease with 1 stent in the past Patient is diabetic. Reviewed BMP. Continue heparin drip. Monitor PTT. Monitor for risk of bleeding. Reassess blood counts. Hypertension: Blood pressure soft. Hold losartan for now. Type II diabetic: Continue insulin sliding scale for now A-fib without RVR: Hold off on anticoagulating agent Chronic kidney disease No acute worsening Cardiac consistent carb diet for now and then n.p.o. after midnight Full code Attestations 2 Medical Necessity Statement*: Continue admission for assessment and management of unstable angina. 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
--- NOTE | 2024-08-15 22:50 | USCV_ITS ---
Adrian Hernandez Age: 69 Gender: M : 1955 Exam Date: 08/15/2024 07:29 Ordering Phys: Keesha Alfaro MD ([email or web address]) Technologist: Issa Hernandez [place] [facility] [place]ication: UAP BP: 102 / 67 HR: 75 Rhythm: Sinus Technical Quality: Adequate MEASUREMENTS (Male / Female) Normal Values 2D ECHO LV Diastolic Diameter PLAX 4.8 cm 4.2 - 5.9 / 3.9 - 5.3 cm IVS Diastolic Thickness 1.4 cm 0.6 - 1.0 / 0.6 - 0.9 cm IVS Systolic Thickness 1.7 cm LVPW Diastolic Thickness 1.9 cm 0.6 - 1.0 / 0.6 - 0.9 cm LVPW Systolic Thickness 1.9 cm LVOT Diameter 2.1 cm LV Ejection Fraction 2D Teich 57.1 % LV Ejection Fraction MOD 4C 58.2 % LV Ejection Fraction MOD 2C 63.1 % LV Ejection Fraction 2C AL 65.0 % LA Diameter 5.3 cm RA Systolic Volume 4C AL 134.0 ml RA Systolic Volume 4C MOD 130.9 ml LA Sys Volume AL 131.0 cm cubed LA Sys Volume Index AL 49.5 cm cubed/m squared Aorta at Sinotubular Diameter 2.6 cm IVC Diameter 2.1 cm M-MODE LA Ao Ratio MM 1.7 AV Cusp Separation MM 1.9 cm DOPPLER AV Peak Velocity 129.0 cm/s LVOT Peak Velocity 83.0 cm/s AV Area Cont Eq vti 2.9 cm squared AV Area Cont Eq pk 2.2 cm squared MV Peak Velocity 128.0 cm/s MV Area PHT 4.1 cm squared Mitral E to A Ratio 5.2 TV Peak Velocity 307.5 cm/s TR Peak Velocity 333.0 cm/s TR Peak Gradient 44.4 mmHg TR Mean Velocity 241.0 cm/s TR Mean Gradient 26.1 mmHg TR Velocity Time Integral 81.0 cm PV Peak Velocity 91.0 cm/s RV Ejection Time 0.3 s FINDINGS Left Ventricle Mild concentric left renal hypertrophy with normal ejection fraction of 58%.no regional wall motion abnormalities. Grade III/IV diastolic dysfunction (restrictive filling pattern), severely elevated filling pressures. Right Ventricle The right ventricle is normal in size and function. Right Atrium Severely increased right atrial size. Left Atrium Severely increased left atrial size. Mitral Valve Moderate mitral annular calcification. Mild-moderate mitral valve regurgitation. Aortic Valve No gross abnormalities noted Tricuspid Valve Mild tricuspid valve regurgitation. Estimated pulmonary artery peak systolic pressure 29 mmHg Pulmonic Valve No gross abnormalities noted Pericardium Normal pericardium without effusion. Aorta Normal ascending aorta dimension. IVC Inferior vena cava not visualized. CONCLUSIONS Mild concentric left renal hypertrophy with normal ejection fraction of 58%.no regional wall motion abnormalities. Grade III/IV diastolic dysfunction (restrictive filling pattern), severely elevated filling pressures. Severely dilated right and left atrium. Moderate mitral annular calcification. Mild-moderate mitral valve regurgitation. Mild tricuspid valve regurgitation. Estimated pulmonary artery peak systolic pressure 29 mmHg. There is no pericardial effusion. There are no intracardiac masses. Compared to the study from 07/16/2017, no significant change Dr Keesha Alfaro MD FACC (Electronically Signed) Final Date: 15 August 2024 10:31 S
[2024-08-16] VITALS (9 sets, daily range): BP systolic 99–128; BP diastolic 56–68; PULSE 58–79; RESP 12–16; TEMP 36.5–37.1; O2SAT 96–99
[2024-08-16 01:50] LABS: Basophils # 0.1 10^3/uL (0.0-0.1); Basophils % 1.5 %; Eosinophils # 0.2 10^3/uL (0.0-0.8); Eosinophils % 3.6 %; Hematocrit 45.6 % (37-53); Lymphocytes # 1.8 10^3/uL (0.8-4.8); Lymphocytes % 33.8 %; Mean Corpuscular HGB Conc 30.9 g/dL (30-55); Mean Corpuscular Hemoglobin 28.5 pg (27-33); Mean Corpuscular Volume 92.3 fl (82-101); Mean Platelet Volume 11.2 fL (7.4-10.4); Monocytes # 0.5 10^3/uL (0.2-0.9); Monocytes % 9.2 %; Neutrophils # 2.76 10^3/uL (1.8-7.7); Neutrophils % 51.7 %; Nucleated Red Blood Cells % 0 %; Platelet Count 144 10^3/cmm (157-399); Red Blood Count 4.94 10^6/uL (3.85-5.65); Red Cell Distribution Width 13.4 % (12.1-15.1); White Blood Count 5.33 10^3/uL (3.29-11.43)
[2024-08-16 02:01] LABS: Anion Gap 25.1 (5-19); Blood Urea Nitrogen 23 mg/dL (8-23); Calcium 8.8 mg/dL (8.5-10.5); Carbon Dioxide 23 mmol/L (22-29); Chloride 95 mmol/L (98-107); Creatinine Clr Calc Pharmacy 109.4151; Glomerular Filtration Rate 83.9 mL/min (90-130); Glucose 134 mg/dL (65-115); Osmolality Calculated 294 mOsm/kg (285-295); Potassium 4.1 mmol/L (3.5-5.1); Sodium 139 mmol/L (136-145)
[2024-08-16] MEDS: atorvastatin 40 mg Tablet 80 MG PO (09:49)
[2024-08-16] MEDS: aspirin 81 mg EC Tablet PO (09:50)
[2024-08-16] MEDS: metoprolol tartrate 25 mg Tablet PO ×2 (09:50→18:06)
[2024-08-16] MEDS: clopidogrel 75 mg Tablet PO (09:50)
[2024-08-16] MEDS: pantoprazole 40 mg SDV IVP ×2 (09:50→18:07)
[2024-08-16 10:02] LABS: Partial Thromboplastin Time 57.5 SECONDS (23.9-36.7)
--- NOTE | 2024-08-16 10:38 | PM.PN ---
Subjective Subjective: patient still has some chest discomfort. But it is stable and is less intense. No unusual shortness of breath. No Significant arrhythmias on the monitor. Medications: Medication Review Details: Current Medications Acetaminophen (Acetaminophen 500 Mg Tablet) 500 mg PO Q4H PRN PRN Reason: fever Albuterol/Ipratropium (Ipratropium-Albuterol 3 Ml Neb) 3 ml INHALATION Q6H PRN PRN Reason: SHORTNESS OF BREATH Aspirin (Aspirin 81 Mg Ec Tablet) 81 mg PO DAILY [facility] Last Admin: 08/16/24 09:50 Dose: 81 mg Atorvastatin Calcium (Atorvastatin 40 Mg Tablet) 80 mg PO DAILY [facility] Last Admin: 08/16/24 09:49 Dose: 80 mg Clopidogrel Bisulfate (Clopidogrel 75 Mg Tablet) 75 mg PO DAILY [facility] Last Admin: 08/16/24 09:50 Dose: 75 mg Glucagon (Glucagon 1 Mg/Ml Kit 1 Ml) 1 mg IM ONCE PRN; Protocol PRN Reason: Adult Acute Hypoglycemia Nursing Prot. Heparin Sodium (Porcine) (Heparin 5,000 Unit/Ml Inj 1 Ml) 0 unit IVP PRN PRN; Protocol PRN Reason: Heparin Weight Based Protocol -Subsequent Bolus Dextrose (D5w) 500 mls @ 0 mls/hr IV ONCE PRN; Protocol PRN Reason: Adult Acute Hypoglycemia Prot Dextrose (D10w) 125 mls @ 750 mls/hr IV PRN PRN; Protocol PRN Reason: Adult Acute Hypoglycemia Nursing Protocol Dextrose (D10w) 250 mls @ 1,000 mls/hr IV PRN PRN; Protocol PRN Reason: Adult Acute Hypoglycemia Nursing Protocol Heparin Sodium/Sodium Chloride (Heparin Drip) 25,000 unit in 500 mls @ 0 mls/hr IV CONT LEI; Protocol Last Titration: 08/16/24 02:09 Dose: Infused Insulin Human Lispro (Insulin Lispro 100 Unit/1 Ml) 0 unit SUBCUT TIDWM [facility]; Protocol Last Admin: 08/16/24 08:11 Dose: Not Given Losartan Potassium (Losartan 50 Mg Tablet) 100 mg PO QAM [facility] Last Admin: 08/15/24 07:34 Dose: Not Given Metoprolol Tartrate (Metoprolol Tartrate 25 Mg Tablet) 25 mg PO BID [facility] Last Admin: 08/16/24 09:50 Dose: 25 mg Morphine Sulfate (Morphine 4 Mg/Ml Sdv 1 Ml) 2 mg IVP Q3H PRN PRN Reason: SEVERE PAIN Last Admin: 08/15/24 17:02 Dose: 2 mg Ondansetron HCl (Ondansetron 2 Mg/Ml Sdv 2 Ml) 4 mg IVP Q6H PRN PRN Reason: NAUSEA AND VOMITING Pantoprazole Sodium (Pantoprazole 40 Mg Sdv) 40 mg IVP BID [facility] Last Admin: 08/16/24 09:50 Dose: 40 mg Vitals/I&O/Wt Last Vital Signs Temp 97.7 F 08/16/24 04:00 Pulse 58 L 08/16/24 10:37 Resp 15 08/16/24 10:37 BP 99/62 08/16/24 10:37 Pulse Ox 96 08/16/24 10:37 O2 Del Method Room Air 08/16/24 08:09 08/15/24 08/16/24 08/16/24 22:59 06:59 14:59 Intake Total 331.167 / 1576.751 181.35 / 1758.101 Output Total 675 / 1575 525 / 2100 Balance -343.833 / 1.751 -343.65 / -341.899 Weight last 48 hrs Weight 288 lb 8 oz Weight 286 lb 2 oz Weight 292 lb Weight 292 lb Physical Exam Narrative: Chronic kidney disease chronic kidney disease GENERAL: The patient is alert and oriented times three. Not in any acute distress. HEENT: No significant pallor, icterus or lymphadenopathy.Oral cavity: There are no mucous membrane lesions. NECK: Trachea appears to be central. No masses noted. No JVD or thyromegaly appreciated. RESPIRATORY: Chest is symmetrical. No intercostals muscle retraction or any accessory muscle activation. There is some chest wall tenderness. Breath sounds are heard bilaterally. No rales or rhonchi heard. No evidence of any consolidation. BREASTS: Deferred. HEART: The heart sounds are normal. No S3 or S4. No significant murmurs. No pericardial rub ABDOMEN: No vessel pulsations or distention. No tenderness. No organomegaly appreciated. Bowel sounds are normally heard. : Deferred. RECTAL: Deferred. LYMPHATIC: No lymphadenopathy noted in the neck. EXTREMITIES: No edema or cyanosis. No clubbing. MUSCULOSKELETAL: No acute joint deformities or swelling SKIN: There are no significant rashes or ecchymosis NEUROPSYCHIATRIC: The patient is alert and oriented x3. Appears to be in a good mood. No tremors or rigidity noted. Data 08/16/24 01:04 08/16/24 01:04 Other Labs: Laboratory Last Values WBC 5.33 10^3/uL (3.29-11.43) 08/16/24 01:04 RBC 4.94 10^6/uL (3.85-5.65) 08/16/24 01:04 Hgb 14.10 g/dL (11.27-16.99) 08/16/24 01:04 Hct 45.6 % (37-53) 08/16/24 01:04 MCV 92.3 fl (82-101) D 08/16/24 01:04 MCH 28.5 pg (27-33) 08/16/24 01:04 MCHC 30.9 g/dL (30-55) D 08/16/24 01:04 RDW 13.4 % (12.1-15.1) 08/16/24 01:04 Plt Count 144 10^3/cmm (157-399) L 08/16/24 01:04 MPV 11.2 fL (7.4-10.4) H 08/16/24 01:04 Neut % (Auto) 51.7 % 08/16/24 01:04 Lymph % (Auto) 33.8 % 08/16/24 01:04 [place] % (Auto) 9.2 % 08/16/24 01:04 Eos % (Auto) 3.6 % 08/16/24 01:04 Baso % (Auto) 1.5 % 08/16/24 01:04 Neut # (Auto) 2.76 10^3/uL (1.8-7.7) 08/16/24 01:04 Lymph # (Auto) 1.8 10^3/uL (0.8-4.8) 08/16/24 01:04 [place] # (Auto) 0.5 10^3/uL (0.2-0.9) 08/16/24 01:04 Eos # (Auto) 0.2 10^3/uL (0.0-0.8) 08/16/24 01:04 Baso # (Auto) 0.1 10^3/uL (0.0-0.1) 08/16/24 01:04 Nucleated RBC % (auto) 0 % 08/16/24 01:04 Nucleated RBCs # 0.0 /100WBC 08/16/24 01:04 APTT 57.5 SECONDS (23.9-36.7) H D 08/16/24 09:42 Sodium 139 mmol/L (136-145) 08/16/24 01:04 Potassium 4.1 mmol/L (3.5-5.1) 08/16/24 01:04 Chloride 95 mmol/L (98-107) L 08/16/24 01:04 Carbon Dioxide 23 mmol/L (22-29) 08/16/24 01:04 Anion Gap 25.1 (5-19) H 08/16/24 01:04 BUN 23 mg/dL (8-23) 08/16/24 01:04 Creatinine 0.9 mg/dL (0.7-1.2) 08/16/24 01:04 GFR Calculation 83.9 mL/min (90-130) L 08/16/24 01:04 Glucose 134 mg/dL (65-115) H 08/16/24 01:04 Calculated Osmolality 294 mOsm/kg (285-295) 08/16/24 01:04 Lactic Acid 2.5 mmol/L (0.5-2.2) H 08/14/24 17:30 Lactic Acid (Sepsis) 2.4 mmol/L (0.5-2.2) H 08/14/24 20:03 Calcium 8.8 mg/dL (8.5-10.5) 08/16/24 01:04 Magnesium 2.0 mg/dL (1.7-2.3) 08/15/24 05:00 Total Bilirubin 0.9 mg/dL (0.15-1.2) 08/14/24 17:30 AST 21 U/L (0-40) 08/14/24 17:30 ALT 21 U/L (0-41) 08/14/24 17:30 Alkaline Phosphatase 93 U/L (40-130) 08/14/24 17:30 Troponin T Baseline 17 ng/L (0-15) H 08/14/24 17:30 Troponin T 120 Minute 21.60 ng/L (0-15) H 08/14/24 19:33 Delta Troponin T 4.60 ABS# (0-10) 08/14/24 19:33 Troponin T Hi Sens 6Hr 17.24 ng/L (0-15) H 08/14/24 23:33 Troponin T Hi Sens 6Hr Delta 0.24 ng/L (0-12) 08/14/24 23:33 C-Reactive Protein 14.1 mg/L (0.0-4.9) H 08/15/24 05:00 NT-Pro-B Natriuret Pep 424 pg/mL (0-125) H 08/14/24 17:30 Total Protein 8.1 g/dL (6.6-8.7) 08/14/24 17:30 Albumin 4.5 g/dL (3.5-5.2) 08/14/24 17:30 Globulin 3.6 g/dL (1.3-4.6) 08/14/24 17:30 Coronavirus (PCR) Negative (Negative) 08/14/24 17:55 Influenza A (PCR) Negative (Negative) 08/14/24 17:55 Influenza Type B (PCR) Negative (Negative) 08/14/24 17:55 RSV (PCR) Negative (Negative) 08/14/24 17:55 A&P Assessment and plan (1) Atherosclerotic heart disease [place] coronary artery w/angina pectoris: may continue on the current medications. In view of the ongoing symptoms, we may consider doing a cardiac catheterization tomorrow. Will keep n.p.o. after midnight Qualifiers: [place] vs. transplanted heart: [place] heart Qualified Code(s): I25.119 - Atherosclerotic heart disease of [place] coronary artery with unspecified angina pectoris (2) Anticoagulant long-term use: No bleeding complications. He has been taking the Xarelto. Currently it is on hold. Continue with IV heparin. (3) Atrial fibrillation: The ventricular response is under control. May continue on the current medications. Qualifiers: Atrial fibrillation type: longstanding persistent Qualified Code(s): I48.11 - Longstanding persistent atrial fibrillation (4) HTN (hypertension): Currently the blood pressure is in the low normal side. May continue on the current management. Qualifiers: Hypertension type: essential hypertension Qualified Code(s): I10 - Essential (primary) hypertension (5) Diabetes: May be continued on the current management. Qualifiers: Diabetes mellitus complication status: without complication Diabetes mellitus penitentiary insulin use: without termite control service representative use Diabetes mellitus type: type 2 Qualified Code(s): E11.9 - Type 2 diabetes mellitus without complications (6) CKD (chronic kidney disease): Currently seems to be stable. Need to closely monitor the BMP. Qualifiers: Chronic kidney disease stage: unspecified stage Qualified Code(s): N18.9 - Chronic kidney disease, unspecified (7) ARELY on CPAP: The patient is on CPAP. May continue the same. Plan because of the inclement weathe and in view of the patient's stable symptoms, it was decided to do the cardiac catheterization tomorrow. May continue the current management. Attestations Medical Necessity Statement*: Patient requires continued hospital stay for close monitoring and further management Coding Level of Care Code Acute Code for [facility] Fwd Diagnoses Atherosclerosis of [place] coronary artery of [place] heart with angina pectoris I25.119 [place] vs. transplanted heart: [place] heart Anticoagulant long-term use Z79.01 Longstanding persistent atrial fibrillation I48.11 Atrial fibrillation type: longstanding persistent Essential hypertension I10 Hypertension type: essential hypertension Type 2 diabetes mellitus without complication, without long-term current use of insulin E11.9 Diabetes mellitus complication status: without complication Diabetes mellitus penitentiary insulin use: without penitentiary use Diabetes mellitus type: type 2 Chronic kidney disease, unspecified CKD stage N18.9 Chronic kidney disease stage: unspecified stage ARELY on CPAP G47.33; Z99.89
--- NOTE | 2024-08-16 12:38 | PC.NURSE ---
Blood sugar Pt used his own dexcom for blood sugar check. It is 144 mg/dl now.
[2024-08-16] MEDS: insulin lispro 100 unit/1 mL SUBCUT (12:42)
[2024-08-16] MEDS: heparin drip 25,000 UNIT/500 ML PREMIX 19 UNIT IV (12:46)
[2024-08-16 16:22] LABS: Partial Thromboplastin Time 41.6 SECONDS (23.9-36.7)
[2024-08-16] MEDS: heparin drip 25,000 UNIT/500 ML PREMIX 24 UNIT IV (16:38)
[2024-08-16] MEDS: heparin 5,000 unit/mL INJ 1 mL IVP (16:45)
--- NOTE | 2024-08-16 18:08 | PC.NURSE ---
pt dexcom blood sugar check is 134 pt still refused to be poke with our accucheck machine.
--- NOTE | 2024-08-16 23:08 | P.PN_ITS ---
Subjective 2 Subjective: He was still having some mild chest pressure, some generalized discomfort this morning. Vitals/I&O/Wt Last Vital Signs Temp 97.7 F 08/16/24 20:05 Pulse 72 08/16/24 20:05 Resp 15 08/16/24 20:05 BP 126/65 08/16/24 20:05 Pulse Ox 99 08/16/24 20:05 O2 Del Method Room Air 08/16/24 20:05 08/16/24 08/16/24 08/17/24 14:59 22:59 06:59 Intake Total 347.916 / 347.916 Balance 347.916 / 347.916 Weight last 48 hrs Weight 130.861 kg Weight 129.784 kg Weight 132.449 kg Physical Exam 2 Const: COMMON NORMALS: patient oriented x3 and alert GENERAL APPEARANCE: c ooperative NUTRITIONAL APPEARANCE: obese ORIENTATION/CONSCIOUSNESS: Yes awake HENMT: COMMON NORMALS: oropharynx normal Neck/C-Spine: COMMON NORMALS: no JVD Resp: COMMON NORMALS: normal respiratory effort and clear to auscultation bilaterally AUSCULTATION: clear to auscultation bilaterally Cardio: COMMON NORMALS: no JVD, regular rhythm, S1 normal heart sound present, S2 normal heart sound present and No murmurs present (Cardio) RHYTHM: regular rhythm HEART SOUNDS: S1 normal heart sound present and S2 normal heart sound present GI: COMMON NORMALS: Normal to inspection, nondistended, normoactive bowel sounds present, Soft to palpation and non-tender PALPATION: Yes Soft to palpation Extremity: COMMON NORMALS: no joint enlargement and no pedal edema Neuro: COMMON NORMALS: patient oriented x3 and moves all extremities S ENSORIUM/ORIENTATION: Yes alert Skin: COMMON NORMALS: no rashes or lesions noted GENERAL SKIN EXAM: no rashes or lesions noted Data 08/16/24 01:04 08/16/24 01:04 A&P Assessment and plan (1) Diastolic dysfunction: (2) Atrial fibrillation: Qualifiers: Atrial fibrillation type: longstanding persistent Qualified Code(s): I 48.11 - Longstanding persistent atrial fibrillation (3) Unstable angina: (4) Anticoagulant long-term use: (5) Diabetes: Qualifiers: Diabetes mellitus type: type 2 Diabetes mellitus senior living insulin use: without rn long term care use Diabetes mellitus complication status: without complication Qualified Code(s): E11.9 - Type 2 diabetes mellitus without complications (6) CKD (chronic kidney disease): Qualifiers: Chronic kidney disease stage: unspecified stage Qualified Code(s): N 18.9 - Chronic kidney disease, unspecified (7) ARELY on CPAP: Plan Unstable angina Discussed with software deployment engineer, still having some chest pressure, generalized discomfort today. Discussed consideration of options of plans for coronary angiogram tomorrow morning, versus alternatives. As he has still not been feeling well, prefers to stay in hospital to pursue assessment as per discussion with cardiology. Tentatively coronary angiogram scheduled for tomorrow morning. N.p.o. after midnight. Continue to monitor in telemetry with risk of arrhythmia. Reviewed vitals, CBC, BMP. Reviewed echocardiogram, noted normal EF, but grade 3/4 diastolic dysfunction, severely elevated filling pressures, severely dilated right and left atrium, moderate MVR, estimated PA pressure 29 mmHg. Reviewed cardiology note. CTA chest reviewed, no PE. Scattered subcentimeter short axis nonspecific mediastinal lymph nodes. Hepatic steatosis. Coronary artery atherosclerotic classifications. Underlying coronary disease with 1 stent in the past Continue heparin drip. Reviewed PTT, continue to monitor. Monitor for risk of bleeding. Reassess blood counts. Hypertension: Blood pressure soft. Hold losartan for now. Type II diabetic: Continue insulin sliding scale for now A-fib without RVR: Hold off on anticoagulating agent Chronic kidney disease No acute worsening Cardiac consistent carb diet for now and then n.p.o. after midnight Full code Attestations 2 Medical Necessity Statement*: Requiring admission over 2 midnights for assessment management of unstable angina. Diagnoses Diastolic dysfunction I51.89 Longstanding persistent atrial fibrillation I48.11 Atrial fibrillation type: longstanding persistent Unstable angina I20.0 Anticoagulant long-term use Z79.01 Type 2 diabetes mellitus without complication, without long-term current use of insulin E11.9 Diabetes mellitus type: type 2 Diabetes mellitus senior living insulin use: without rn long term care use Diabetes mellitus complication status: without complication Chronic kidney disease, unspecified CKD stage N18.9 Chronic kidney disease stage: unspecified stage ARELY on CPAP G47.33; Z99.89
[2024-08-16 23:53] LABS: Partial Thromboplastin Time 99.1 SECONDS (23.9-36.7)
[2024-08-17] VITALS (29 sets, daily range): BP systolic 95–172; BP diastolic 43–75; PULSE 50–120; RESP 4–23; TEMP 36.6; O2SAT 92–100
[2024-08-17 03:53] LABS: Basophils # 0.1 10^3/uL (0.0-0.1); Eosinophils # 0.2 10^3/uL (0.0-0.8); Eosinophils % 2.9 %; Hematocrit 38.7 % (37-53); Lymphocytes # 1.8 10^3/uL (0.8-4.8); Lymphocytes % 34.4 %; Mean Corpuscular HGB Conc 33.9 g/dL (30-55); Mean Corpuscular Hemoglobin 28.5 pg (27-33); Mean Corpuscular Volume 84.3 fl (82-101); Mean Platelet Volume 11.6 fL (7.4-10.4); Monocytes # 0.6 10^3/uL (0.2-0.9); Monocytes % 11.8 %; Neutrophils # 2.57 10^3/uL (1.8-7.7); Neutrophils % 49.5 %; Nucleated Red Blood Cells % 0 %; Platelet Count 140 10^3/cmm (157-399); Red Blood Count 4.59 10^6/uL (3.85-5.65); Red Cell Distribution Width 13.2 % (12.1-15.1); White Blood Count 5.18 10^3/uL (3.29-11.43)
[2024-08-17 04:07] LABS: Anion Gap 13.9 (5-19); Blood Urea Nitrogen 16 mg/dL (8-23); Carbon Dioxide 24 mmol/L (22-29); Chloride 105 mmol/L (98-107); Creatinine Clr Calc Pharmacy 109.8938; Glomerular Filtration Rate 83.9 mL/min (90-130); Glucose 140 mg/dL (65-115); Osmolality Calculated 291 mOsm/kg (285-295); Potassium 3.9 mmol/L (3.5-5.1); Sodium 139 mmol/L (136-145)
--- NOTE | 2024-08-17 07:46 | PM.PN ---
Subjective Medications: Medication Review Details: Current Medications Acetaminophen (Acetaminophen 500 Mg Tablet) 500 mg PO Q4H PRN PRN Reason: fever Albuterol/Ipratropium (Ipratropium-Albuterol 3 Ml Neb) 3 ml INHALATION Q6H PRN PRN Reason: SHORTNESS OF BREATH Aspirin (Aspirin 81 Mg Ec Tablet) 81 mg PO DAILY [facility] Last Admin: 08/16/24 09:50 Dose: 81 mg Atorvastatin Calcium (Atorvastatin 40 Mg Tablet) 80 mg PO DAILY [facility] Last Admin: 08/16/24 09:49 Dose: 80 mg Clopidogrel Bisulfate (Clopidogrel 75 Mg Tablet) 75 mg PO DAILY [facility] Last Admin: 08/16/24 09:50 Dose: 75 mg Glucagon (Glucagon 1 Mg/Ml Kit 1 Ml) 1 mg IM ONCE PRN; Protocol PRN Reason: Adult Acute Hypoglycemia Nursing Prot. Heparin Sodium (Porcine) (Heparin 5,000 Unit/Ml Inj 1 Ml) 0 unit IVP PRN PRN; Protocol PRN Reason: Heparin Weight Based Protocol -Subsequent Bolus Last Admin: 08/16/24 16:45 Dose: 5,000 unit Dextrose (D5w) 500 mls @ 0 mls/hr IV ONCE PRN; Protocol PRN Reason: Adult Acute Hypoglycemia Prot Dextrose (D10w) 125 mls @ 750 mls/hr IV PRN PRN; Protocol PRN Reason: Adult Acute Hypoglycemia Nursing Protocol Dextrose (D10w) 250 mls @ 1,000 mls/hr IV PRN PRN; Protocol PRN Reason: Adult Acute Hypoglycemia Nursing Protocol Heparin Sodium/Sodium Chloride (Heparin Drip) 25,000 unit in 500 mls @ 0 mls/hr IV CONT LEI; Protocol Last Titration: 08/17/24 00:28 Dose: 7.93 unit/kg/hr, 21 mls/hr Sodium Chloride (Sodium Chloride 0.9%) 1,000 mls @ 50 mls/hr IV .Q20H LEI Insulin Human Lispro (Insulin Lispro 100 Unit/1 Ml) 0 unit SUBCUT TIDWM [facility]; Protocol Last Admin: 08/16/24 18:07 Dose: Not Given Losartan Potassium (Losartan 50 Mg Tablet) 100 mg PO QAM [facility] Last Admin: 08/15/24 07:34 Dose: Not Given Metoprolol Tartrate (Metoprolol Tartrate 25 Mg Tablet) 25 mg PO BID [facility] Last Admin: 08/16/24 18:06 Dose: 25 mg Morphine Sulfate (Morphine 4 Mg/Ml Sdv 1 Ml) 2 mg IVP Q3H PRN PRN Reason: SEVERE PAIN Last Admin: 08/15/24 17:02 Dose: 2 mg Ondansetron HCl (Ondansetron 2 Mg/Ml Sdv 2 Ml) 4 mg IVP Q6H PRN PRN Reason: NAUSEA AND VOMITING Pantoprazole Sodium (Pantoprazole 40 Mg Sdv) 40 mg IVP BID [facility] Last Admin: 08/16/24 18:07 Dose: 40 mg Vitals/I&O/Wt Last Vital Signs Temp 97.8 F 08/17/24 04:00 Pulse 57 L 08/17/24 05:52 Resp 13 08/17/24 04:00 BP 96/52 08/17/24 04:00 Pulse Ox 98 08/17/24 04:00 O2 Del Method Room Air 08/17/24 04:00 08/16/24 08/17/24 08/17/24 22:59 06:59 14:59 Intake Total 188 / 535.916 Balance 188 / 535.916 Weight last 48 hrs Weight 288 lb 12.8 oz Weight 288 lb 8 oz Weight 286 lb 2 oz Physical Exam Narrative: GENERAL: The patient is alert and oriented times three. Not in any acute distress. HEENT: No significant pallor, icterus or lymphadenopathy.Oral cavity: There are no mucous membrane lesions. NECK: Trachea appears to be central. No masses noted. No JVD or thyromegaly appreciated. RESPIRATORY: Chest is symmetrical. No intercostals muscle retraction or any accessory muscle activation. There is no chest wall tenderness. Breath sounds are heard bilaterally. No rales or rhonchi heard. No evidence of any consolidation. BREASTS: Deferred. HEART: The heart sounds are normal. No S3 or S4. No significant murmurs. No pericardial rub ABDOMEN: No vessel pulsations or distention. No tenderness. No organomegaly appreciated. Bowel sounds are normally heard. : Deferred. RECTAL: Deferred. LYMPHATIC: No lymphadenopathy noted in the neck. EXTREMITIES: No edema or cyanosis. No clubbing. MUSCULOSKELETAL: No acute joint deformities or swelling SKIN: There are no significant rashes or ecchymosis NEUROPSYCHIATRIC: The patient is alert and oriented x3. Appears to be in a good mood. No tremors or rigidity noted. Data 08/17/24 02:40 08/17/24 02:40 A&P Assessment and plan (1) Atherosclerotic heart disease [place] coronary artery w/angina pectoris: may continue on the current medications. In view of the ongoing symptoms, we may consider doing a cardiac catheterization tomorrow. Will keep n.p.o. after midnight Patient is still having some chest discomfort. Patient angiogram findings, further recommendations will be made. Qualifiers: [place] vs. transplanted heart: [place] heart Qualified Code(s): I25.119 - Atherosclerotic heart disease of [place] coronary artery with unspecified angina pectoris (2) Anticoagulant long-term use: No bleeding complications. He has been taking the Xarelto. Currently it is on hold. Continue with IV heparin. The Xarelto has been on hold for more than 48 hours. (3) Atrial fibrillation: The ventricular response is under control. May continue on the current medications. Qualifiers: Atrial fibrillation type: longstanding persistent Qualified Code(s): I48.11 - Longstanding persistent atrial fibrillation (4) HTN (hypertension): Currently the blood pressure is in the low normal side. May continue on the current management. Qualifiers: Hypertension type: essential hypertension Qualified Code(s): I10 - Essential (primary) hypertension (5) Diabetes: May be continued on the current management. Qualifiers: Diabetes mellitus type: type 2 Diabetes mellitus manager intermediate insulin use: without senior care use Diabetes mellitus complication status: without complication Qualified Code(s): E11.9 - Type 2 diabetes mellitus without complications (6) CKD (chronic kidney disease): Currently seems to be stable. Qualifiers: Chronic kidney disease stage: unspecified stage Qualified Code(s): N18.9 - Chronic kidney disease, unspecified (7) ARELY on CPAP: The patient is on CPAP. May continue the same. Plan Patient is scheduled for the cardiac catheterization this morning. Based on the angiogram findings, further recommendations will be made. Attestations Medical Necessity Statement*: Patient requires continued hospital stay for close monitoring and further management Coding Level of Care Code 03872 Diagnoses Atherosclerosis of [place] coronary artery of [place] heart with angina pectoris I25.119 [place] vs. transplanted heart: [place] heart Anticoagulant long-term use Z79.01 Longstanding persistent atrial fibrillation I48.11 Atrial fibrillation type: longstanding persistent Essential hypertension I10 Hypertension type: essential hypertension Type 2 diabetes mellitus without complication, without long-term current use of insulin E11.9 Diabetes mellitus type: type 2 Diabetes mellitus senior care insulin use: without manager intermediate use Diabetes mellitus complication status: without complication Chronic kidney disease, unspecified CKD stage N18.9 Chronic kidney disease stage: unspecified stage ARELY on CPAP G47.33; Z99.89
[2024-08-17 07:47] LABS: Partial Thromboplastin Time 74.2 SECONDS (23.9-36.7)
--- NOTE | 2024-08-17 07:51 | PC.NURSE ---
To biology laboratory assistant heparin drip off.
--- NOTE | 2024-08-17 07:52 | W.PM.OPSUD ---
Surgery/Procedure H&P Update DATE OF PROCEDURE: August 17, 2024 DATE H&P PERFORMED: 08/14/24 H&P UPDATE INFORMATION: I have reviewed H&P completed within last 30 days, I have examined patient prior to procedure and No changes to prior documentation PREOP DIAGNOSIS: ASHD PRIMARY INDICATION FOR PROCEDURE: Unstable angina/history of ASHD/atrial fibrillation PLANNED PROCEDURE: Left heart catheterization with a left and right coronary angiogram, possible PCI PATIENT REASSESSED PRIOR TO SEDATION, WITH NO CHANGE NOTED: Yes PHYSICAL EXAM: alert, oriented x 3, clear to auscultation bilaterally and regular rate & rhythm AIRWAY EVAL/ANESTHESIA PLAN: normal airway, see other exam findings, ASA III, Monitored Anesthesia, Local Anesthesia, Risks, benefits & alternatives of sedation and/or procedure discussed and Patient agrees to continue as planned
--- NOTE | 2024-08-17 08:30 | XACV_ITS ---
Exam Room: 2 Ht: 183 cm Wt: 131 kg BSA: 2.63 m2 Gender: Male : 1955 Any Known Allergies: No known allergies Exam Priority: Routine Procedure(s): Procedure Description: Diagnostic procedure Procedure Description: Left Heart Catheterization Procedure Description: Coronary Angiography Dominic EPSTEIN; Diagnostic Cath Status: Urgent Diagnostic Findings * The left main is a medium caliber vessel with no significant stenotic lesions. * The left left anterior descending artery is a medium caliber vessel which was found to have patent stented segment proximally. 20 to 30% diffuse in-stent narrowing was noted. The mid and distal artery was found to have mild diffuse intimal irregularities. No significant stenotic lesions were noted. A high diagonal branch, intermedius artery also was found to have mild diffuse intimal irregularities with no significant stenotic lesions. * The left circumflex artery is a medium caliber dominant vessel. The PLV branch of the artery was found to have stented segment proximally which was widely open. Mild diffuse neurological arteries are noted in the obtuse marginal branch of the artery.. * The right coronary artery is a small to medium caliber nondominant vessel which was found to have moderate diffuse disease proximally with no significant stenotic lesions.. Conclusions 1. 69-year-old white male with a history of atherosclerotic heart diseas sent previous PCI's, presents with complaints of chest pain and shortness of breath. He continued to have chest pain while being in the hospital. In order to further evaluate his coronary status, a cardiac catheterization was recommended. He underwent left heart catheterization with a left and right coronary angiogram today. The findings are as follows. 2. 1. Left main, medium caliber vessel with no significant or lesions.2. The left anterior descending artery was found to have patent stented segment proximally. There was around 30% diffuse in-stent narrowing. Mild diffuse disease was noted in the mid and distal segment of the artery. The first diagonal branch is a medium caliber vessel with mild diffuse intimal irregularities. It has a high takeoff -appears to be the intermedius artery .3. The left circumflex artery is a medium caliber dominant vessel which gives of the PLV branch. The proximal segment of the artery is stented which is patent with no significant or lesions. The right coronary artery is a nondominant small to medium caliber vessel with mild to moderate diffuse disease proximally. LVEDP of 17 mmHg. Diagnostic RX Recommendation: medical therapy and/or counseling LV EDP: 19 mmHg Left Ventriculography Findings: * LV gram was not performed because of the concern about the dye overload. Pressures Phase:Rest AO : 102 / 74 ( 87 ) @ 8:17:00 AM 100 / 71 ( 84 ) @ 8:20:00 AM 116 / 66 ( 93 ) @ 8:23:00 AM 118 / 69 ( 90 ) @ 8:23:00 AM 122 / 59 ( 81 ) @ 8:30:00 AM LV : 129 / 10 / 19 @ 8:23:00 AM 114 / 2 / 15 @ 8:23:00 AM Valves Phase:DefaultPhase AV : 0.0 @ 8:42:20 AM AV Mean Gradient: 0.0 @ 8:42:20 AM Clinical Evaluation EBL: 5mL-10mL Procedural Details Pre-Procedure Time Out. Identified patient by full name and date of as verbalized by the patient/guarantor. Does the consent match the physician's order: Yes. Accurate & Complete Informed Consent: No. Inpatient/Outpatient History & Physical on Chart: Yes. If H&P is completed, is and addenduem needed: No. Visualize and Verify Site with Patient/Guarantor: N/A. Relevant Radiology Images available: Yes. Pre-op teaching completed and patient verbalized understanding. The risks, benefits, and alternatives of sedation and/or procedure were discussed by physician. The patient agrees to continue. Procedure started. [facility] Clinical Fraility Score: 3: Managing Well. 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 Chest Pain Symptom Assessment: Typical Angina Symptoms. Cardiovascular Instability: No. Correct patient, site and procedure confirmed by cath team. PERRLA. Strong, equal hand director of global sales bilaterally. Lungs clear x 5 lobes. IV Site on Arrival: 20 gauge in the right anticubital. IV Site on Arrival: 20 gauge in the left wrist. IV Fluids: 0.9% NaCl at KVO. 0 mL infused prior to [employer]. Pre Procedural Pulses: bilateral dorsalis pedis was 2+. Pre Procedural Pulses: bilateral posterior tibial was 2+. Pre Procedural Pulses: bilateral radial was 3+. Oxygen started at 2liters/min via nasal canula. right groin was prepped with chloroprep then draped in the usual sterile fashion. right radial was prepped with chloroprep then draped in the usual sterile fashion. Physician notified. Baseline sample Acquired. HR: 77 BPM. Patient's family in the [employer] waiting room. Dr. Alfaro will update a the completion of the procedure. Equipment: 6F - Radial. Cardiac Cath Pack. ACIST Manifold Kit Model BT 2000. Heparinized Saline (2 units/mL), 1000 mL bag. Physician arrived. IABP:. Physician scrubbed in. Immediate Pre-Procedure Time Out. Correct Patient: Yes; Correct Procedure: Yes; Correct Site: Yes; Correct Patient Position: Yes; Correct Supplies: Yes; Dried Flammable Prep: Yes; Blood Products Available: NA. Lidocaine 1% infiltrated to the right radial. Arterial access obtained. ACT drawn. Results 178 seconds. Therapeutic limits - pre-heparin administration 90-150 seconds and monitoring heparin during a vascular procedure >250 seconds. A 5 german Darnell catheter in over the ecchange J wire. Multiple views taken of left coronary artery. Catheter redirected to the LV. EDP Sample taken: LV 129/10,19; HR: 74 BPM; SpO2: Off%. Pullback taken: LV 114/2,15; AO 116/66(93); Mean: 0mmHg, Peak to Peak: 0mmHg, SEP: 7sec/min; HR: 77 BPM; SpO2: Off%. Catheter removed over the exchange J wire. A 5 german JR4 catheter in over the exchange J wire. Dr. Smith called to view cineoraphy. Multiple views taken of right coronary artery. Catheter removed over the exchange J wire. Side port of sheath attached to Heparinized Saline flush at KVO to maintain patency. Dr. Alfaro scrubbed out. Dr. Smith here to view cineography. A TR Band was successful obtaining hemostatsis at the Right Radial artery insertion site. Post Procedure: Pulses reassessed and unchanged. PERRLA. Strong, equal hand director of global sales bilaterally. No VTE prophylaxis required. Medication's Wasted: Lidocaine 1% = 18 mL. Medication's Wasted: Nitro = 49.8 mg. Medication's Wasted: Heparin = 4000 units. Medication's Wasted: Other = Fentanyl 50 mcg. Medication's Wasted: Other = Hydralazine 20 mg. Medication's Wasted: Other = Benadryl 25 mg. Total IV fluids: 300 mL. Post-op diagnosis: Non-obstructive CAD. Complications: none. Estimated blood loss: 5mL-10mL. Responsiveness - Normal response to verbal stimuli; alert and oriented, PERRLA. Airway - Unaffected, no intervention required; spontaneous ventilation. Circulation: W/N/L, pulses unchanged. Nausea/Vomiting: No. Procedure completed. Patient transferred by bed to 1st floor. Vital chart was stopped. Access Site Site: Right Radial artery Sheath Size: 6 Fr Hemostasis Method: TR Band Hemostasis Success: Successful Procedure Medications Start: 8:00 AM Stop: 8:00 AM Medication: Benadryl Amount: 50 mg Route: I.V. Start: 8:05 AM Stop: 8:05 AM Medication: Versed Amount: 2 mg Route: I.V. Start: 8:05 AM Stop: 8:05 AM Medication: Fentanyl Amount: 50 mcg Route: I.V. Start: 8:12 AM Stop: 8:12 AM Medication: Nitrogylcerin Amount: 200 mcg Route: I.A. Start: 8:12 AM Stop: 8:12 AM Medication: Verapamil Amount: 5 mg Route: I.A. Start: 8:16 AM Stop: 8:16 AM Medication: Heparin Amount: 2000 units Route: I.V. Start: 8:21 AM Stop: 8:21 AM Medication: 0.9% Saline Amount: 250 ml Route: I.V. bolus I, the attending physician, have reviewed and verified all procedure medications. Yes, all medications given per verbal order History/Risk Factors Hypertension: Yes Dyslipidemia: No Peripheral Arterial Disease (PAD): No Myocardial Infarction ([place]): No Obesity: Yes Renal Disease: No Tobacco Use: Former Prior Interventions PCI: Yes CABG: No Valve Surgery: No Date of PCI: 06/21/2014 Report Signatures Finalized by Dr Keesha Alfaro MD [facility] on 08/18/2024 08:39 PM
--- NOTE | 2024-08-17 08:40 | PM.OP ---
Operative Report Date of procedure: August 17, 2024 Pre-op diagnosis: Atherosclerotic heart disease Post-op diagnosis: Atherosclerotic heart disease Procedure done: Left heart catheterization with left and right coronary angiogram Implants: Normal Surgeon: Keesha Alfaro MD Anesthesia: MAC Findings: High-grade lesion in a small diagonal branch of the left and descending artery. Patent stents. Nondominant right coronary artery Brief History: Patient with history of ASHD and previous PCI, presenting with chest pain/unstable angina Procedure: Left heart catheterization with left and right coronary angiogram Based on the angiogram findings, it was opted to treat her medically
[2024-08-17] MEDS: clopidogrel 75 mg Tablet PO (09:39)
[2024-08-17] MEDS: atorvastatin 40 mg Tablet 80 MG PO (09:39)
[2024-08-17] MEDS: pantoprazole 40 mg SDV IVP (09:40)
[2024-08-17] MEDS: aspirin 81 mg EC Tablet PO (09:40)
--- NOTE | 2024-08-17 10:10 | PC.NURSE ---
received pt from cath tr band intact w/15 mls of air. no hematoma,swelling or bleeding. radial pulse is palpable. activity restrictions discuss to pt. call light within reach. son at bedside.
--- NOTE | 2024-08-17 11:07 | PC.NURSE ---
TR band air removal 11am- 3mls of air removed from TR band.no hematoma,swelling or bleeding. radial pulse palpable +3,activity restrictions on arm discussed.
--- NOTE | 2024-08-17 14:02 | PM.DCS ---
Discharge Providers Date of Admission: 08/14/24 20:26 Date of Discharge: August 17, 2024 Attending Provider at Admission: Valerie Neri MD Attending Provider at Discharge: Ross Nair MD Consults: Cardiology: Dr. Alfaro Primary Care Provider: Kermit Fields DO Diagnoses at Discharge Discharge Diagnosis (1) Atherosclerotic heart disease [place] coronary artery w/angina pectoris: Status: Acute Qualifiers: [place] vs. transplanted heart: [place] heart Qualified Code(s): I25.119 - Atherosclerotic heart disease of [place] coronary artery with unspecified angina pectoris (2) Anticoagulant long-term use: Status: Acute (3) Atrial fibrillation: Status: Acute Qualifiers: Atrial fibrillation type: longstanding persistent Qualified Code(s): I48.11 - Longstanding persistent atrial fibrillation (4) HTN (hypertension): Status: Acute Qualifiers: Hypertension type: essential hypertension Qualified Code(s): I10 - Essential (primary) hypertension (5) Diabetes: Status: Acute Qualifiers: Diabetes mellitus complication status: without complication Diabetes mellitus termite helper insulin use: without fdc use Diabetes mellitus type: type 2 Qualified Code(s): E11.9 - Type 2 diabetes mellitus without complications (6) CKD (chronic kidney disease): Status: Acute Qualifiers: Chronic kidney disease stage: unspecified stage Qualified Code(s): N18.9 - Chronic kidney disease, unspecified (7) ARELY on CPAP: Status: Acute Reason for Visit Reason for Visit: chest pain Brief History: Adrian Hernandez is a 69 year old male with history of salvage coronary to disease with previous template done by Dr. Vicente in the past, presenting with chief complaint chest pain. Patient is stating that he was sitting in a chair today around 2:30 PM when he start experiencing chest pain he describing his pain as pressure-like sensation, cramping in his chest radiating towards his left arm associated with nausea. He has not experienced vomiting, fever, diarrhea but he is endorsing shortness of breath. Workup in the ER is unremarkable EKG without acute changes however he is complaining of active chest pain required opioids to control his pain. I requested cardiology consult through the ER patient will need an angiogram. I have requested heparin drip and Nitropaste for now. Hospital Course Hospital Course Patient was roomed to the hospital further evaluation and management of unstable angina. Cardiology was consulted and he underwent cardiac angiogram on 08/17/2024 which showed patent stent, high-grade lesion of small diagonal branch of LAD. Patient's hospitalization with was unremarkable. Echocardiogram was done which showed normal EF with grade 3 diastolic dysfunction, severely dilated RA and LA with estimated PASP of 29 mmHg. He has been discharged hemodynamically stable condition on Plavix, Xarelto. His home dose of spironolactone has been discontinued. Imdur 30 mg oral daily has been added to his medication list. He is to follow-up with nurse practitioner from cardiology office, his PCP next 2 weeks. Physical Exam Const: COMMON NORMALS: patient oriented x3 and alert GENERAL APPEARANCE: cooperative NUTRITIONAL APPEARANCE: obese ORIENTATION/CONSCIOUSNESS: Yes awake HENMT: COMMON NORMALS: oropharynx normal Neck/C-Spine: COMMON NORMALS: no JVD Resp: COMMON NORMALS: normal respiratory effort and clear to auscultation bilaterally AUSCULTATION: clear to auscultation bilaterally Cardio: COMMON NORMALS: no JVD, regular rhythm, S1 normal heart sound present, S2 normal heart sound present and No murmurs present (Cardio) RHYTHM: regular rhythm HEART SOUNDS: S1 normal heart sound present and S2 normal heart sound present GI: COMMON NORMALS: Normal to inspection, nondistended, normoactive bowel sounds present, Soft to palpation and non-tender PALPATION: Yes Soft to palpation Extremity: COMMON NORMALS: no joint enlargement and no pedal edema Neuro: COMMON NORMALS: patient oriented x3 and moves all extremities SENSORIUM/ORIENTATION: Yes alert Skin: COMMON NORMALS: no rashes or lesions noted GENERAL SKIN EXAM: no rashes or lesions noted Discharge Data Studies Completed and Pending Completed Studies During Hospitalization Category Date Time Status CT angio chest PE protcl [id number] Stat Cat Scan 08/14/24 18:24 Completed XR chest 1V portable [id number] Stat Exams 08/14/24 17:17 Completed CV. 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 Chest CTA 08/14/24 18:24 IMPRESSION: 1. Negative for pulmonary embolus. 2. Scattered subcentimeter short axis nonspecific mediastinal lymph nodes. 3. Coronary artery atherosclerotic calcifications. 4. Hepatic steatosis. 5. Multilevel bridging degenerative calcifications throughout the spine. Echocardiogram: CONCLUSIONS Mild concentric left renal hypertrophy with normal ejection fraction of 58%.no regional wall motion abnormalities. Grade III/IV diastolic dysfunction (restrictive filling pattern), severely elevated filling pressures. Severely dilated right and left atrium. Moderate mitral annular calcification. Mild-moderate mitral valve regurgitation. Mild tricuspid valve regurgitation. Estimated pulmonary artery peak systolic pressure 29 mmHg. There is no pericardial effusion. There are no intracardiac masses. Compared to the study from 07/16/2017, no significant change Dr Keesha Alfaro MD [facility] (Electronically Signed) Final Date: 15 August 2024 10:31 Laboratory Results WBC 5.18 10^3/uL (3.29-11.43) 08/17/24 02:40 RBC 4.59 10^6/uL (3.85-5.65) 08/17/24 02:40 Hgb 13.10 g/dL (11.27-16.99) 08/17/24 02:40 Hct 38.7 % (37-53) 08/17/24 02:40 MCV 84.3 fl (82-101) 08/17/24 02:40 MCH 28.5 pg (27-33) 08/17/24 02:40 MCHC 33.9 g/dL (30-55) D 08/17/24 02:40 RDW 13.2 % (12.1-15.1) 08/17/24 02:40 Plt Count 140 10^3/cmm (157-399) L 08/17/24 02:40 MPV 11.6 fL (7.4-10.4) H 08/17/24 02:40 Neut % (Auto) 49.5 % 08/17/24 02:40 Lymph % (Auto) 34.4 % 08/17/24 02:40 [place] % (Auto) 11.8 % 08/17/24 02:40 Eos % (Auto) 2.9 % 08/17/24 02:40 Baso % (Auto) 1.0 % 08/17/24 02:40 Neut # (Auto) 2.57 10^3/uL (1.8-7.7) 08/17/24 02:40 Lymph # (Auto) 1.8 10^3/uL (0.8-4.8) 08/17/24 02:40 [place] # (Auto) 0.6 10^3/uL (0.2-0.9) 08/17/24 02:40 Eos # (Auto) 0.2 10^3/uL (0.0-0.8) 08/17/24 02:40 Baso # (Auto) 0.1 10^3/uL (0.0-0.1) 08/17/24 02:40 Nucleated RBC % (auto) 0 % 08/17/24 02:40 Nucleated RBCs # 0.0 /100WBC 08/17/24 02:40 APTT 74.2 SECONDS (23.9-36.7) H 08/17/24 06:21 Sodium 139 mmol/L (136-145) 08/17/24 02:40 Potassium 3.9 mmol/L (3.5-5.1) 08/17/24 02:40 Chloride 105 mmol/L (98-107) 08/17/24 02:40 Carbon Dioxide 24 mmol/L (22-29) 08/17/24 02:40 Anion Gap 13.9 (5-19) 08/17/24 02:40 BUN 16 mg/dL (8-23) 08/17/24 02:40 Creatinine 0.9 mg/dL (0.7-1.2) 08/17/24 02:40 GFR Calculation 83.9 mL/min (90-130) L 08/17/24 02:40 Glucose 140 mg/dL (65-115) H 08/17/24 02:40 Calculated Osmolality 291 mOsm/kg (285-295) 08/17/24 02:40 Lactic Acid 2.5 mmol/L (0.5-2.2) H 08/14/24 17:30 Lactic Acid (Sepsis) 2.4 mmol/L (0.5-2.2) H 08/14/24 20:03 Calcium 9.0 mg/dL (8.5-10.5) 08/17/24 02:40 Magnesium 2.0 mg/dL (1.7-2.3) 08/15/24 05:00 Total Bilirubin 0.9 mg/dL (0.15-1.2) 08/14/24 17:30 AST 21 U/L (0-40) 08/14/24 17:30 ALT 21 U/L (0-41) 08/14/24 17:30 Alkaline Phosphatase 93 U/L (40-130) 08/14/24 17:30 Troponin T Baseline 17 ng/L (0-15) H 08/14/24 17:30 Troponin T 120 Minute 21.60 ng/L (0-15) H 08/14/24 19:33 Delta Troponin T 4.60 ABS# (0-10) 08/14/24 19:33 Troponin T Hi Sens 6Hr 17.24 ng/L (0-15) H 08/14/24 23:33 Troponin T Hi Sens 6Hr Delta 0.24 ng/L (0-12) 08/14/24 23:33 C-Reactive Protein 14.1 mg/L (0.0-4.9) H 08/15/24 05:00 NT-Pro-B Natriuret Pep 424 pg/mL (0-125) H 08/14/24 17:30 Total Protein 8.1 g/dL (6.6-8.7) 08/14/24 17:30 Albumin 4.5 g/dL (3.5-5.2) 08/14/24 17:30 Globulin 3.6 g/dL (1.3-4.6) 08/14/24 17:30 Coronavirus (PCR) Negative (Negative) 08/14/24 17:55 Influenza A (PCR) Negative (Negative) 08/14/24 17:55 Influenza Type B (PCR) Negative (Negative) 08/14/24 17:55 RSV (PCR) Negative (Negative) 08/14/24 17:55 Vitals Last Vital Signs Temp 97.9 F 08/17/24 11:29 Pulse 75 08/17/24 11:29 Resp 16 08/17/24 11:29 BP 113/67 08/17/24 11:29 Pulse Ox 97 08/17/24 11:29 O2 Del Method Room Air 08/17/24 11:29 Discharge Plan Discharge Patient Disposition: Home Condition: Stable Prescriptions: New isosorbide mononitrate 30 mg tablet extended release 24 hr 30 mg PO DAILY Qty: 30 0RF Continued clopidogrel 75 mg tablet 75 mg PO DAILY Qty: 90 6RF furosemide 40 mg tablet 40 mg PO QAM Qty: 90 3RF Hold Instructions: Resume on 10/02/22. losartan 100 mg tablet 100 mg PO QAM Qty: 90 6RF Xarelto 20 mg tablet 20 mg PO QAM Qty: 90 6RF simvastatin 40 mg tablet 40 mg PO QAM Qty: 90 3RF nitroglycerin [Nitrostat] 0.4 mg tablet, sublingual 0.4 mg SUBLINGUAL Q5M PRN (Reason: chest pain) 90 Days Qty: 25 3RF Rx Instructions: do not exceed 3 doses per episode (DME) diabetic shoes with 3 inserts See Rx Instructions .Route .MEDSUPPLY Qty: 1 0RF Rx Instructions: As directed to the shoe gracia metoprolol tartrate 25 mg tablet 25 mg PO BID Qty: 180 3RF Humulin R U-500 (Conc) Insulin 500 unit/mL solution See Rx Instructions .ROUTE .COMPLEX Qty: 20 6RF Rx Instructions: 90 units in the am, 20 units at noon and 90 units at bedtime Farxiga 10 mg tablet See Rx Instructions .ROUTE .COMPLEX Qty: 90 1RF Dose Instruction: TAKE 1 TABLET BY MOUTH every morning Rx Instructions: TAKE 1 TABLET BY MOUTH every morning meclizine 25 mg tablet See Rx Instructions .ROUTE .COMPLEX Qty: 60 1RF Dose Instruction: TAKE 1 TABLET BY MOUTH TWICE DAILY NEEDED FOR dizziness Rx Instructions: TAKE 1 TABLET BY MOUTH TWICE DAILY NEEDED FOR dizziness Ozempic 0.25 mg or 0.5 mg (2 mg/3 mL) pen injector 0.5 mg SUBCUT Q7D Rx Instructions: on saturday Discontinued spironolactone 25 mg tablet 25 mg PO QAM Qty: 90 3RF aspirin [Adult Aspirin Regimen] 81 mg tablet,delayed release (DR/EC) 81 mg PO DAILY PRN (Reason: unknown) ibuprofen 200 mg Tablet 400 - 600 mg PO Q6H PRN (Reason: Pain) Discharge Orders: Discharge Order (Routine); Ordered 08/17/24 Ordered By: Ross Nair Referrals: Kermit Fields DO [Primary Care Provider] - 2 weeks Verónica Bradley NP [Nurse Practitioner] - 08/26/24 3:15 pm Discharge Diet: Cardiac Discharge Activity: Resume usual activity and Increase activity as tolerated Patient Instructions: Coronary Artery Disease (DC), Chest Pain (DC), Opioid Safety, Post Angiogram Home Care Instructions Activity Restrictions/Additional Instructions: Goal blood pressure less than 140/90 mmHg. Check your blood pressure daily at home maintain a blood pressure diary. Do not take aspirin anymore. Continue taking Xarelto and Plavix. Do not take spironolactone anymore. Try to avoid ibuprofen. Instead take Imdur 30 mg oral daily. Follow-up with a primary care provider with a blood pressure diary within next 2 weeks. Follow-up with nurse practitioner from cardiology office within next 2 weeks. Discharge Attestations Time Spent in Discharge Care*: greater than 30 min Specific Discharge Activities: educating patient, educating and/or supporting family/caregiver, discussing with pcp/other providers, discussing with employment case manager/social workers/dc planners, documenting/other paperwork and evaluating patient/reviewing data Status at Discharge: Cognitive status at discharge: cognitively intact, Behavioral status at discharge: cooperative, Functional status at discharge: independent ambulation, Overall status at discharge: patient is back to baseline Quality Metrics Clinical Quality Measures [ No reported AMI, CVA or VTE this stay] Coding Level of Care Code 24889 Total time (in minutes) for Discharge: 60 Diagnoses Atherosclerosis of [place] coronary artery of [place] heart with angina pectoris I25.119 [place] vs. transplanted heart: [place] heart Anticoagulant long-term use Z79.01 Longstanding persistent atrial fibrillation I48.11 Atrial fibrillation type: longstanding persistent Essential hypertension I10 Hypertension type: essential hypertension Type 2 diabetes mellitus without complication, without long-term current use of insulin E11.9 Diabetes mellitus complication status: without complication Diabetes mellitus termite helper insulin use: without termite helper use Diabetes mellitus type: type 2 Chronic kidney disease, unspecified CKD stage N18.9 Chronic kidney disease stage: unspecified stage ARELY on CPAP G47.33; Z99.89
--- NOTE | 2024-08-17 14:26 | PC.SOCIAL ---
IMM updated IMM dated and initialed, copy given to patient and copy placed in chart.
== END 2024-08-17 16:05 | disposition home or self-care (01) | DRG 287 ==
LOC: ER 21:03 → ER IP 22:02 → MEDSURG 08-15 02:38 → CSU 08-16 08:10
PROVIDERS: Internal Medicine; Internal Medicine Cardiovascular Disease; Admitting Provider Internal Medicine; Emergency Provider Emergency Medicine; PCP Family Medicine; Visit Provider Student in an Organized Health Care Education/Training Program
PROC: B211YZZ Fluoroscopy of Multiple Coronary Arteries using Other Contrast (ICD-10-PCS; principal; 2024-08-17 08:50)
DX: I25.119 Atherosclerotic heart disease of native coronary artery with unspecified angina pectoris (principal); I48.11 Longstanding persistent atrial fibrillation; I13.0 Hypertensive heart and chronic kidney disease with heart failure and stage 1 through stage 4 chronic kidney disease, or unspecified chronic kidney disease; I50.32 Chronic diastolic (congestive) heart failure; Z79.01 Long term (current) use of anticoagulants; E11.22 Type 2 diabetes mellitus with diabetic chronic kidney disease; N18.9 Chronic kidney disease, unspecified; G47.33 Obstructive sleep apnea (adult) (pediatric); Z79.02 Long term (current) use of antithrombotics/antiplatelets; Z79.4 Long term (current) use of insulin; Z79.85 Long-term (current) use of injectable non-insulin antidiabetic drugs; Z79.82 Long term (current) use of aspirin; E66.01 Morbid (severe) obesity due to excess calories; Z68.39 Body mass index [BMI] 39.0-39.9, adult; Z98.84 Bariatric surgery status; I16.0 Hypertensive urgency; Z99.89 Dependence on other enabling machines and devices
CPT/HCPCS: 36415; 71045; 71275; 80048; 80053; 83605; 83735; 83880; 84484; 85025; 85347; 85730; 86140; 87637; 93005; 93306; 93458; 96365; 96366; 96372; 96374; 96375; 96376; 99152; 99285; C1769; C1887; C1894; J0360; J1171; J1200; J1644; J1815; J2250; J2270; J2405; J2470; J3010; J3490; J7030; Q9967

== ENCOUNTER → 2024-08-24 12:45 | Outpatient (BNVA) | payer MEDICARE, SELFPAY | PROVIDERS: PCP Family Medicine; Visit Provider Podiatrist Foot & Ankle Surgery | DX: G62.9 Polyneuropathy, unspecified (principal); L91.0 Hypertrophic scar; L60.3 Nail dystrophy; E11.8 Type 2 diabetes mellitus with unspecified complications; L84 Corns and callosities; E11.42 Type 2 diabetes mellitus with diabetic polyneuropathy; Z79.4 Long term (current) use of insulin | CPT/HCPCS: 11056; 11721; 99213 ==

== ENCOUNTER → 2024-08-26 15:07 | Outpatient (BNVA) | payer MEDICARE, SELFPAY | PROVIDERS: PCP Family Medicine; Visit Provider Nurse Practitioner Family | DX: I25.10 Atherosclerotic heart disease of native coronary artery without angina pectoris (principal); Z98.61 Coronary angioplasty status; Z79.01 Long term (current) use of anticoagulants; I48.11 Longstanding persistent atrial fibrillation; I13.10 Hypertensive heart and chronic kidney disease without heart failure, with stage 1 through stage 4 chronic kidney disease, or unspecified chronic kidney disease; E11.22 Type 2 diabetes mellitus with diabetic chronic kidney disease; N18.9 Chronic kidney disease, unspecified; Z79.4 Long term (current) use of insulin | CPT/HCPCS: 36415; 80048; 85025; 99213 ==

== ENCOUNTER → 2024-10-28 09:42 | Outpatient (BNVA) | payer MEDICARE, SELFPAY | PROVIDERS: PCP Family Medicine; Visit Provider Podiatrist Foot & Ankle Surgery | DX: E11.42 Type 2 diabetes mellitus with diabetic polyneuropathy (principal); L60.3 Nail dystrophy; L84 Corns and callosities; G62.9 Polyneuropathy, unspecified; Z79.4 Long term (current) use of insulin | CPT/HCPCS: 11056; 11721; 99213 ==

== ENCOUNTER → 2024-11-23 13:37 | Outpatient (BNVA) | payer MEDICARE, SELFPAY | PROVIDERS: PCP Family Medicine; Visit Provider Internal Medicine Cardiovascular Disease | DX: I48.11 Longstanding persistent atrial fibrillation (principal); Z79.01 Long term (current) use of anticoagulants; I25.10 Atherosclerotic heart disease of native coronary artery without angina pectoris; I12.9 Hypertensive chronic kidney disease with stage 1 through stage 4 chronic kidney disease, or unspecified chronic kidney disease; E11.22 Type 2 diabetes mellitus with diabetic chronic kidney disease; N18.9 Chronic kidney disease, unspecified; Z79.4 Long term (current) use of insulin; Z79.85 Long-term (current) use of injectable non-insulin antidiabetic drugs; E78.5 Hyperlipidemia, unspecified; G47.33 Obstructive sleep apnea (adult) (pediatric); Z95.5 Presence of coronary angioplasty implant and graft; Z87.891 Personal history of nicotine dependence | CPT/HCPCS: 99214 ==

== ENCOUNTER → 2024-12-30 09:36 | Outpatient (BNVA) | payer MEDICARE, SELFPAY | PROVIDERS: PCP Family Medicine; Visit Provider Podiatrist Foot & Ankle Surgery | DX: L60.3 Nail dystrophy (principal); G62.9 Polyneuropathy, unspecified; L84 Corns and callosities; E11.42 Type 2 diabetes mellitus with diabetic polyneuropathy; Z79.4 Long term (current) use of insulin | CPT/HCPCS: 11056; 11721 ==

== ENCOUNTER → 2025-01-14 15:02 | Outpatient (BNVA) | payer MEDICARE, SELFPAY | PROVIDERS: PCP Family Medicine; Visit Provider Family Medicine | DX: J06.9 Acute upper respiratory infection, unspecified (principal); R09.89 Other specified symptoms and signs involving the circulatory and respiratory systems; R05.9 Cough, unspecified | CPT/HCPCS: 71046 ==

== ENCOUNTER 2025-01-19 11:13 | Outpatient (CLI) | payer MEDICARE, SELFPAY ==
--- NOTE | 2025-01-19 12:15 | CT_ITS ---
WS: [id number] CT CHEST, ABDOMEN AND PELVIS NONCONTRAST. HISTORY: Tightness in chest, lightheadedness. Short of breath. Nausea and vomiting. Hemoptysis. TECHNIQUE: Contiguous 5 mm axial imaging performed through the chest, abdomen and pelvis without IV contrast, oral contrast has not been provided. Coronal and sagittal reformats chest. Coronal and sagittal reformats through the abdomen and pelvis. All CT scans at [facility] use at least one of these dose optimization techniques: automated exposure control; mA and/or kV adjustment per patient size (includes targeted exams where dose is matched to clinical indication); or iterative reconstruction. CONTRAST: None DLP: 1377.51 mGy.cm COMPARISON: CT angiogram 08/14/2024 9 prior chest, abdomen and pelvis CT 03/06/2023. Chest CT: Lungs are clear and well aerated. No pneumonia, mass or nodule. No pericardial or pleural effusions. Normal size aorta and pulmonary artery. Mild atherosclerosis aorta. Small mediastinal and hilar lymph nodes. Dense coronary artery calcifications. Bilateral extensive gynecomastia. Advanced thoracic spondylosis. Large anterior bridging osteophytes. Degenerative endplate changes at T5-6. Abdomen CT: Liver and spleen are normal size. Normally distended gallbladder with cholelithiasis. No evidence for acute cholecystitis. Common bile duct is not dilated. Mild fatty replacement and atrophy of the pancreas. Mild nodularity of the LEFT adrenal gland. Normal RIGHT adrenal gland. No renal obstruction. Stable exophytic 1.2 cm mass lower pole LEFT kidney. No RIGHT renal mass or obstruction. Moderate atherosclerosis aorta. No aneurysmal dilatation of the aorta. Heavily calcified splenic artery. LEFT gastric artery is also heavily calcified. No ascites or adenopathy. Stomach is not distended. Status post gastric bypass. No small bowel obstruction. Subtle area of mesenteric stranding in the LEFT central abdomen extends to involve a loop of small bowel. Seen best on the coronal images, image 51 of series 11. There may be a small associated small bowel diverticulum pr esent. Appendix is elongated and contains appendicoliths. No appendicitis. Diffuse mild constipation. No colon obstruction. Mild sigmoid diverticulosis. Short segment sigmoid wall thickening extends over a length of 4.6 cm. There is circumferential wall thickening and narrowing of the lumen. Mild pericolonic inflammatory changes. There are adjacent diverticula. No pathologically enlarged lymph nodes. Tiny fat-containing umbilical hernia. Bilateral abdominal wall subcutaneous masses. These are symmetric and likely injection sites and also noted on the prior study from 03/06/2023. Pelvic CT: Nondistended urinary bladder. No free fluid in the pelvis. No adenopathy. CT/[place] [id number] IMPRESSION: 1. Short segment sigmoid stricture with wall thickening and pericolonic inflam mation. There are small associated diverticula. This may be a focal area of div erticulitis. Neoplasm is not excluded. Favor neoplasm over diverticulitis at th is time. Recommend colonoscopy. No abscess. 2. Additional area of mild inflammation involving the LEFT mesentery extending to a loop of small bowel. There is a tiny outpouching from the small bowel whi ch may be a diverticulum. Recommend short-term follow-up after treatment for di verticulitis. Recommend follow-up in [address] IV and oral contrast w ould be most helpful. 3. No pulmonary mass or pneumonia. 4. Dense coronary artery calcifications. 5. Extensive bilateral gynecomastia. 6. Cholelithiasis without acute cholecystitis. 7. No appendicitis. Notified Kermit Fields DO at 01/19/2025 12:[address] Fields was not availa ble at this time.
[2025-01-19 12:19] LABS: Basophils # 0.1 10^3/uL (0.0-0.1); Basophils % 1.4 %; Eosinophils # 0.2 10^3/uL (0.0-0.8); Eosinophils % 2.6 %; Hematocrit 43.8 % (37-53); Lymphocytes # 1.8 10^3/uL (0.8-4.8); Lymphocytes % 20.7 %; Mean Corpuscular HGB Conc 32.6 g/dL (30-55); Mean Corpuscular Volume 85.7 fl (82-101); Mean Platelet Volume 11.8 fL (7.4-10.4); Monocytes # 0.6 10^3/uL (0.2-0.9); Monocytes % 6.9 %; Neutrophils # 5.86 10^3/uL (1.8-7.7); Neutrophils % 68.2 %; Nucleated Red Blood Cells % 0 %; Platelet Count 167 10^3/cmm (157-399); Red Blood Count 5.11 10^6/uL (3.85-5.65); Red Cell Distribution Width 13.8 % (12.1-15.1); White Blood Count 8.59 10^3/uL (3.29-11.43)
[2025-01-19 12:25] LABS: Erythrocyte Sedimentation Rate 13 mm/hr (0-10)
[2025-01-19 12:31] LABS: Estmated Average Glucose 143; Hemoglobin A1C 6.6 % (4.0-6.0)
[2025-01-19 12:42] LABS: Alanine Aminotransferase 19 U/L (0-41); Albumin Level 4.2 g/dL (3.5-5.2); Alkaline Phosphatase 75 U/L (40-130); Aspartate Amino Transferase 18 U/L (0-40); Blood Urea Nitrogen 21 mg/dL (8-23); C Reactive Protein 7.4 mg/L (0.0-4.9); Calcium 9.5 mg/dL (8.5-10.5); Carbon Dioxide 23 mmol/L (22-29); Chloride 102 mmol/L (98-107); Globulin 3.1 g/dL (1.3-4.6); Glomerular Filtration Rate 83.9 mL/min (90-130); Glucose 142 mg/dL (65-115); Osmolality Calculated 293 mOsm/kg (285-295); Sodium 139 mmol/L (136-145); Total Bilirubin 0.7 mg/dL (0.15-1.2); Total Protein 7.3 g/dL (6.6-8.7)
[2025-01-19 12:43] LABS: Anion Gap 18.3 (5-19); Potassium 4.3 mmol/L (3.5-5.1)
[2025-01-19 12:55] LABS: Vitamin B12 422 pg/mL (232-1245)
[2025-01-21 07:05] LABS: Lyme AB Screen <0.90 index
[2025-01-22 22:25] LABS: F.tularensis IgG AB Serum Negative (Negative); F.tularensis IgM AB Serum Negative (Negative)
[2025-01-25 18:39] LABS: Fungitell 1-3-B Glucan Assay 43 pg/mL (<60); Interpretation Negative (Negative)
[2025-01-26 17:30] LABS: E. Chaffeensis AB IGG <1:64; E. Chaffeensis AB IGM <1:20
[2025-01-26 21:15] LABS: RMSF IGG DETECTED; RMSF IGM NOT DETECTED
== END 2025-01-19 11:14 | disposition home or self-care (01) ==
PROVIDERS: PCP Family Medicine; Visit Provider Family Medicine
DX: K80.00 Calculus of gallbladder with acute cholecystitis without obstruction (principal); R05.8 Other specified cough; R06.02 Shortness of breath; R10.9 Unspecified abdominal pain; R11.10 Vomiting, unspecified; R50.9 Fever, unspecified; R53.83 Other fatigue; R79.89 Other specified abnormal findings of blood chemistry; J06.9 Acute upper respiratory infection, unspecified; N18.9 Chronic kidney disease, unspecified; R05.9 Cough, unspecified; W57.XXXA Bitten or stung by nonvenomous insect and other nonvenomous arthropods, initial encounter; E11.9 Type 2 diabetes mellitus without complications
CPT/HCPCS: 36415; 71250; 74176; 80053; 82607; 83036; 85025; 85651; 86140; 86160; 86618; 86666; 86668; 86757; 87449

== ENCOUNTER → 2025-01-21 10:37 | Outpatient (BNVA) | payer MEDICARE, SELFPAY | PROVIDERS: PCP Family Medicine; Visit Provider Student in an Organized Health Care Education/Training Program | DX: R93.3 Abnormal findings on diagnostic imaging of other parts of digestive tract (principal) | CPT/HCPCS: 99204 ==

== ENCOUNTER 2025-02-16 06:33 | Day surgery (SDC) | payer MEDICARE, SELFPAY ==
[2025-02-16 06:52] VITALS: BP 134/79; PULSE 73; RESP 15; TEMP 36.3; O2SAT 98; BMI 38.0
--- NOTE | 2025-02-16 07:59 | ANES.PREANE2 ---
Pre-Anesthetic Assessment Height/Weight: Height 1.83 m Weight 127.006 kg Temp Pulse Resp BP Pulse Ox O2 Del Method 97.3 F L 73 15 134/79 98 Room Air 02/16/25 06:52 02/16/25 06:52 02/16/25 06:52 02/16/25 06:52 02/16/25 06:52 02/16/25 06:52 Preop Diagnosis: screen Operation Date: 02/16/25 08:00 Proposed Procedures p Colonoscopy 99399 G0105 R93.3(Not Applicable) - Khurram Bowen MD Was Beta Monica taken within 24 hours: Yes (metoprol) Last intake: Intake Last Liquid Date 02/15/25 Last Liquid Time 22:00 Last Solid Date 02/14/25 Last Solid Time 17:30 Social No tobacco Exam alert, oriented x 3, clear to auscultation bilaterally and regular rate & rhythm Airway Submandibular: within normal limits Cervical ROM: within normal limits Mallampati: Class II Dentition: false History/ROS No significant history except as noted and No significant complaints Pulmonary None reported CV/HEM None reported None reported Hepatic None reported GI None reported Metabolic None reported Musc/skel None reported Neuropsych None reported Anesthetic Plan ASA status: 3 Anesthesia: MAC Risk of > 500 ml blood loss (7ml/kg in children): No Medications/Allergies Home Medications ?Medication ?Instructions ?Recorded ?Confirmed ?Last Taken ?Type semaglutide 0.25 mg or 0.5 mg (2 0.5 mg SUBCUT Q7D 03/06/23 02/10/25 02/07/25 History mg/3 mL) subcutaneous pen injector (Ozempic) insulin regular hum U-500 conc 500 See Rx Instructions .Route 08/15/23 02/16/25 02/15/25 06:00 Rx unit/mL subcutaneous soln (Humulin .COMPLEX #20 mL R U-500 (Concentrated) Insulin) diabetic shoes with 3 inserts #1 ea 04/21/24 01/21/25 Unknown Rx metoprolol tartrate 25 mg tablet 25 mg PO BID #180 tabs 06/05/24 02/16/25 02/16/25 Rx CPAP supplies #1 ea 08/25/24 01/21/25 Unknown Rx isosorbide mononitrate 30 mg 30 mg PO DAILY #90 tabs 08/25/24 02/16/25 02/15/25 Rx tablet,extended release 24 hr nitroglycerin 0.4 mg sublingual 0.4 mg sublingual Q5M PRN chest 08/25/24 02/10/25 Unknown Rx tablet (Nitrostat) pain 3 months #25 tabs albuterol sulfate 90 mcg/actuation 2 inh inhalation QID PRN shortness 01/05/25 02/10/25 Unknown Rx aerosol inhaler of breath or wheezing #8.5 grams clopidogrel 75 mg tablet 75 mg PO DAILY 02/10/25 02/10/25 02/10/25 History dapagliflozin propanediol 10 mg 10 mg PO DAILY 02/10/25 02/16/25 02/14/25 History tablet (Farxiga) furosemide 40 mg tablet 40 mg PO DAILY 02/10/25 02/16/25 02/14/25 History losartan 100 mg tablet 100 mg PO DAILY 02/10/25 02/16/25 02/15/25 History meclizine 25 mg tablet 25 mg PO DAILY PRN Dizziness 02/10/25 02/10/25 Unknown History rivaroxaban 20 mg tablet (Xarelto) 20 mg PO DAILY 02/10/25 02/10/25 02/10/25 History Held on 02/16/25. Instructions: Resume on 02/17/25. simvastatin 40 mg tablet 40 mg PO DAILY 02/10/25 02/16/25 02/15/25 History Allergies Allergy/AdvReac Type Severity Reaction Status Date / Time No Known Allergies Allergy Verified 02/10/25 09:53 Current Medications Generic Name Dose Route Start Last Admin Trade Name Ejq PRN Reason Stop Dose Admin Sodium Chloride 1,000 mls @ 15 mls/hr 02/16/25 06:39 02/16/25 07:05 Sodium Chloride 0.9% IV 02/17/25 06:38 15 mls/hr .Q24H PRN Administration COLONOSCOPY FLUIDS PFSH Anesthesia Medical History (Updated 01/27/25 @ 05:37 by Kermit Fields DO) Coronary artery disease Morbid obesity Diabetes HTN (hypertension) CKD (chronic kidney disease) Atrial fibrillation Diastolic dysfunction ARELY on CPAP Anticoagulant long-term use Surgical History S/P PTCA (percutaneous transluminal coronary angioplasty) S/P gastric bypass Family History Father Diabetes Social History Smoking and tobacco/nicotine status: never used tobacco/nicotine Alcohol intake: never Household members: spouse Marital status: Data Anesthesia Cardiac Studies: Echocardiogram 08/15/24
--- NOTE | 2025-02-16 08:05 | W.PM.OPSUD ---
Surgery/Procedure H&P Update DATE OF PROCEDURE: February 16, 2025 DATE H&P PERFORMED: 01/21/25 H&P UPDATE INFORMATION: I have reviewed H&P completed within last 30 days, I have examined patient prior to procedure and No changes to prior documentation PREOP DIAGNOSIS: screen PLANNED PROCEDURE: Operation Date: 02/16/25 08:00 Proposed Procedures p Colonoscopy 31228 G0105 R93.3(Not Applicable) - Khurram Bowen MD
--- NOTE | 2025-02-16 08:23 | PC.NURSE ---
Cecum time 0821
[2025-02-16 08:38] VITALS: BP 130/89; PULSE 73; RESP 10; TEMP 36.3; O2SAT 96
[2025-02-16 08:48] VITALS: BP 120/83; PULSE 67; RESP 16; O2SAT 92
[2025-02-16 08:57] VITALS: BP 121/83; PULSE 66; RESP 16; O2SAT 94
--- NOTE | 2025-02-16 09:05 | ANE.PACU2 ---
Inpatient post-anesthesia follow up: Airway intact: Yes Vital signs: Temperature 97.4 F Pulse Rate 66 Respiratory Rate 16 Blood Pressure 121/83 Pulse Oximetry 94 Oxygen Delivery Me thod Room Air Oxygen Flow Rate Fraction of Inspir ed Oxygen Hydration adequate: Yes Nausea and vomiting: No Pain level: 1 Mental status: Baseline
== END 2025-02-16 09:08 | disposition home or self-care (01) ==
PROVIDERS: PCP Family Medicine; Visit Provider Student in an Organized Health Care Education/Training Program
PROC: 0DJD8ZZ Inspection of Lower Intestinal Tract, Via Natural or Artificial Opening Endoscopic (ICD-10-PCS; CPT 45378; principal; 2025-02-16 08:00)
DX: Z12.11 Encounter for screening for malignant neoplasm of colon (principal); K62.1 Rectal polyp; K57.30 Diverticulosis of large intestine without perforation or abscess without bleeding; Z79.85 Long-term (current) use of injectable non-insulin antidiabetic drugs; Z79.02 Long term (current) use of antithrombotics/antiplatelets; Z79.4 Long term (current) use of insulin; I25.10 Atherosclerotic heart disease of native coronary artery without angina pectoris; E66.01 Morbid (severe) obesity due to excess calories; Z68.38 Body mass index [BMI] 38.0-38.9, adult; G47.33 Obstructive sleep apnea (adult) (pediatric); E11.22 Type 2 diabetes mellitus with diabetic chronic kidney disease; I48.91 Unspecified atrial fibrillation; N18.9 Chronic kidney disease, unspecified; I12.9 Hypertensive chronic kidney disease with stage 1 through stage 4 chronic kidney disease, or unspecified chronic kidney disease; Z98.84 Bariatric surgery status
CPT/HCPCS: 36416; 45385; 82962; 88305; J2704; J7030

== ENCOUNTER → 2025-03-01 07:46 | Outpatient (BNVA) | payer MEDICARE, SELFPAY | PROVIDERS: PCP Family Medicine; Visit Provider Student in an Organized Health Care Education/Training Program | DX: Z09 Encounter for follow-up examination after completed treatment for conditions other than malignant neoplasm (principal) | CPT/HCPCS: 99213 ==

== ENCOUNTER → 2025-03-03 08:38 | Outpatient (BNVA) | payer MEDICARE, SELFPAY | PROVIDERS: PCP Family Medicine; Visit Provider Podiatrist Foot & Ankle Surgery | DX: E11.42 Type 2 diabetes mellitus with diabetic polyneuropathy (principal); L60.3 Nail dystrophy; L84 Corns and callosities; G62.9 Polyneuropathy, unspecified; Z79.4 Long term (current) use of insulin | CPT/HCPCS: 11056; 11721 ==

== ENCOUNTER 2025-03-16 12:38 | Outpatient (CLI) | payer MEDICARE, SELFPAY ==
--- NOTE | 2025-03-16 12:44 | XRR_ITS ---
PROCEDURE INFORMATION: Exam: XR Bilateral Knees, Standing, Anteroposterior Exam date and time: 03/16/2025 1:03 PM Age: 69 years old Clinical indication: Pain; Knee; Bilateral; Additional info: M25.561 - pain in right knee TECHNIQUE: Imaging protocol: Radiologic exam of the bilateral knees. Views: Standing frontal. COMPARISON: CR XR foot LT min 3V* [id number] 02/10/2024 11:17 AM FINDINGS: Bones/joints: No acute fracture or traumatic malalignment. Degenerative changes are present involving both knee joints greatest in the medial tibiofemoral compartments and greater on the left. There is chronic appearing cortical thickening involving the visualized fibula and tibia bilaterally. Soft tissues: Normal. Vasculature: Vascular calcifications. XR/[place] [id number] IMPRESSION: As above.
== END 2025-03-16 12:39 | disposition home or self-care (01) ==
LOC: RAD 12:40
PROVIDERS: PCP Family Medicine; Visit Provider Family Medicine
DX: M25.561 Pain in right knee (principal); M25.562 Pain in left knee; M10.9 Gout, unspecified
CPT/HCPCS: 73565

== ENCOUNTER 2025-04-12 05:00 | Outpatient (CLI) | payer MEDICARE, SELFPAY | END 2025-04-12 05:01 | disposition home or self-care (01) | LOC: SPT 04-27 14:52 | PROVIDERS: Visit Provider Student in an Organized Health Care Education/Training Program | DX: M17.0 Bilateral primary osteoarthritis of knee (principal) | CPT/HCPCS: 20610; 99214; J3301; J9999; L1851 ==

== ENCOUNTER → 2025-05-27 14:49 | Outpatient (BNVA) | payer MEDICARE, SELFPAY | PROVIDERS: Visit Provider Internal Medicine Cardiovascular Disease | DX: I48.91 Unspecified atrial fibrillation (principal); I25.10 Atherosclerotic heart disease of native coronary artery without angina pectoris; Z98.61 Coronary angioplasty status; I13.10 Hypertensive heart and chronic kidney disease without heart failure, with stage 1 through stage 4 chronic kidney disease, or unspecified chronic kidney disease; E11.22 Type 2 diabetes mellitus with diabetic chronic kidney disease; N18.9 Chronic kidney disease, unspecified; Z79.4 Long term (current) use of insulin; Z87.891 Personal history of nicotine dependence; Z79.01 Long term (current) use of anticoagulants | CPT/HCPCS: 99214 ==

== ENCOUNTER → 2025-06-02 08:12 | Outpatient (BNVA) | payer MEDICARE, SELFPAY | PROVIDERS: Visit Provider Podiatrist Foot & Ankle Surgery | DX: E11.42 Type 2 diabetes mellitus with diabetic polyneuropathy (principal); L60.3 Nail dystrophy; L84 Corns and callosities; E11.8 Type 2 diabetes mellitus with unspecified complications; G62.9 Polyneuropathy, unspecified; E11.621 Type 2 diabetes mellitus with foot ulcer; L97.512 Non-pressure chronic ulcer of other part of right foot with fat layer exposed; Z79.4 Long term (current) use of insulin; Z79.85 Long-term (current) use of injectable non-insulin antidiabetic drugs | CPT/HCPCS: 11055; 11721; 99214 ==

== ENCOUNTER → 2025-07-14 14:50 | Outpatient (BNVA) | payer MEDICARE, SELFPAY | PROVIDERS: Visit Provider Student in an Organized Health Care Education/Training Program | DX: M17.0 Bilateral primary osteoarthritis of knee (principal); Z71.89 Other specified counseling | CPT/HCPCS: 20610; 99213; J3301; J9999 ==